=== PATIENT | female | born 2000 | race Caucasian/White ===

== ENCOUNTER 2021-04-07 16:18 | Outpatient (REF) | payer OTHER, MEDICAID, SELFPAY ==
[2021-04-07 18:00] LABS: Alanine Aminotransferase 50 U/L (0-31); Albumin Level 4.3 g/dL (3.5-5.0); Alkaline Phosphatase 52 U/L (39-117); Aspartate Amino Transferase 21 U/L (5-31); Bilirubin Direct < 0.2 mg/dL (0.0-0.5); Bilirubin Total 0.3 mg/dL (0.0-1.0); Total Protein 6.9 g/dL (6.5-8.0)
== END 2021-04-07 16:19 | disposition home or self-care (01) ==
LOC: HO.LAB 16:18
PROVIDERS: PCP Internal Medicine; Visit Provider Psychiatry & Neurology Neurology
DX: G35 Multiple sclerosis (principal)
CPT/HCPCS: 36415; 80076

== ENCOUNTER 2021-10-26 08:35 | Outpatient (REF) | payer OTHER, MEDICAID, SELFPAY | END 2021-10-26 08:36 | disposition home or self-care (01) | LOC: HO.MDS 08:35 | PROVIDERS: PCP Internal Medicine; Visit Provider Psychiatry & Neurology Neurology | DX: G35 Multiple sclerosis (principal) | CPT/HCPCS: 96365; J2930 ==

== ENCOUNTER 2021-10-27 08:53 | Outpatient (REF) | payer OTHER, MEDICAID, SELFPAY | END 2021-10-27 08:54 | disposition home or self-care (01) | LOC: HO.MDS 08:53 | PROVIDERS: PCP Internal Medicine; Visit Provider Psychiatry & Neurology Neurology | DX: G35 Multiple sclerosis (principal) | CPT/HCPCS: 96365; J2930 ==

== ENCOUNTER 2021-10-27 15:43 | Inpatient (IN) | payer OTHER, MEDICAID, SELFPAY ==
[2021-10-27] VITALS (9 sets, daily range): BP systolic 106–132; BP diastolic 68–109; PULSE 87–166; RESP 16–18; TEMP 37; O2SAT 98–99; BMI 49.7
--- NOTE | ~2021-10-27 | XR_ITS ---
EXAMINATION: XR CHEST CLINICAL INFORMATION: Shortness of breath COMPARISON: None TECHNIQUE: 2 views of the chest were obtained. FINDINGS: No significant abnormality is noted involving the heart, lungs, mediastinum, bony thorax or soft tissues. XR/XR chest 2V IMPRESSION: Unremarkable chest examination.
--- NOTE | 2021-10-27 15:47 | ECG_ITS ---
Test Reason : TACHYCARDIA Blood Pressure : / mmHG Vent. Rate : 161 BPM Atrial Rate : 000 BPM P-R Int : 000 ms QRS Dur : 068 ms QT Int : 272 ms P-R-T Axes : 000 044 048 degrees QTc Int : 445 ms Atrial fibrillation with rapid ventricular response Nonspecific ST abnormality Abnormal ECG When compared with ECG of 26-JAN-2019 02:03, Atrial fibrillation has replaced Sinus rhythm Vent. rate has increased BY [address] now depressed in Anterior leads Referred By: Daphne Walsh Electronically Signed By:Fredi Otoole
--- NOTE | 2021-10-27 15:58 | ECG_ITS ---
Test Reason : TACHYCARDIA Blood Pressure : / mmHG Vent. Rate : 113 BPM Atrial Rate : 000 BPM P-R Int : 000 ms QRS Dur : 070 ms QT Int : 318 ms P-R-T Axes : 000 041 040 degrees QTc Int : 436 ms Atrial fibrillation with rapid ventricular response Abnormal ECG When compared with ECG of 27-OCT-2021 15:44, No significant change was found Referred By: En Valladares Electronically Signed By:Fredi Otoole
[2021-10-27] MEDS: dilTIAZem HCL 50 MG/10 ML VIAL 10 MG IVPUSH ×2 (16:08→18:39)
--- NOTE | 2021-10-27 16:19 | ED_ITS ---
HPI - Arrhythmia/Palpitations General Chief Complaint: Arrhythmia/Palpitations Stated Complaint: RAPID HEART RATE 165 Time Seen by Provider: 10/27/21 15:47 Source: patient Mode of arrival: ambulatory Limitations: no limitations History of Present Illness HPI narrative: Patient is a 21-year-old female with a past medical history of SVT, multiple sclerosis. August 2021 was evaluated at [facility] for SVT requiring adenosine. She reports just prior to arrival around 1500 she was experiencing palpitations, shortness of breath, chest discomfort consistent with prior episodes of SVT. She trialed vagal maneuvers without improvement. The heart rate was irregular for EMS concerning for atrial fibrillation, no medications were given rate ranging from 140-180. Upon arrival to the emergency department she continued to have palpitations, but she reports that her chest discomfort and shortness of breath had improved, and heart rate was around 140s. She states earlier today she received a Solu-Medrol infusion for multiple sclerosis exacerbation. She is currently followed by [facility] neurology Dr. Atwood, is prescribed Gilenya for MS and has been on for 4-5 years. MD complaint: rapid heart beat and palpitations Onset (ago): hour(s) Time: 15:00 Duration: constant Arrhythmia history: SVT Associated symptoms: chest pain and shortness of breath Treatments prior to arrival: vagal maneuvers Related Data Home Medications Medication Instructions Recorded Confirmed cholecalciferol (vitamin D3) 1,250 1,250 mcg PO SA 10/27/21 10/27/21 mcg (50,000 unit) tablet fingolimod 0.5 mg capsule (Gilenya) 1 cap PO DAILY 10/27/21 10/27/21 norgestimate 0.25 mg-ethinyl 1 tab PO DAILY 10/27/21 10/27/21 estradiol 35 mcg tablet (Woodward-Linyah) Allergies Allergy/AdvReac Type Severity Reaction Status Date / Time glatiramer (copolymer 1) Allergy Intermediate SHORTNESS Verified 10/27/21 16:05 [From COPAXONE] OF BREATH Review of Systems Review of Systems: Constitutional: No weight loss, fever, chills, weakness or fatigue. HEENT: No visual loss, blurred vision, double vision. No sneezing, congestion, runny nose or sore throat. Skin: No rash or itching. Cardiovascular: + chest pain and palpitations. No pedal edema. Respiratory: + shortness of breath No cough or sputum production. Gastrointestinal: No anorexia, nausea, vomiting or diarrhea. No abdominal pain or blood in stool. Genitourinary: No burning micturition. No urinary frequency or incontinence. Neurologic: No headache, dizziness, syncope, unilateral weakness, ataxia, numbness or tingling in the extremities. Musculoskeletal: No muscle pain, back pain, joint pain or stiffness. Hematologic: No bleeding or bruising. Lymphatics: No enlarged lymph nodes. Psychiatric:No depression or anxiety. Endocrine: No reports of sweating. No cold or heat intolerance. No polyuria or polydipsia. [facility] Past Medical History Attestation statement: The following information was validated with the patient. Source: old records reviewed Medical History Multiple sclerosis PCOS (polycystic ovarian syndrome) SVT (supraventricular tachycardia) Social History Social History Patient Tobacco Use Status: Never used Tobacco Use of substances other than those prescribed or required for medical reasons: No Advance Directives: No Advance Directives Information Provided: No Physical Exam Vital Signs: Vital Signs: Last Vital Signs Pulse 112 H 10/27/21 17:38 Resp 16 10/27/21 17:38 BP 132/76 10/27/21 17:38 Pulse Ox 99 10/27/21 16:11 BMI result Body Mass Index 49.7 Vital signs have been reviewed and appeared to be correct. Blood pressure normal.? Heart rate irregular? Respiration rate normal. Temperature normal.? Oxygen saturation normal. Appearance: Alert.?Oriented to person, place and time. No acute distress.?Normal affect. Eyes: Pupils equal, round and reactive to light.? ENT: Pharynx normal.?? Neck: Normal inspection.? Neck supple.?? CVS: Heart sounds normal. Atrial fibrillation with RVR. Pulses normal.?? Respiratory: No respiratory distress.? Lung sounds clear to auscultation bilaterally?? Abdomen: Soft and non-tender. Normoactive bowel sounds. No pulsatile mass.?? Skin: Skin warm and dry.? Normal skin color.? Normal skin turgor.?? Extremities: No lower extremity edema.? No calf ttp? Neuro: Moves all extremities spontaneously. Sensation intact bilaterally. CN II- XII intact. No focal neuro deficits. Ambulates with normal steady gait. Course Course Course Narrative: Patient is a 21-year-old female who presents emergency department for evaluation of palpitations. Initial EKG on arrival reveals atrial fibrillation with RVR, approximate rate 161. Initially administered Cardizem 10 mg IV which decreased rate to the 110's, repeat EKG continues to reveal atrial fibrillation with RVR. Patient reports no past history of atrial fibrillation. At this time chest pain and shortness of breath have resolved. She is on oral contraceptives Iman is obese, denies history of cigarette smoking, personal history of DVT/PE with/cancer, recent hospitalizations/immobilization, extensive travel, will obtain D-dimer to exclude pulmonary embolism. Will obtain CBC to evaluate for leukocytosis/ anemia, CMP to evaluate for abnormal electrolytes /abnormal renal function/ abnormal hepatic function, EKG and troponin to evaluate for ischemia/ACS. TSH to evaluate for abnormal thyroid function. Chest x-ray to evaluate for consolidation/ infiltrate/ mass/ pulmonary congestion. Urinalysis to evaluate for infection. Will administer second dose of Cardizem 20 mg IV at this time for a total of 30 mg thus far. Reevaluation(s) Reevaluation #1: Patient continues to be in AFib with RVR, rate up to 160's. Patient to receive Cardizem 20mg IV. Troponin is elevated at 65.6 a few insert orders for repeat delta troponin. Hyperthyroidism, TSH is low 0.2 with free T4 of 0.88. CMP unremarkable. D-dimer <150, unlikely to be pulmonary embolism. CBC reveals a significant leukocytosis of 20.8, which may be secondary to IV corticosteroid, tachycardia, stressors, however, urinalysis and chest x-ray are pending at this time to evaluate for infectious process. Spoke with fish tender Dr. Otoole recommend hospital admission at this time, to consider beta-mireya for rate control given hyperthyroidism, can use long-acting if blood pressure will tolerate otherwise try short-acting. Hypotension. She continues to be well- appearing, denies chest pain or shortness of breath, ambulatory with steady gait, no diaphoresis. Time: 17:27 Reevaluation #2: At this time ordered Cardizem 10 mg IV bolus and Cardizem continuous infusion starting at 5 mg in addition to metoprolol tartrate 25 mg p.o. Spoke with hospitalist Dr. Garcia for admission and rate control accepted patient. Urinal ysis was sent, pending evaluation at this time. Patient and her mother updated on all results and plan of care, agreeable for admission. Time: 18:15 MDM - Arrhythmia/Palpitations Lab Data Result diagrams: 10/27/21 17:15 10/27/21 16:41 Labs: Lab Results 10/27/21 10/27/21 10/27/21 Range/Units 16:22 16:22 16:41 WBC (4.8-10.8) X10*3/uL RBC (4.20-5.50) X10*6/uL Hgb (12.0-16.0) g/dl Hct (37.0-47.0) % MCV (80.0-98.0) fL MCH (27.0-33.0) pg MCHC (31.0-35.0) g/dl RDW (11.0-16.0) % Plt Count (160-400) X10*3/uL MPV (9.4-12.3) fL Immature Gran % (Auto) (0.0-0.4) % Neut % (Auto) (45-73) % Lymph % (Auto) (20-40) % Woodward % (Auto) (2-11) % Eos % (Auto) (0-4) % Baso % (Auto) (0-2) % Lymph # (Auto) (1.2-4.9) X10*3/uL Woodward # (Auto) (0.1-1.2) X10*3/uL Eos # (Auto) (0.0-0.4) X10*3/uL Baso # (Auto) (0.0-0.2) X10*3/uL Abs Immat Gran (auto) (0.00-0.03) X10*3/uL Absolute Neuts (auto) (2.0-8.3) x10*3/uL Absolute Nucleated RBC (0.0-0.012) X10*3/uL Nucleated RBC % (auto) (0.0-0.2) /100WBC Smear Tech's Comments PT 10.3 (9.9-13.0) SEC INR 0.9 (0.9-1.1) APTT 25.6 (24.1-38.0) SEC D-Dimer High Sensitivty < 150 NG/ML Sodium 141 (135-145) mmol/L Potassium 4.7 (3.3-5.1) mmol/L Chloride 108 (96-108) mmol/L Carbon Dioxide 22 (22-29) mmol/L Anion Gap 16 (12-20) BUN 11 (9-16) mg/dL Creatinine 0.84 (0.5-1.4) mg/dL Estim Creat Clear Calc 136.6 Estimated GFR > 60 Random Glucose 201 H (60-115) mg/dL Calcium 10.1 (8.4-10.2) mg/dL Total Bilirubin 0.4 (0.0-1.0) mg/dL AST 14 (5-31) U/L ALT 24 (0-31) U/L Alkaline Phosphatase 62 (39-117) U/L Troponin I High Sens (<3.5-17.0) ng/L B-Natriuretic Peptide (<100) pg/mL Total Protein 7.6 (6.5-8.0) g/dL Albumin 4.5 (3.5-5.0) g/dL TSH 0.20 L (0.32-4.0) uIU/mL Free T4 0.88 (0.71-1.85) ng/dL Urine Color Urine Appearance Urine pH (5.0-8.0) Ur Specific Hoffman (1.005-1.025) Urine Protein (NEG-TRACE) MG/DL Urine Glucose (UA) (NEG) MG/DL Urine Ketones (NEG) MG/DL Urine Blood (NEG) Urine Nitrite (NEG) Ur Leukocyte Esterase (NEG) Urine Test (NEGATIVE) COVID-19 (JEWELL) (Negative) COVID-19 Clin Com 10/27/21 10/27/21 10/27/21 Range/Units 16:41 16:41 17:15 WBC 20.8 H (4.8-10.8) X10*3/uL RBC 4.87 (4.20-5.50) X10*6/uL Hgb 14.5 (12.0-16.0) g/dl Hct 43.4 (37.0-47.0) % MCV 89.1 (80.0-98.0) fL MCH 29.8 (27.0-33.0) pg MCHC 33.4 (31.0-35.0) g/dl RDW 12.3 (11.0-16.0) % Plt Count 453 H (160-400) X10*3/uL MPV 9.8 (9.4-12.3) fL Immature Gran % (Auto) 0.7 H (0.0-0.4) % Neut % (Auto) 94.3 H (45-73) % Lymph % (Auto) 2.6 L (20-40) % Woodward % (Auto) 2.2 (2-11) % Eos % (Auto) 0.0 (0-4) % Baso % (Auto) 0.2 (0-2) % Lymph # (Auto) 0.6 L (1.2-4.9) X10*3/uL Woodward # (Auto) 0.5 (0.1-1.2) X10*3/uL Eos # (Auto) 0.0 (0.0-0.4) X10*3/uL Baso # (Auto) 0.0 (0.0-0.2) X10*3/uL Abs Immat Gran (auto) 0.14 H (0.00-0.03) X10*3/uL Absolute Neuts (auto) 19.7 H (2.0-8.3) x10*3/uL Absolute Nucleated RBC 0.000 (0.0-0.012) X10*3/uL Nucleated RBC % (auto) 0.0 (0.0-0.2) /100WBC Smear Tech's Comments VERIFIED PT (9.9-13.0) SEC INR (0.9-1.1) APTT (24.1-38.0) SEC D-Dimer High Sensitivty NG/ML Sodium (135-145) mmol/L Potassium (3.3-5.1) mmol/L Chloride (96-108) mmol/L Carbon Dioxide (22-29) mmol/L Anion Gap (12-20) BUN (9-16) mg/dL Creatinine (0.5-1.4) mg/dL Estim Creat Clear Calc Estimated GFR Random Glucose (60-115) mg/dL Calcium (8.4-10.2) mg/dL Total Bilirubin (0.0-1.0) mg/dL AST (5-31) U/L ALT (0-31) U/L Alkaline Phosphatase (39-117) U/L Troponin I High Sens 65.6 H* (<3.5-17.0) ng/L B-Natriuretic Peptide 77 Cancelled (<100) pg/mL Total Protein (6.5-8.0) g/dL Albumin (3.5-5.0) g/dL TSH (0.32-4.0) uIU/mL Free T4 (0.71-1.85) ng/dL Urine Color Urine Appearance Urine pH (5.0-8.0) Ur Specific Hoffman (1.005-1.025) Urine Protein (NEG-TRACE) MG/DL Urine Glucose (UA) (NEG) MG/DL Urine Ketones (NEG) MG/DL Urine Blood (NEG) Urine Nitrite (NEG) Ur Leukocyte Esterase (NEG) Urine Test (NEGATIVE) COVID-19 (JEWELL) (Negative) COVID-19 Clin Com 10/27/21 10/27/21 10/27/21 Range/Units 18:06 18:06 18:06 WBC (4.8-10.8) X10*3/uL RBC (4.20-5.50) X10*6/uL Hgb (12.0-16.0) g/dl Hct (37.0-47.0) % MCV (80.0-98.0) fL MCH (27.0-33.0) pg MCHC (31.0-35.0) g/dl RDW (11.0-16.0) % Plt Count (160-400) X10*3/uL MPV (9.4-12.3) fL Immature Gran % (Auto) (0.0-0.4) % Neut % (Auto) (45-73) % Lymph % (Auto) (20-40) % Woodward % (Auto) (2-11) % Eos % (Auto) (0-4) % Baso % (Auto) (0-2) % Lymph # (Auto) (1.2-4.9) X10*3/uL Woodward # (Auto) (0.1-1.2) X10*3/uL Eos # (Auto) (0.0-0.4) X10*3/uL Baso # (Auto) (0.0-0.2) X10*3/uL Abs Immat Gran (auto) (0.00-0.03) X10*3/uL Absolute Neuts (auto) (2.0-8.3) x10*3/uL Absolute Nucleated RBC (0.0-0.012) X10*3/uL Nucleated RBC % (auto) (0.0-0.2) /100WBC Smear Tech's Comments PT (9.9-13.0) SEC INR (0.9-1.1) APTT (24.1-38.0) SEC D-Dimer High Sensitivty NG/ML Sodium (135-145) mmol/L Potassium (3.3-5.1) mmol/L Chloride (96-108) mmol/L Carbon Dioxide (22-29) mmol/L Anion Gap (12-20) BUN (9-16) mg/dL Creatinine (0.5-1.4) mg/dL Estim Creat Clear Calc Estimated GFR Random Glucose (60-115) mg/dL Calcium (8.4-10.2) mg/dL Total Bilirubin (0.0-1.0) mg/dL AST (5-31) U/L ALT (0-31) U/L Alkaline Phosphatase (39-117) U/L Troponin I High Sens (<3.5-17.0) ng/L B-Natriuretic Peptide (<100) pg/mL Total Protein (6.5-8.0) g/dL Albumin (3.5-5.0) g/dL TSH (0.32-4.0) uIU/mL Free T4 (0.71-1.85) ng/dL Urine Color YELLOW Urine Appearance CLEAR Urine pH 6.0 (5.0-8.0) Ur Specific Hoffman 1.020 (1.005-1.025) Urine Protein NEG (NEG-TRACE) MG/DL Urine Glucose (UA) 100 H (NEG) MG/DL Urine Ketones 5 (NEG) MG/DL Urine Blood NEG (NEG) Urine Nitrite NEG (NEG) Ur Leukocyte Esterase NEG (NEG) Urine Test NEGATIVE (NEGATIVE) COVID-19 (JEWELL) Negative (Negative) COVID-19 Clin Com See Note Discharge Plan Discharge Clinical Impression: Atrial fibrillation with rapid ventricular response, Multiple sclerosis, Hyperthyroidism Patient Disposition: Admitted As Inpatient
[2021-10-27] MEDS: dilTIAZem HCL 50 MG/10 ML VIAL 20 MG IVPUSH ×2 (16:21→17:34)
[2021-10-27 16:34] LABS: INTERNATIONAL NORM RATIO 0.9 (0.9-1.1); Prothrombin Time 10.3 SEC (9.9-13.0)
[2021-10-27 16:36] LABS: Partial Thromboplastin Time 25.6 SEC (24.1-38.0)
[2021-10-27 17:07] LABS: Alanine Aminotransferase 24 U/L (0-31); Albumin Level 4.5 g/dL (3.5-5.0); Alkaline Phosphatase 62 U/L (39-117); Anion Gap 16 (12-20); Aspartate Amino Transferase 14 U/L (5-31); Bilirubin Total 0.4 mg/dL (0.0-1.0); Blood Urea Nitrogen 11 mg/dL (9-16); Calcium 10.1 mg/dL (8.4-10.2); Carbon Dioxide 22 mmol/L (22-29); Chloride 108 mmol/L (96-108); Creatinine Clr Calc Pharmacy 136.6; Estimated Glomerular Filt Rate > 60; Glucose Random 201 mg/dL (60-115); Potassium 4.7 mmol/L (3.3-5.1); Sodium 141 mmol/L (135-145); Total Protein 7.6 g/dL (6.5-8.0)
[2021-10-27] MEDS: 0.9 % Sodium Chloride 1,000 ML 999 ML IV (17:10)
[2021-10-27 17:14] LABS: B Type Natriuretic Peptide 77 pg/mL (<100); Troponin-I High Sensitivity 65.6 ng/L (<3.5-17.0)
[2021-10-27 17:23] LABS: Hematocrit 43.4 % (37.0-47.0); Hemoglobin 14.5 g/dl (12.0-16.0); Mean Corpuscular HGB Conc 33.4 g/dl (31.0-35.0); Mean Corpuscular Hemoglobin 29.8 pg (27.0-33.0); Mean Corpuscular Volume 89.1 fL (80.0-98.0); Mean Platelet Volume 9.8 fL (9.4-12.3); Platelet Count 453 X10*3/uL (160-400); Red Blood Count 4.87 X10*6/uL (4.20-5.50); Red Cell Distribution Width 12.3 % (11.0-16.0); White Blood Count 20.8 X10*3/uL (4.8-10.8)
[2021-10-27 17:24] LABS: Basophils Percent Auto 0.2 % (0-2); Imm Gran Abs Auto 0.14 X10*3/uL (0.00-0.03); Imm Gran Pct Auto 0.7 % (0.0-0.4); Lymphocytes Absolute Auto 0.6 X10*3/uL (1.2-4.9); Lymphocytes Percent Auto 2.6 % (20-40); MANUAL DIFF FLAG SCAN; Monocytes Absolute Auto 0.5 X10*3/uL (0.1-1.2); Monocytes Percent Auto 2.2 % (2-11); Neutrophils Absolute Auto 19.7 x10*3/uL (2.0-8.3); Neutrophils Percent Auto 94.3 % (45-73); SCAN SMEAR FLAG 1
[2021-10-27 17:24] LABS: D Dimer High Sensitivity < 150 NG/ML
[2021-10-27 17:43] LABS: SLIDE REVIEW VERIFIED
[2021-10-27 18:04] LABS: Free T4 (Free Thyroxine) 0.88 ng/dL (0.71-1.85)
[2021-10-27 18:17] LABS: Appearance Urine CLEAR; Color Urine YELLOW; Glucose Urine UA 100 MG/DL (NEG); Leukocyte Esterase Urine NEG (NEG); Nitrite Urine NEG (NEG); Urine Blood NEG (NEG); Urine Ketones 5 MG/DL (NEG); Urine Pregnancy NEGATIVE (NEGATIVE); Urine Protein NEG (NEG-TRACE)
[2021-10-27 18:18] LABS: UPreg QC Valid YES
[2021-10-27 18:30] LABS: COVID-19 Test Negative (Negative); IDNOW Serial# 55D5AD1C
[2021-10-27] MEDS: Metoprolol Tartrate 25 MG TABLET PO ×2 (18:31→20:16)
[2021-10-27] MEDS: dilTIAZem HCL 125 MG in 0.9 % Sodium Chloride 100 ML 10 MG IVCONT (18:40)
--- NOTE | 2021-10-27 18:42 | PHA.MEDREC ---
Pharmacy Consult ? Medication Reconciliation Pharmacy has completed the medication reconciliation.
--- NOTE | 2021-10-27 19:17 | PC.NURSE ---
As per MD's order Cardizem increased to 15mg/hr. pt denies any complaints. Pt alert respirations easy, n/l. skin w/d. pt denies any cp at this time. Mother at bedside with pt.
--- NOTE | 2021-10-27 20:04 | P.HPHOSP_ITS ---
History of Present Illness Date of Service: 10/27/21 Chief Complaint: Palpitations 21-year-old female with a past medical history of multiple sclerosis presented to the hospital today with a chief complaint of palpitations. Patient reports that in August of 2021 she had SVT. Today she felt palpitations, nausea, vomiting, mild lightheadedness. Denies any chest pain or shortness of breath at the time of my interview reports her symptoms improving. Denies any fever chills cough. Patient reports that about 2 weeks ago she had possible multiple sclerosis flare -had left leg weakness and numbness. Spoke into her neurologist Dr. Atwood couple days ago and who prescribed her with prednisone took 2 doses and last dose is pending tomorrow morning. reports that her multiple sclerosis symptoms currently resolved. Review of all other systems is negative except mentioned above ER course: Per ER team patient noted to be in AFib with RVR; no significant improvement with IV pushes; subsequently started on diltiazem drip. Cardiology on-call was notified. Admitted for further management [facility] Medical History (Updated 11/03/21 @ 00:02 by Farnaz Stinson) Atrial fibrillation with rapid ventricular response Hyperthyroidism Multiple sclerosis Multiple sclerosis Paroxysmal atrial fibrillation PCOS (polycystic ovarian syndrome) SVT (supraventricular tachycardia) Social History Household Members: Significant Other Housing: Apartment Patient Tobacco Use Status: Never used Tobacco service: No Current occupational status: employed Meds Allergies Allergy/AdvReac Type Severity Reaction Status Date / Time glatiramer (copolymer 1) Allergy Intermediate SHORTNESS Verified 10/27/21 16:05 [From COPAXONE] OF BREATH Active Medications: Current Medications Acetaminophen (Acetaminophen 325 Mg Tablet) 650 mg PO Q6H PRN PRN Reason: Pain, Mild (Pain Scale 1-3) Enoxaparin Sodium (Enoxaparin Sodium 40 Mg/0.4 Ml Syringe) 40 mg SUBCUT Q24H [facility] Diltiazem HCl 125 mg/ Sodium (Chloride) 125 mls @ 0 mls/hr IVCONT .Q0M [facility]; Protocol Last Admin: 10/27/21 18:40 Dose: 10 mg/hr, 10 mls/hr Documented by: Melatonin (Melatonin 3 Mg Tablet) 6 mg PO BEDTIME PRN PRN Reason: Insomnia Metoprolol Tartrate (Metoprolol Tartrate 25 Mg Tablet) 25 mg PO BID PAULETTE; Protocol Pharmacy Consult (Consult Rx Perform Med Rec) 1 each MISCELLANE ONCE PRN PRN Reason: Consult order Senna (Sennosides 8.6 Mg Tablet) 17.2 mg PO BEDTIME PRN PRN Reason: Constipation Sodium Chloride (0.9 % Sodium Chloride Flush 3 Ml Syringe) 3 ml IVFLUSH QSHIFT [facility] Home Medications Medication Instructions Recorded Confirmed Last Taken Type cholecalciferol (vitamin D3) 1,250 1,250 mcg PO SA 10/27/21 11/01/21 10/22/21 History mcg (50,000 unit) tablet norgestimate 0.25 mg-ethinyl 1 tab PO DAILY 10/27/21 11/01/21 10/27/21 History estradiol 35 mcg tablet (Candler-Linyah) flecainide 150 mg tablet 150 mg PO BID PRN 11/01/21 11/01/21 Unknown History Physical Exam Vital Signs and Narrative: Vital Signs: Last Vital Signs Temp 98.6 F 10/27/21 18:41 Pulse 134 H 10/27/21 18:41 Resp 16 10/27/21 17:38 BP 126/70 10/27/21 18:41 Pulse Ox 99 10/27/21 16:11 BMI result Body Mass Index 49.7 Gen: Appears be in no acute distress HEENT: NCAT, Moist mucosa. Pulmonary: Vesicular breath sounds, fair air entry CVS: Normal S1-S2 Abdomen: BS+, Soft, Nontender Extremities: Warm well perfused Neuro: Alert and awake. Results Labs CBC and Chem 7: 10/28/21 06:12 10/27/21 16:41 Labs: Laboratory Results - last 24 hr 10/27/21 10/27/21 10/27/21 16:22 16:22 16:41 MCV MCH MCHC RDW Plt Count MPV Immature Gran % (Auto) Neut % (Auto) Lymph % (Auto) Candler % (Auto) Eos % (Auto) Baso % (Auto) Lymph # (Auto) Candler # (Auto) Eos # (Auto) Baso # (Auto) Abs Immat Gran (auto) Absolute Neuts (auto) Absolute Nucleated RBC Nucleated RBC % (auto) Smear Tech's Comments PT 10.3 INR 0.9 APTT 25.6 D-Dimer High Sensitivty < 150 Anion Gap 16 Estim Creat Clear Calc 136.6 Estimated GFR > 60 Random Glucose 201 H Calcium 10.1 Total Bilirubin 0.4 AST 14 ALT 24 Alkaline Phosphatase 62 B-Natriuretic Peptide Total Protein 7.6 Albumin 4.5 TSH 0.20 L Free T4 0.88 Urine Color Urine Appearance Urine pH Ur Specific Ione Urine Protein Urine Glucose (UA) Urine Ketones Urine Blood Urine Nitrite Ur Leukocyte Esterase Urine Test COVID-19 (JEWELL) COVID-19 [employer] Com 10/27/21 10/27/21 10/27/21 16:41 16:41 17:15 MCV 89.1 MCH 29.8 MCHC 33.4 RDW 12.3 Plt Count 453 H MPV 9.8 Immature Gran % (Auto) 0.7 H Neut % (Auto) 94.3 H Lymph % (Auto) 2.6 L Candler % (Auto) 2.2 Eos % (Auto) 0.0 Baso % (Auto) 0.2 Lymph # (Auto) 0.6 L Candler # (Auto) 0.5 Eos # (Auto) 0.0 Baso # (Auto) 0.0 Abs Immat Gran (auto) 0.14 H Absolute Neuts (auto) 19.7 H Absolute Nucleated RBC 0.000 Nucleated RBC % (auto) 0.0 Smear Tech's Comments VERIFIED PT INR APTT D-Dimer High Sensitivty Anion Gap Estim Creat Clear Calc Estimated GFR Random Glucose Calcium Total Bilirubin AST ALT Alkaline Phosphatase B-Natriuretic Peptide 77 Cancelled Total Protein Albumin TSH Free T4 Urine Color Urine Appearance Urine pH Ur Specific Ione Urine Protein Urine Glucose (UA) Urine Ketones Urine Blood Urine Nitrite Ur Leukocyte Esterase Urine Test COVID-19 (JEWELL) COVID-19 [employer] 10/27/21 10/27/21 10/27/21 18:06 18:06 18:06 MCV MCH MCHC RDW Plt Count MPV Immature Gran % (Auto) Neut % (Auto) Lymph % (Auto) Candler % (Auto) Eos % (Auto) Baso % (Auto) Lymph # (Auto) Candler # (Auto) Eos # (Auto) Baso # (Auto) Abs Immat Gran (auto) Absolute Neuts (auto) Absolute Nucleated RBC Nucleated RBC % (auto) Smear Tech's Comments PT INR APTT D-Dimer High Sensitivty Anion Gap Estim Creat Clear Calc Estimated GFR Random Glucose Calcium Total Bilirubin AST ALT Alkaline Phosphatase B-Natriuretic Peptide Total Protein Albumin TSH Free T4 Urine Color YELLOW Urine Appearance CLEAR Urine pH 6.0 Ur Specific Ione 1.020 Urine Protein NEG Urine Glucose (UA) 100 H Urine Ketones 5 Urine Blood NEG Urine Nitrite NEG Ur Leukocyte Esterase NEG Urine Test NEGATIVE COVID-19 (JEWELL) Negative COVID-19 Clin Com See Note Imaging Radiologist's Impressions: Impressions Chest X-Ray 10/27/21 17:30 IMPRESSION: Unremarkable chest examination. Assessment and Plan (1) Paroxysmal atrial fibrillation: Status: Acute Plan 21-year-old female with a past medical history of MS, history of SVT; presented to the hospital today with a chief complaint of palpitations. Noted to be in new onset AFib with RVR. Admitted for further management. New onset AFib: Patient currently on diltiazem drip - heart rate gradually improving. Will titrate on the diltiazem. Cardiology consult on-call was notified - suggested beta-mireya. Patient is on Gilenya - which interacts with Metoprolol Causes bradycardia. CHADVASC 1. Echo. TSH 0.2 but T4 wnl--> recommended repeat thyroid profile in 4-6weeks with PCP Ddimer negative. history of multiple sclerosis: Patient reported that 2 weeks ago she had left lower extremity numbness and weakness; was prescribed on prednisone by her neurologist Dr. Atwood- last dose (3rd) on 10/29/21 AM. DVT prophylaxis: Lovenox Code status: Full code Quality Stroke Does the patient have a stroke diagnosis?: No VTE Prior VTE?: No VTE Risk Level:: Medical - moderate - high VTE Device Contraindication: Treatment Not Indicated VTE Drug Contraindication: Treatment Not Indicated
[2021-10-27] MEDS: Enoxaparin Sodium 40 MG/0.4 ML SYRINGE SUBCUT (20:16)
--- NOTE | 2021-10-27 20:20 | PC.NURSE ---
pt remains on monitor with hr 114. pt denies complaints. respirations easy, n/l.
[2021-10-27 20:36] LABS: Troponin-I High Sensitivity 93.8 ng/L (<3.5-17.0)
--- NOTE | 2021-10-27 21:37 | PC.NURSE ---
HOSPITALIST IN ROOM FOR EVAL. LABS BEING REDRAWN.
--- NOTE | 2021-10-27 21:42 | HE.PHANOTE ---
RE: Patient own medications Patient's family to bring OCP on 10/27/2021. Patient had one Gilenya capsule in their pill box, but will arrange to have more brought in tomorrow. Thanks Kori Olmstead
--- NOTE | 2021-10-27 22:15 | PC.NURSE ---
PT REQUESTING FOOD AND IS EATING TURKEY SANDWICH. CARDIZEM UP AND CONTINUES TO RUN AT 15ML/HR WITH A HR OF 90-94. PT DENIES COMPLAINTS, DENIES CP OR SOB. PT AWAITING FOR ROOM ASSIGNMENT. WILL CONTINUE TO MONITOR PT
--- NOTE | 2021-10-27 22:25 | PC.NURSE ---
PT UP TO RESTROOM WITH STEADY EVEN GAIT.
--- NOTE | 2021-10-28 00:43 | PC.NURSE ---
med was pulled under her name by accident and was witness wasted with tamika Cunningham.
--- NOTE | 2021-10-28 00:46 | PC.NURSE ---
report to USMAN Lehman pt to floor on monitor with Cardizem up and running on pump as per emar.
[2021-10-28 01:11] VITALS: BP 135/75; PULSE 97; RESP 22; TEMP 36.7; O2SAT 97
[2021-10-28 01:20] VITALS: BMI 48.6
[2021-10-28 03:37] VITALS: BP 108/59; PULSE 85; RESP 15; TEMP 37.1; O2SAT 97
[2021-10-28 06:52] LABS: Basophils Percent Auto 0.1 % (0-2); Hematocrit 41.5 % (37.0-47.0); Hemoglobin 13.4 g/dl (12.0-16.0); Imm Gran Abs Auto 0.14 X10*3/uL (0.00-0.03); Imm Gran Pct Auto 0.7 % (0.0-0.4); Lymphocytes Absolute Auto 0.6 X10*3/uL (1.2-4.9); Lymphocytes Percent Auto 3.1 % (20-40); MANUAL DIFF FLAG SCAN; Mean Corpuscular HGB Conc 32.3 g/dl (31.0-35.0); Mean Corpuscular Hemoglobin 29.5 pg (27.0-33.0); Mean Corpuscular Volume 91.4 fL (80.0-98.0); Mean Platelet Volume 10.7 fL (9.4-12.3); Monocytes Absolute Auto 0.9 X10*3/uL (0.1-1.2); Monocytes Percent Auto 4.6 % (2-11); Neutrophils Percent Auto 91.5 % (45-73); Platelet Count 392 X10*3/uL (160-400); Red Blood Count 4.54 X10*6/uL (4.20-5.50); Red Cell Distribution Width 12.4 % (11.0-16.0); SCAN SMEAR FLAG 1; White Blood Count 19.7 X10*3/uL (4.8-10.8)
[2021-10-28 07:11] LABS: Magnesium 2.3 mg/dL (1.6-2.6)
[2021-10-28 07:13] LABS: Cholesterol 242 mg/dL; HDL Cholesterol 48 mg/dL; LDL Cholesterol Calculated 177 mg/dl; Triglycerides 89 mg/dL
[2021-10-28 07:52] LABS: SLIDE REVIEW VERIFIED
[2021-10-28 08:00] VITALS: BP 119/53; PULSE 82; RESP 18; TEMP 37.4; O2SAT 97
[2021-10-28] MEDS: 0.9 % Sodium Chloride Flush 3 ML SYRINGE IVFLUSH ×2 (08:46→16:48)
--- NOTE | 2021-10-28 09:04 | P.PNIM_ITS ---
Subjective Subjective Date of Service: 10/28/21 Interval History: f/u afib, in sinus rythm, h/o MS Review of Systems Gen: no fever Resp: no sob, no cough CV: no chest, no GABRIEL, no leg edema GI: No n/v, no abd pain Neuro: No confusion Physical Exam Vital Signs: Vital Signs: Last Vital Signs Temp 99.3 F 10/28/21 08:00 Pulse 82 10/28/21 08:00 Resp 18 10/28/21 08:00 BP 119/53 L 10/28/21 08:00 Pulse Ox 97 10/28/21 08:00 BMI result Body Mass Index 48.6 Const: Other: General: AO X 3, no acute distress Resp: CTA bilateral CVS: S1,S2,RRR GI: +BS, NT, no distention Skin: No rash Neuro: motor grossly intact Psych: appropriate affect Objective Data Active Medications Acetaminophen (Acetaminophen 325 Mg Tablet) 650 mg PO Q6H PRN PRN Reason: Pain, Mild (Pain Scale 1-3) Enoxaparin Sodium (Enoxaparin Sodium 40 Mg/0.4 Ml Syringe) 40 mg SUBCUT Q24H [facility] Last Admin: 10/27/21 20:16 Dose: 40 mg Documented by: DEBORAH Diltiazem HCl 125 mg/ Sodium (Chloride) 125 mls @ 0 mls/hr IVCONT .Q0M [facility]; Protocol Last Titration: 10/28/21 08:31 Dose: 0 mg/hr, 0 mls/hr Documented by: ANA Methylprednisolone Sodium Succinate 1,000 mg/ Sodium Chloride 66 mls @ 66 mls/hr IV ONCE@1030 [facility] Stop: 10/28/21 11:29 Melatonin (Melatonin 3 Mg Tablet) 6 mg PO BEDTIME PRN PRN Reason: Insomnia Metoprolol Tartrate (Metoprolol Tartrate 25 Mg Tablet) 25 mg PO BID [facility]; Protocol Non-Formulary Medication (Cholecalciferol (Vitamin D3)) 1,250 mcg PO [facility] Patient Own Med ( Fingolimod [Gilenya] 0.5 Mg Capsule) 1 each PO DAILY [facility] Patient Own Med ( [place] Linyah 0.25mg-0 .035mg) 1 each PO DAILY [facility] Pharmacy Consult (Consult Rx Perform Med Rec) 1 each MISCELLANE ONCE PRN PRN Reason: Consult order Senna (Sennosides 8.6 Mg Tablet) 17.2 mg PO BEDTIME PRN PRN Reason: Constipation Sodium Chloride (0.9 % Sodium Chloride Flush 3 Ml Syringe) 3 ml IVFLUSH QSHIFT [facility] Last Admin: 10/28/21 08:46 Dose: 3 ml Documented by: ANA Labs CBC & Chem 7: 10/28/21 06:12 10/27/21 16:41 Labs: Laboratory Results - last 24 hr 10/27/21 10/27/21 10/27/21 16:22 16:22 16:41 MCV MCH MCHC RDW Plt Count MPV Immature Gran % (Auto) Neut % (Auto) Lymph % (Auto) [place] % (Auto) Eos % (Auto) Baso % (Auto) Lymph # (Auto) [place] # (Auto) Eos # (Auto) Baso # (Auto) Abs Immat Gran (auto) Absolute Neuts (auto) Absolute Nucleated RBC Nucleated RBC % (auto) Smear Tech's Comments PT 10.3 INR 0.9 APTT 25.6 D-Dimer High Sensitivty < 150 Anion Gap 16 Estim Creat Clear Calc 136.6 Estimated GFR > 60 Random Glucose 201 H Calcium 10.1 Magnesium Total Bilirubin 0.4 AST 14 ALT 24 Alkaline Phosphatase 62 B-Natriuretic Peptide Total Protein 7.6 Albumin 4.5 Triglycerides Cholesterol LDL Cholesterol, Calc HDL Cholesterol TSH 0.20 L Free T4 0.88 Urine Color Urine Appearance Urine pH Ur Specific [place] Urine Protein Urine Glucose (UA) Urine Ketones Urine Blood Urine Nitrite Ur Leukocyte Esterase Urine Test COVID-19 ([facility]) COVID-19 Clin Com 10/27/21 10/27/21 10/27/21 16:41 16:41 17:15 MCV 89.1 MCH 29.8 MCHC 33.4 RDW 12.3 Plt Count 453 H MPV 9.8 Immature Gran % (Auto) 0.7 H Neut % (Auto) 94.3 H Lymph % (Auto) 2.6 L [place] % (Auto) 2.2 Eos % (Auto) 0.0 Baso % (Auto) 0.2 Lymph # (Auto) 0.6 L [place] # (Auto) 0.5 Eos # (Auto) 0.0 Baso # (Auto) 0.0 Abs Immat Gran (auto) 0.14 H Absolute Neuts (auto) 19.7 H Absolute Nucleated RBC 0.000 Nucleated RBC % (auto) 0.0 Smear Tech's Comments VERIFIED PT INR APTT D-Dimer High Sensitivty Anion Gap Estim Creat Clear Calc Estimated GFR Random Glucose Calcium Magnesium Total Bilirubin AST ALT Alkaline Phosphatase B-Natriuretic Peptide 77 Cancelled Total Protein Albumin Triglycerides Cholesterol LDL Cholesterol, Calc HDL Cholesterol TSH Free T4 Urine Color Urine Appearance Urine pH Ur Specific [place] Urine Protein Urine Glucose (UA) Urine Ketones Urine Blood Urine Nitrite Ur Leukocyte Esterase Urine Test COVID-19 ([facility]) COVID-19 Clin Com 10/27/21 10/27/21 10/27/21 18:06 18:06 18:06 MCV MCH MCHC RDW Plt Count MPV Immature Gran % (Auto) Neut % (Auto) Lymph % (Auto) [place] % (Auto) Eos % (Auto) Baso % (Auto) Lymph # (Auto) [place] # (Auto) Eos # (Auto) Baso # (Auto) Abs Immat Gran (auto) Absolute Neuts (auto) Absolute Nucleated RBC Nucleated RBC % (auto) Smear Tech's Comments PT INR APTT D-Dimer High Sensitivty Anion Gap Estim Creat Clear Calc Estimated GFR Random Glucose Calcium Magnesium Total Bilirubin AST ALT Alkaline Phosphatase B-Natriuretic Peptide Total Protein Albumin Triglycerides Cholesterol LDL Cholesterol, Calc HDL Cholesterol TSH Free T4 Urine Color YELLOW Urine Appearance CLEAR Urine pH 6.0 Ur Specific [place] 1.020 Urine Protein NEG Urine Glucose (UA) 100 H Urine Ketones 5 Urine Blood NEG Urine Nitrite NEG Ur Leukocyte Esterase NEG Urine Test NEGATIVE COVID-19 ([facility]) Negative COVID-19 Clin Com See Note 10/28/21 10/28/21 10/28/21 06:12 06:12 06:12 MCV 91.4 MCH 29.5 MCHC 32.3 RDW 12.4 Plt Count 392 MPV 10.7 Immature Gran % (Auto) 0.7 H Neut % (Auto) 91.5 H Lymph % (Auto) 3.1 L [place] % (Auto) 4.6 Eos % (Auto) 0.0 Baso % (Auto) 0.1 Lymph # (Auto) 0.6 L [place] # (Auto) 0.9 Eos # (Auto) 0.0 Baso # (Auto) 0.0 Abs Immat Gran (auto) 0.14 H Absolute Neuts (auto) 18.0 H Absolute Nucleated RBC 0.000 Nucleated RBC % (auto) 0.0 Smear Tech's Comments VERIFIED PT INR APTT D-Dimer High Sensitivty Anion Gap Estim Creat Clear Calc Estimated GFR Random Glucose Calcium Magnesium 2.3 Total Bilirubin AST ALT Alkaline Phosphatase B-Natriuretic Peptide Total Protein Albumin Triglycerides 89 Cholesterol 242 LDL Cholesterol, Calc 177 HDL Cholesterol 48 TSH Free T4 Urine Color Urine Appearance Urine pH Ur Specific [place] Urine Protein Urine Glucose (UA) Urine Ketones Urine Blood Urine Nitrite Ur Leukocyte Esterase Urine Test COVID-19 ([facility]) COVID-19 Clin Com Assessment and Plan (1) Atrial fibrillation with rapid ventricular response: Status: Acute (2) Multiple sclerosis: Status: Acute (3) Hyperthyroidism: Status: Acute Plan 21/morbidly obese with h/o SVTs, PCOS here with atrial tachycardia 1/Lone AFIB--in sinus, stop cardizem, start metoprolol 25 bid. Echo. No indication for anticoation. Will see what cardiology has to say 2/elevated troponin--d/t AFIB with RVR, echo as above, no further testing at this time unless cardiology advises otherwise 3/ MS--I don't think there is exacerbation, I will check with Dr. Atwood to see if we need to continue IV high dose steroid, and to follow up with Dr. Atwood 4/ Morbid obesity--weight loss advised, aware of health benefits of loosing we ight and options available to her 5/Leukocytosis d/t steroid 6/Suppresed TSH o.2 and FT4, I don't think this cause of AFIB, Quality Stroke Does the patient have a stroke diagnosis?: No VTE Prior VTE?: No VTE Risk Level:: Medical - moderate - high VTE Device Contraindication: Treatment Not Indicated VTE Drug Contraindication: Treatment Not Indicated
--- NOTE | 2021-10-28 09:17 | PM.DS ---
DS: Providers Provider Date of Service: 10/28/21 Date of admission: 10/27/21 19:07 Primary care physician: Tiffanie Rodriguez MD Consults: 10/27/21 19:06 Consult to Cardiology Routine Consulting Provider: Fredi Otoole Reason for consultation: afib rvr; elevated trops Consult to Neurology Routine Consulting Provider: [facility] Reason for consultation: MS flare DS: Diagnosis Discharge Diagnosis (1) Atrial fibrillation with rapid ventricular response: Status: Acute (2) Multiple sclerosis: Status: Acute (3) Hyperthyroidism: Status: Acute DS: Summary Hospital Course Hospital Course: Chief Complaint: Palpitations 21-year-old female with a past medical history of multiple sclerosis presented to the hospital today with a chief complaint of palpitations.? Patient reports that in August of 2021 she had SVT.? Today she felt palpitations, nausea, vomiting, mild lightheadedness.? Denies any chest pain or shortness of breath ?at the time of my interview reports her symptoms improving.? Denies any fever chills cough.? Patient reports that about 2 weeks ago she had possible multiple sclerosis flare -had left leg weakness and numbness.? Spoke into her neurologist Dr. Atwood couple days ago and who prescribed her with prednisone took 2 doses and last dose is pending tomorrow morning.? reports that her multiple sclerosis symptoms currently resolved. Review of all other systems is negative except mentioned above ?ER course: Per ER team patient noted to be in AFib with RVR; no significant improvement with IV pushes; subsequently started on diltiazem drip.? Cardiology on-call was notified.? Admitted for further management Hospital course: 21 morbidly obese with h/o SVTs, PCOS here with atrial tachycardia 1/Lone AFIB--Heart rate was as high as 160s and ECG consistent with AFIB, she was given IV cardizem boluses and ultimately put on IV cardizem drip and eventually converted to sinus rythm and now on PO metoprolol 25 bid to prevent recurrent. Echo..... Trigger of AFIB is unknown but question raised about Golimod and [place] Linyah (MS medications) 2/elevated troponin--d/t AFIB with RVR, echo as above, no further testing at this time unless cardiology advises otherwise 3/ MS--I don't think there is exacerbation, I will check with Dr. Atwood to see if we need to continue IV high dose steroid,? and to follow up with Dr. Atwood 4/ Morbid obesity--weight loss advised, aware of health benefits of loosing weight and options available to her 5/Leukocytosis d/t steroid Time Spent with Patient Time attestation: Total time spent providing and/or coordinating discharge services: Discharge coordination time: Greater than 30 minutes Quality: Stroke Does the patient have a stroke diagnosis?: No Physical Exam Vital Signs: Vital Signs: Last Vital Signs Temp 99.3 F 10/28/21 08:00 Pulse 82 10/28/21 08:00 Resp 18 10/28/21 08:00 BP 119/53 L 10/28/21 08:00 Pulse Ox 97 10/28/21 08:00 BMI result Body Mass Index 48.6 DS: Data Data Completed and Pending Labs on day of discharge: Laboratory Results - last 24 hr 10/27/21 10/27/21 10/27/21 16:22 16:22 16:41 WBC RBC Hgb Hct MCV MCH MCHC RDW Plt Count MPV Immature Gran % (Auto) Neut % (Auto) Lymph % (Auto) [place] % (Auto) Eos % (Auto) Baso % (Auto) Lymph # (Auto) [place] # (Auto) Eos # (Auto) Baso # (Auto) Abs Immat Gran (auto) Absolute Neuts (auto) Absolute Nucleated RBC Nucleated RBC % (auto) Smear Tech's Comments PT 10.3 INR 0.9 APTT 25.6 D-Dimer High Sensitivty < 150 Sodium 141 Potassium 4.7 Chloride 108 Carbon Dioxide 22 Anion Gap 16 BUN 11 Creatinine 0.84 Estim Creat Clear Calc 136.6 Estimated GFR > 60 Random Glucose 201 H Calcium 10.1 Magnesium Total Bilirubin 0.4 AST 14 ALT 24 Alkaline Phosphatase 62 Troponin I High Sens B-Natriuretic Peptide Total Protein 7.6 Albumin 4.5 Triglycerides Cholesterol LDL Cholesterol, Calc HDL Cholesterol TSH 0.20 L Free T4 0.88 Urine Color Urine Appearance Urine pH Ur Specific [place] Urine Protein Urine Glucose (UA) Urine Ketones Urine Blood Urine Nitrite Ur Leukocyte Esterase Urine Test COVID-19 ([facility]) COVID-19 Clin Com 10/27/21 10/27/21 10/27/21 16:41 16:41 17:15 WBC 20.8 H RBC 4.87 Hgb 14.5 Hct 43.4 MCV 89.1 MCH 29.8 MCHC 33.4 RDW 12.3 Plt Count 453 H MPV 9.8 Immature Gran % (Auto) 0.7 H Neut % (Auto) 94.3 H Lymph % (Auto) 2.6 L [place] % (Auto) 2.2 Eos % (Auto) 0.0 Baso % (Auto) 0.2 Lymph # (Auto) 0.6 L [place] # (Auto) 0.5 Eos # (Auto) 0.0 Baso # (Auto) 0.0 Abs Immat Gran (auto) 0.14 H Absolute Neuts (auto) 19.7 H Absolute Nucleated RBC 0.000 Nucleated RBC % (auto) 0.0 Smear Tech's Comments VERIFIED PT INR APTT D-Dimer High Sensitivty Sodium Potassium Chloride Carbon Dioxide Anion Gap BUN Creatinine Estim Creat Clear Calc Estimated GFR Random Glucose Calcium Magnesium Total Bilirubin AST ALT Alkaline Phosphatase Troponin I High Sens 65.6 H* B-Natriuretic Peptide 77 Cancelled Total Protein Albumin Triglycerides Cholesterol LDL Cholesterol, Calc HDL Cholesterol TSH Free T4 Urine Color Urine Appearance Urine pH Ur Specific [place] Urine Protein Urine Glucose (UA) Urine Ketones Urine Blood Urine Nitrite Ur Leukocyte Esterase Urine Test COVID-19 ([facility]) COVID-19 Clin [facility] 10/27/21 10/27/21 10/27/21 18:06 18:06 18:06 WBC RBC Hgb Hct MCV MCH MCHC RDW Plt Count MPV Immature Gran % (Auto) Neut % (Auto) Lymph % (Auto) [place] % (Auto) Eos % (Auto) Baso % (Auto) Lymph # (Auto) [place] # (Auto) Eos # (Auto) Baso # (Auto) Abs Immat Gran (auto) Absolute Neuts (auto) Absolute Nucleated RBC Nucleated RBC % (auto) Smear Tech's Comments PT INR APTT D-Dimer High Sensitivty Sodium Potassium Chloride Carbon Dioxide Anion Gap BUN Creatinine Estim Creat Clear Calc Estimated GFR Random Glucose Calcium Magnesium Total Bilirubin AST ALT Alkaline Phosphatase Troponin I High Sens B-Natriuretic Peptide Total Protein Albumin Triglycerides Cholesterol LDL Cholesterol, Calc HDL Cholesterol TSH Free T4 Urine Color YELLOW Urine Appearance CLEAR Urine pH 6.0 Ur Specific [place] 1.020 Urine Protein NEG Urine Glucose (UA) 100 H Urine Ketones 5 Urine Blood NEG Urine Nitrite NEG Ur Leukocyte Esterase NEG Urine Test NEGATIVE COVID-19 ([facility]) Negative COVID-19 Clin Com See Note 10/27/21 10/28/21 10/28/21 20:07 06:12 06:12 WBC 19.7 H RBC 4.54 Hgb 13.4 Hct 41.5 MCV 91.4 MCH 29.5 MCHC 32.3 RDW 12.4 Plt Count 392 MPV 10.7 Immature Gran % (Auto) 0.7 H Neut % (Auto) 91.5 H Lymph % (Auto) 3.1 L [place] % (Auto) 4.6 Eos % (Auto) 0.0 Baso % (Auto) 0.1 Lymph # (Auto) 0.6 L [place] # (Auto) 0.9 Eos # (Auto) 0.0 Baso # (Auto) 0.0 Abs Immat Gran (auto) 0.14 H Absolute Neuts (auto) 18.0 H Absolute Nucleated RBC 0.000 Nucleated RBC % (auto) 0.0 Smear Tech's Comments VERIFIED PT INR APTT D-Dimer High Sensitivty Sodium Potassium Chloride Carbon Dioxide Anion Gap BUN Creatinine Estim Creat Clear Calc Estimated GFR Random Glucose Calcium Magnesium Total Bilirubin AST ALT Alkaline Phosphatase Troponin I High Sens 93.8 H* B-Natriuretic Peptide Total Protein Albumin Triglycerides 89 Cholesterol 242 LDL Cholesterol, Calc 177 HDL Cholesterol 48 TSH Free T4 Urine Color Urine Appearance Urine pH Ur Specific [place] Urine Protein Urine Glucose (UA) Urine Ketones Urine Blood Urine Nitrite Ur Leukocyte Esterase Urine Test COVID-19 ([facility]) COVID-19 Clin Com 10/28/21 06:12 WBC RBC Hgb Hct MCV MCH MCHC RDW Plt Count MPV Immature Gran % (Auto) Neut % (Auto) Lymph % (Auto) [place] % (Auto) Eos % (Auto) Baso % (Auto) Lymph # (Auto) [place] # (Auto) Eos # (Auto) Baso # (Auto) Abs Immat Gran (auto) Absolute Neuts (auto) Absolute Nucleated RBC Nucleated RBC % (auto) Smear Tech's Comments PT INR APTT D-Dimer High Sensitivty Sodium Potassium Chloride Carbon Dioxide Anion Gap BUN Creatinine Estim Creat Clear Calc Estimated GFR Random Glucose Calcium Magnesium 2.3 Total Bilirubin AST ALT Alkaline Phosphatase Troponin I High Sens B-Natriuretic Peptide Total Protein Albumin Triglycerides Cholesterol LDL Cholesterol, Calc HDL Cholesterol TSH Free T4 Urine Color Urine Appearance Urine pH Ur Specific [place] Urine Protein Urine Glucose (UA) Urine Ketones Urine Blood Urine Nitrite Ur Leukocyte Esterase Urine Test COVID-19 ([facility]) COVID-19 Clin [facility] Discharge Plan Discharge Anticipated Discharge Date/Time: 10/28/21 14:07 Patient Disposition: Home, Self-Care Discharge Diagnosis: AFIB with RVR Referrals: Tiffanie Borjas MD [Primary Care Provider] - 1 Week Discharge Medications: New flecainide 150 mg tablet 300 mg PO Q12H PRN (Reason: tachycardia) Qty: 20 0RF Rx Instructions: take within 30 minutes of experiencing palpitations and if palpitaions metoprolol succinate [Toprol XL] 25 mg tablet extended release 24 hr 25 mg PO DAILY Qty: 30 0RF Continued norgestimate-ethinyl estradiol [[place]Linyah] 0.25-35 mg-mcg tablet 1 tab PO DAILY 0RF cholecalciferol (vitamin D3) 1,250 mcg (50,000 unit) Tablet 1,250 mcg PO SA 0RF Discontinued Gilenya 0.5 mg capsule 1 cap PO DAILY 0RF methylprednisolone sodium succ 1,000 mg Recon Soln 1,000 mg IV [id number] 0RF Rx Instructions: daily for three days for MS flare: 3/, 3/3, 3/4 Discharge Orders: Discharge Order (Routine); Ordered 10/28/21 Ordered By: En Collazo Diet: advance to usual diet Activity on Discharge: As tolerated Stand Alone Forms: Patient Portal Discharge page Care Plan Goals: prevent rehospitalization for t[facility]cyardia Health Concerns: Atrial fibrilation Plan of Treatment: Take Flecained as recommended. Take 300 mg (2 pills) once feeling palpitaions and if doesn't go away in 30 to 60 minutes call 911 to go to emergency room, Cut back on her soda.? Follow up with Dr. Otoole's office for holter (heart monitor) --office will contact you Stop taking Gelenya and make an appointment to see Dr. Atwood next week Assessment: above Discharge Date/Time: 10/28/21 18:53
[2021-10-28] MEDS: Metoprolol Tartrate 25 MG TABLET PO (09:27)
--- NOTE | 2021-10-28 09:30 | CA_ITS ---
Transthoracic Echocardiogram Patient (Last, First, Middle): Diego Lazaro, Gender: Female Date of : 2000 Age: 21 Procedure Date: 10/28/2021 Procedure Type: Transthoracic [place] [facility] [place]: 160.02 cm Weight: 124.29 kg BSA: 2.21 m2 Heart Rate: bpm BP: 108 / 59 mmHg Manager Ent: VH/TO Referring MD: Jimi Juarez MD Symptoms: afib with rvr Study Quality: Fair ECG Rhythm: Sinus Conclusions: - Normal left ventricular size and systolic function. There is mildly increased left ventricular wall thickness. The visually estimated ejection fraction is between 60-65%. - Normal right ventricular cavity size and systolic function. Findings Left Ventricle Normal left ventricular size and systolic function. There is mildly increased left ventricular wall thickness. The visually estimated ejection fraction is between 60-65%. There is no evidence of regional wall motion abnormalities. Diastolic function is normal for age. Right Ventricle Normal right ventricular cavity size and systolic function. Atria Both atria are normal in size. Aortic Valve Normal aortic valve structure and function. There is no aortic valve stenosis. There is no aortic valve regurgitation. Mitral Valve Normal mitral valve structure and function. There is no mitral valve regurgitation. There is no mitral valve stenosis. Pulmonic Valve Normal pulmonic valve structure and function. There is trace pulmonic valve regurgitation. Tricuspid Valve Normal tricuspid valve structure and function. There is no tricuspid valve regurgitation. The right ventricular systolic pressure is 22 mmHg. Normal right atrial pressure. There is no evidence of pulmonary hypertension. Great Vessels All visible segments of the aorta are normal in size. The visualized portions of the pulmonary artery and branches are normal. Venous The inferior vena cava is normal in size and collapses greater than 50% with inspiration. Pericardium/Pleural There is no evidence of pericardial effusion. Prior Study Comparison No prior study available for comparison. Measurements 2D Linear Measurements IVSd: 1.03 0.6-0.9/0.6-1.0 cm LVIDd: 3.43 3.9-5.3/4.2-5.9 cm LVIDd Index: 1.55 2.4-3.2/2.2-3.1 cm/m2 LVIDs: 1.62 2.0-3.6 cm LVPWd: 1.02 0.7-1.1 cm LA Diam: 3.90 2.7-3.8/3.0-4.0 cm LAIDs Index: 1.76 1.5-2.3 cm/m2 LV Mass: 129.18 67-162/88-224 g LV Mass Index: 58.45 43-95/49-115 g/m2 LVOT Diam: 1.90 3.0+(-)1.3 cm Mitral Valve MV Pk E: 1.00 MV PK A: 0.60 MV Decel Time: 169.00 E/A: 1.70 E'Lateral: 12.50 E'Medial: 12.20 E/E' Med: 8.20 E/E' Lat: 8.00 PHT: 49.00 MVA PHT: 4.49 Decel [place]: 5.92 Aortic Valve AoV Pk Genaro: 1.71 AoV Mn Genaro: 1.09 AoV VTI: 0.37 AoV Pk Grad: 12.00 Aov Mn Grad: 6.00 DANYELL Cont.VTI: 2.19 LVOT LVOT Pk Genaro: 1.31 LVOT Mn [place]: 0.88 LVOT VTI: 0.29 LVOT Pk Grad: 7.00 LVOT Mn Grad: 4.00 LVOT Diam: 1.90 LVOT Area: 2.84 Diastolic Function MV Pk E: 1.00 MV Pk A: 0.60 E/A: 1.70 E'Medial: 12.20 E/E' Med: 8.20 E' Laterial: 12.50 E/E' Lat: 8.00 Right Ventricle TAPSE (mm): 28.60 Tricuspid Valve TR Pk Genaro: 2.18 TR Pk Grad: 19.00 RVSP: 22.00 Great Vessels Aorta Ao Asc: 2.70 2.1-3.4 cm Pulmonary Valve PV Pk Genaro: 1.03 Peak PV Grad: 4.00 Updated in Other Vendor System with Status of Final Fredi Otoole MD electronically signed on 10/28/2021 12:48:58 PM with status of Final
[2021-10-28] MEDS: methylPREDNISolone Sod Succ 1,000 MG in 0.9 % Sodium Chloride 50 ML 66 MG IV (11:04)
[2021-10-28 12:00] VITALS: BP 114/68; PULSE 90; RESP 18; O2SAT 95
--- NOTE | 2021-10-28 12:23 | PM.CNCAR ---
History of Present Illness History of Present Illness Date of Service: 10/28/21 Requesting physician: En Collazo Chief complaint: afib with rvr Narrative: 21-year-old female with history of multiple sclerosis diagnosed in 2016 who has been on fingolimod last 2 years. She recently had relapse of multiple sclerosis and was started on methylprednisolone 1000 mg IV for 3 days. She received a dose yesterday and started feeling palpitations, chest pains and vomiting. With these symptoms she called EMS and was found to be in AFib with RVR and was brought to the emergency department. She was given Cardizem boluses which improved her heart rate but she continued to state atrial fibrillation. After that she was given beta-mireya 25 mg twice a day and it appears she broke out of atrial fibrillation. Been doing well since then. She has no symptoms right now. She had palpitations. Sleepy and was told she had supraventricular tachycardia. She does not smoke or drink. She drinks soda and up to 4 cans a day. No energy drinks. She was drinking can of Pepsi and eating some chicken when she developed these symptoms. She does not have any diagnosed sleep apnea at this point but is overweight. [facility] Past Medical History Medical History Multiple sclerosis PCOS (polycystic ovarian syndrome) SVT (supraventricular tachycardia) Social History Social History Household Members: Significant Other Housing: Apartment Patient Tobacco Use Status: Never used Tobacco Use of substances other than those prescribed or required for medical reasons: No Currently Displaying Signs/Symptoms of Drug Intoxication Withdrawal: No Have you been hit, kicked, punched, or otherwise hurt by someone within the past year? If so, by whom?: No Do you feel safe in your current relationship?: Yes Is there a partner from a previous relationship who is making you feel unsafe now?: No Are you made to feel afraid or neglected: No Advance Directives: No Advance Directives Information Provided: No Do you have thoughts of harming others: None Do you have a plan to hurt others: No Plan Recently lost weight without trying: No Meds Allergies Allergy/AdvReac Type Severity Reaction Status Date / Time glatiramer (copolymer 1) Allergy Intermediate SHORTNESS Verified 10/27/21 16:05 [From COPAXONE] OF BREATH Active Medications: Current Medications Acetaminophen (Acetaminophen 325 Mg Tablet) 650 mg PO Q6H PRN PRN Reason: Pain, Mild (Pain Scale 1-3) Enoxaparin Sodium (Enoxaparin Sodium 40 Mg/0.4 Ml Syringe) 40 mg SUBCUT Q24H [facility] Last Admin: 10/27/21 20:16 Dose: 40 mg Documented by: Diltiazem HCl 125 mg/ Sodium (Chloride) 125 mls @ 0 mls/hr IVCONT .Q0M [facility]; Protocol Last Titration: 10/28/21 08:31 Dose: Infused Documented by: Melatonin (Melatonin 3 Mg Tablet) 6 mg PO BEDTIME PRN PRN Reason: Insomnia Metoprolol Tartrate (Metoprolol Tartrate 25 Mg Tablet) 25 mg PO BID [facility]; Protocol Last Admin: 10/28/21 09:27 Dose: 25 mg Documented by: Non-Formulary Medication (Cholecalciferol (Vitamin D3)) 1,250 mcg PO [facility] Patient Own Med ( Fingolimod [Gilenya] 0.5 Mg Capsule) 1 each PO DAILY [facility] Last Admin: 10/28/21 09:28 Dose: 1 each Documented by: Patient Own Med ( [place] Linyah 0.25mg-0 .035mg) 1 each PO DAILY [facility] Last Admin: 10/28/21 09:29 Dose: 1 each Documented by: Pharmacy Consult (Consult Rx Perform Med Rec) 1 each MISCELLANE ONCE PRN PRN Reason: Consult order Senna (Sennosides 8.6 Mg Tablet) 17.2 mg PO BEDTIME PRN PRN Reason: Constipation Sodium Chloride (0.9 % Sodium Chloride Flush 3 Ml Syringe) 3 ml IVFLUSH QSHIFT [facility] Last Admin: 10/28/21 08:46 Dose: 3 ml Documented by: Home Medications Medication Instructions Recorded Confirmed Last Taken Type cholecalciferol (vitamin D3) 1,250 1,250 mcg PO SA 10/27/21 10/27/21 10/22/21 History mcg (50,000 unit) tablet fingolimod 0.5 mg capsule (Gilenya) 1 cap PO DAILY 10/27/21 10/27/21 10/27/21 History methylprednisolone sodium succ 1,000 mg IV [id number] 0310/27/21 10/27/21 History 1,000 mg intravenous solution norgestimate 0.25 mg-ethinyl 1 tab PO DAILY 10/27/21 10/27/21 10/27/21 History estradiol 35 mcg tablet (York-Linyah) Physical Exam Vital Signs: Vital Signs: Last Vital Signs Temp 99.3 F 10/28/21 08:00 Pulse 82 10/28/21 08:00 Resp 18 10/28/21 08:00 BP 119/53 L 10/28/21 08:00 Pulse Ox 97 10/28/21 08:00 BMI result Body Mass Index 48.6 GENERAL APPEARANCE: in no acute distress, pleasant. NECK: no carotid bruit, no jugular venous distention. SKIN: no suspicious lesions, warm and dry. HEART: no murmurs, regular rate and rhythm. LUNGS: clear to auscultation bilaterally. ABDOMEN: soft, nontender. EXTREMITIES: no edema. PERIPHERAL PULSES: equal. NEUROLOGIC: No gross deficits, AAO X 3 Objective Labs and Meds Result diagrams: 10/28/21 06:12 10/27/21 16:41 Lab results: Laboratory Results - last 24 hr 10/27/21 10/27/21 10/27/21 16:22 16:22 16:41 WBC RBC Hgb Hct MCV MCH MCHC RDW Plt Count MPV Immature Gran % (Auto) Neut % (Auto) Lymph % (Auto) [place] % (Auto) Eos % (Auto) Baso % (Auto) Lymph # (Auto) [place] # (Auto) Eos # (Auto) Baso # (Auto) Abs Immat Gran (auto) Absolute Neuts (auto) Absolute Nucleated RBC Nucleated RBC % (auto) Smear Tech's Comments PT 10.3 INR 0.9 APTT 25.6 D-Dimer High Sensitivty < 150 Sodium 141 Potassium 4.7 Chloride 108 Carbon Dioxide 22 Anion Gap 16 BUN 11 Creatinine 0.84 Estim Creat Clear Calc 136.6 Estimated GFR > 60 Random Glucose 201 H Calcium 10.1 Magnesium Total Bilirubin 0.4 AST 14 ALT 24 Alkaline Phosphatase 62 Troponin I High Sens B-Natriuretic Peptide Total Protein 7.6 Albumin 4.5 Triglycerides Cholesterol LDL Cholesterol, Calc HDL Cholesterol TSH 0.20 L Free T4 0.88 Urine Color Urine Appearance Urine pH Ur Specific [place] Urine Protein Urine Glucose (UA) Urine Ketones Urine Blood Urine Nitrite Ur Leukocyte Esterase Urine Test COVID-19 ([facility]) COVID-19 Clin Com 10/27/21 10/27/21 10/27/21 16:41 16:41 17:15 WBC 20.8 H RBC 4.87 Hgb 14.5 Hct 43.4 MCV 89.1 MCH 29.8 MCHC 33.4 RDW 12.3 Plt Count 453 H MPV 9.8 Immature Gran % (Auto) 0.7 H Neut % (Auto) 94.3 H Lymph % (Auto) 2.6 L [place] % (Auto) 2.2 Eos % (Auto) 0.0 Baso % (Auto) 0.2 Lymph # (Auto) 0.6 L [place] # (Auto) 0.5 Eos # (Auto) 0.0 Baso # (Auto) 0.0 Abs Immat Gran (auto) 0.14 H Absolute Neuts (auto) 19.7 H Absolute Nucleated RBC 0.000 Nucleated RBC % (auto) 0.0 Smear Tech's Comments VERIFIED PT INR APTT D-Dimer High Sensitivty Sodium Potassium Chloride Carbon Dioxide Anion Gap BUN Creatinine Estim Creat Clear Calc Estimated GFR Random Glucose Calcium Magnesium Total Bilirubin AST ALT Alkaline Phosphatase Troponin I High Sens 65.6 H* B-Natriuretic Peptide 77 Cancelled Total Protein Albumin Triglycerides Cholesterol LDL Cholesterol, Calc HDL Cholesterol TSH Free T4 Urine Color Urine Appearance Urine pH Ur Specific [place] Urine Protein Urine Glucose (UA) Urine Ketones Urine Blood Urine Nitrite Ur Leukocyte Esterase Urine Test COVID-19 ([facility]) COVID-19 Clin Com 10/27/21 10/27/21 10/27/21 18:06 18:06 18:06 WBC RBC Hgb Hct MCV MCH MCHC RDW Plt Count MPV Immature Gran % (Auto) Neut % (Auto) Lymph % (Auto) [place] % (Auto) Eos % (Auto) Baso % (Auto) Lymph # (Auto) [place] # (Auto) Eos # (Auto) Baso # (Auto) Abs Immat Gran (auto) Absolute Neuts (auto) Absolute Nucleated RBC Nucleated RBC % (auto) Smear Tech's Comments PT INR APTT D-Dimer High Sensitivty Sodium Potassium Chloride Carbon Dioxide Anion Gap BUN Creatinine Estim Creat Clear Calc Estimated GFR Random Glucose Calcium Magnesium Total Bilirubin AST ALT Alkaline Phosphatase Troponin I High Sens B-Natriuretic Peptide Total Protein Albumin Triglycerides Cholesterol LDL Cholesterol, Calc HDL Cholesterol TSH Free T4 Urine Color YELLOW Urine Appearance CLEAR Urine pH 6.0 Ur Specific [place] 1.020 Urine Protein NEG Urine Glucose (UA) 100 H Urine Ketones 5 Urine Blood NEG Urine Nitrite NEG Ur Leukocyte Esterase NEG Urine Test NEGATIVE COVID-19 ([facility]) Negative COVID-19 Clin Com See Note 10/27/21 10/28/21 10/28/21 20:07 06:12 06:12 WBC 19.7 H RBC 4.54 Hgb 13.4 Hct 41.5 MCV 91.4 MCH 29.5 MCHC 32.3 RDW 12.4 Plt Count 392 MPV 10.7 Immature Gran % (Auto) 0.7 H Neut % (Auto) 91.5 H Lymph % (Auto) 3.1 L [place] % (Auto) 4.6 Eos % (Auto) 0.0 Baso % (Auto) 0.1 Lymph # (Auto) 0.6 L [place] # (Auto) 0.9 Eos # (Auto) 0.0 Baso # (Auto) 0.0 Abs Immat Gran (auto) 0.14 H Absolute Neuts (auto) 18.0 H Absolute Nucleated RBC 0.000 Nucleated RBC % (auto) 0.0 Smear Tech's Comments VERIFIED PT INR APTT D-Dimer High Sensitivty Sodium Potassium Chloride Carbon Dioxide Anion Gap BUN Creatinine Estim Creat Clear Calc Estimated GFR Random Glucose Calcium Magnesium Total Bilirubin AST ALT Alkaline Phosphatase Troponin I High Sens 93.8 H* B-Natriuretic Peptide Total Protein Albumin Triglycerides 89 Cholesterol 242 LDL Cholesterol, Calc 177 HDL Cholesterol 48 TSH Free T4 Urine Color Urine Appearance Urine pH Ur Specific [place] Urine Protein Urine Glucose (UA) Urine Ketones Urine Blood Urine Nitrite Ur Leukocyte Esterase Urine Test COVID-19 ([facility]) COVID-19 Clin Com 10/28/21 06:12 WBC RBC Hgb Hct MCV MCH MCHC RDW Plt Count MPV Immature Gran % (Auto) Neut % (Auto) Lymph % (Auto) [place] % (Auto) Eos % (Auto) Baso % (Auto) Lymph # (Auto) [place] # (Auto) Eos # (Auto) Baso # (Auto) Abs Immat Gran (auto) Absolute Neuts (auto) Absolute Nucleated RBC Nucleated RBC % (auto) Smear Tech's Comments PT INR APTT D-Dimer High Sensitivty Sodium Potassium Chloride Carbon Dioxide Anion Gap BUN Creatinine Estim Creat Clear Calc Estimated GFR Random Glucose Calcium Magnesium 2.3 Total Bilirubin AST ALT Alkaline Phosphatase Troponin I High Sens B-Natriuretic Peptide Total Protein Albumin Triglycerides Cholesterol LDL Cholesterol, Calc HDL Cholesterol TSH Free T4 Urine Color Urine Appearance Urine pH Ur Specific [place] Urine Protein Urine Glucose (UA) Urine Ketones Urine Blood Urine Nitrite Ur Leukocyte Esterase Urine Test COVID-19 ([facility]) COVID-19 Clin Com Imaging Radiologist's impression: Impressions Chest X-Ray 10/27/21 17:30 IMPRESSION: Unremarkable chest examination. Assessment and Plan (1) Atrial fibrillation with rapid ventricular response: Status: Acute Plan Pleasant 21-year-old female who has multiple sclerosis since 2016 presenting for palpitations and chest pain and was noted to be in AFib with RVR. She since then has reverted back to sinus rhythm. Chads Vasc score is 0 and she require anticoagulation at this stage. I will review the echocardiogram to see if there is any regional wall motion abnormalities or cardiomyopathy. If she does not have any structure issues then I think flecainide 300 mg as needed, as pill in the pocket approach may be 1 option for this young female. Decrease the metoprolol to Toprol-XL 25 mg once a day because fingolimod has some reported bradycardia in the past. The etiology /trigger of her atrial fibrillation is unclear. Fingolimod has been reported with episode of atrial fibrillation in 1 case report after starting fingolimod in a patient with multiple sclerosis. She has been taking his medication for 2 years and there is no clear tachycardia reported otherwise. There is some bradycardia reported before with Fingolimod. I really doubt that fingolimod is the cause for her atrial fibrillation. She does drink a lot of soda and caffeine intake is associated with arrhythmia and thiscould be the reason for AFib. She previously had SVT after drinking soda and yesterday again she was drinking Pepsi. I think she needs to cut back on her soda. Also she will need outpatient sleep study. We will do of 14 day Holter monitor on her to make sure she does not have recurrent atrial fibrillation. Thank you for allowing me to participate in the care of your patient. Please feel free to contact me if you have any questions. Procedures Date of Service Date of Service: 10/28/21
--- NOTE | 2021-10-28 14:46 | P.CNNE_ITS ---
History of Present Illness Data of Consult Service Date: 10/28/21 Primary Care Provider: Tiffanie Rodriguez MD [facility] Reason for consult: Multiple sclerosis 21 years old woman with remitting relapsing multiple sclerosis who I initially side 2014 when she had right eye blurred vision. Her MRI of brain revealed mu ltiple lesions suggestive of multiple sclerosis. MRI of cervical spine also revealed lesions. CSF did not reveal oligoclonal bands. In 2015 she was on Copaxone when she stopped coming to my office. She started seeing a pediatric neurologist at [facility] and was switched to Tecfidera. For some reason this medicine was changed to Gilenya in 2018. She called my office few days ago stating that she was having MS exacerbation type of symptoms and she was prescribed 3 days of IV Solu-Medrol as an outpatient. In hospital she was noted to have atrial fibrillation and was treated with flecainide. She also has received 3 days of Solu-Medrol. Now she was feeling better. Review of Systems Review of Systems: No recent cold or flu-like illness PMFSH Past Medical History Medical History Multiple sclerosis PCOS (polycystic ovarian syndrome) SVT (supraventricular tachycardia) Social History Social History Household Members: Significant Other Housing: Apartment Patient Tobacco Use Status: Never used Tobacco Use of substances other than those prescribed or required for medical reasons: No Currently Displaying Signs/Symptoms of Drug Intoxication Withdrawal: No Have you been hit, kicked, punched, or otherwise hurt by someone within the past year? If so, by whom?: No Do you feel safe in your current relationship?: Yes Is there a partner from a previous relationship who is making you feel unsafe now?: No Are you made to feel afraid or neglected: No Advance Directives: No Advance Directives Information Provided: No Do you have thoughts of harming others: None Do you have a plan to hurt others: No Plan Recently lost weight without trying: No Meds Allergies Allergy/AdvReac Type Severity Reaction Status Date / Time glatiramer (copolymer 1) Allergy Intermediate SHORTNESS Verified 10/27/21 16:05 [From COPAXONE] OF BREATH Active Medications: Current Medications Acetaminophen (Acetaminophen 325 Mg Tablet) 650 mg PO Q6H PRN PRN Reason: Pain, Mild (Pain Scale 1-3) Enoxaparin Sodium (Enoxaparin Sodium 40 Mg/0.4 Ml Syringe) 40 mg SUBCUT Q24H [facility] Last Admin: 10/27/21 20:16 Dose: 40 mg Documented by: Diltiazem HCl 125 mg/ Sodium (Chloride) 125 mls @ 0 mls/hr IVCONT .Q0M [facility]; Protocol Last Titration: 10/28/21 08:31 Dose: Infused Documented by: Melatonin (Melatonin 3 Mg Tablet) 6 mg PO BEDTIME PRN PRN Reason: Insomnia Metoprolol Tartrate (Metoprolol Tartrate 25 Mg Tablet) 25 mg PO BID [facility]; Protocol Last Admin: 10/28/21 09:27 Dose: 25 mg Documented by: Non-Formulary Medication (Cholecalciferol (Vitamin D3)) 1,250 mcg PO [facility] Patient Own Med ( Fingolimod [Gilenya] 0.5 Mg Capsule) 1 each PO DAILY [facility] Last Admin: 10/28/21 09:28 Dose: 1 each Documented by: Patient Own Med ( [place] Linyah 0.25mg-0 .035mg) 1 each PO DAILY [facility] Last Admin: 10/28/21 09:29 Dose: 1 each Documented by: Pharmacy Consult (Consult Rx Perform Med Rec) 1 each MISCELLANE ONCE PRN PRN Reason: Consult order Senna (Sennosides 8.6 Mg Tablet) 17.2 mg PO BEDTIME PRN PRN Reason: Constipation Sodium Chloride (0.9 % Sodium Chloride Flush 3 Ml Syringe) 3 ml IVFLUSH QSHIFT [facility] Last Admin: 10/28/21 08:46 Dose: 3 ml Documented by: Home Medications Medication Instructions Recorded Confirmed Last Taken Type cholecalciferol (vitamin D3) 1,250 1,250 mcg PO SA 10/27/21 10/27/21 10/22/21 History mcg (50,000 unit) tablet fingolimod 0.5 mg capsule (Gilenya) 1 cap PO DAILY 10/27/21 10/27/21 10/27/21 History methylprednisolone sodium succ 1,000 mg IV [id number] 10/27/21 10/27/21 10/27/21 History 1,000 mg intravenous solution norgestimate 0.25 mg-ethinyl 1 tab PO DAILY 10/27/21 10/27/21 10/27/21 History estradiol 35 mcg tablet (Cole-Linyah) Physical Exam Vital Signs: Vital Signs: Last Vital Signs Temp 99.3 F 10/28/21 08:00 Pulse 90 10/28/21 12:00 Resp 18 10/28/21 12:00 BP 114/68 10/28/21 12:00 Pulse Ox 95 10/28/21 12:00 BMI result Body Mass Index 48.6 Neuro: Other: Alert and awake with normal spontaneity of speech fluency comprehension and affect. There was no focal abnormality or tremor. Results Labs CBC & Chem 7: 10/28/21 06:12 10/27/21 16:41 Labs: Short CBC 10/27/21 10/28/21 Range/Units 17:15 06:12 WBC 20.8 H 19.7 H (4.8-10.8) X10*3/uL Hgb 14.5 13.4 (12.0-16.0) g/dl Hct 43.4 41.5 (37.0-47.0) % Plt Count 453 H 392 (160-400) X10*3/uL BMP 10/27/21 16:41 Sodium 141 Potassium 4.7 Chloride 108 Carbon Dioxide 22 BUN 11 Creatinine 0.84 Calcium 10.1 Liver Function 10/27/21 Range/Units 16:41 Total Bilirubin 0.4 (0.0-1.0) mg/dL AST 14 (5-31) U/L ALT 24 (0-31) U/L Alkaline Phosphatase 62 (39-117) U/L Albumin 4.5 (3.5-5.0) g/dL Urine 10/27/21 Range/Units 18:06 Urine Color YELLOW Urine Appearance CLEAR Urine pH 6.0 (5.0-8.0) Ur Specific [place] 1.020 (1.005-1.025) Urine Protein NEG (NEG-TRACE) MG/DL Urine Glucose (UA) 100 H (NEG) MG/DL Assessment and Plan (1) Multiple sclerosis: Status: Acute Young woman with multiple sclerosis treated with a medicine that potentially has cardiac side effects. At this time I have asked her to stop Gilenya and see me next week in office to discuss further management of MS. Otherwise she can be discharged as far as neurological issues are concerned Procedures Date of Service Date of Service: 10/28/21
[2021-10-28 14:52] VITALS: BP 105/50; PULSE 93; RESP 20; TEMP 36.6; O2SAT 97
--- NOTE | 2021-10-29 09:55 | MHC.CM.PN ---
CM MET WITH PT ON 10/28/21. PT REPORTS SHE LIVES WITH HER S/O AND HER MOTHER LIVES UPSTAIRS FROM THEM SHE REPORTS SHE IS INDEPENDENT WITH CARE, WORKS AND DRIVES PT DENIES USE OF DME PT CONFIRMS HER PCP IS ELMO GREENBERG PT COMPLETED A HCP NAMING HER MOTHER, CRYSTAL NICK ([phone]) AND AUNT ALICIA ARROYO ([phone]) HER PRIMARY AND ALTERNATE AGENTS RESPECTIVELY PT REPORTS SHE IS FULLY VACCINATED AGAINST COVID-19 WITH PFIZER AND RECEIVED THE BOOSTER 10/06/21 PT DISCHARGED ON 10/28/21, HOME WITH NO SERVICES FAMILY PROVIDED TRANSPORTATION
== END 2021-10-28 18:53 | disposition home or self-care (01) | DRG 201 ==
LOC: HO.ED 18:37 → HO.EDOVER 19:22 → HO.IMC 22:31
PROVIDERS: Nurse Practitioner Family; Admitting Provider Hospitalist; Emergency Provider Emergency Medicine Emergency Medical Services; PCP Internal Medicine; Visit Provider Internal Medicine
DX: I48.91 Unspecified atrial fibrillation (principal); D72.829 Elevated white blood cell count, unspecified; E03.9 Hypothyroidism, unspecified; T38.0X5A Adverse effect of glucocorticoids and synthetic analogues, initial encounter; E28.2 Polycystic ovarian syndrome; G35 Multiple sclerosis; E66.01 Morbid (severe) obesity due to excess calories; Z68.42 Body mass index [BMI] 45.0-49.9, adult; Z79.899 Other long term (current) drug therapy
CPT/HCPCS: 36415; 71046; 80053; 80061; 81003; 81025; 83735; 83880; 84439; 84443; 84484; 85025; 85379; 85610; 85730; 87635; 93005; 93306; 96361; 96365; 96375; 96376; 99285; J1650; J2930

== ENCOUNTER 2021-11-01 13:25 | Outpatient (REF) | payer OTHER, MEDICAID, SELFPAY ==
[2021-11-02 08:46] LABS: Triiodothyronine T3 Free 4.2 pg/mL (2.3-4.2); Triiodothyronine T3 Total 126 ng/dL (76-181)
== END 2021-11-01 13:26 | disposition home or self-care (01) ==
LOC: HO.LAB 13:25
PROVIDERS: PCP Internal Medicine; Referring Provider Internal Medicine; Visit Provider Internal Medicine Cardiovascular Disease
DX: I48.0 Paroxysmal atrial fibrillation (principal); I47.1 Supraventricular tachycardia; R79.89 Other specified abnormal findings of blood chemistry
CPT/HCPCS: 36415; 84480; 84481; 93005

== ENCOUNTER → 2021-12-05 13:30 | Outpatient (REF) | payer OTHER, MEDICAID, SELFPAY | LOC: HO.SL 13:30 | PROVIDERS: PCP Internal Medicine; Visit Provider Internal Medicine Cardiovascular Disease | DX: G47.10 Hypersomnia, unspecified (principal) | CPT/HCPCS: 95806 ==

== ENCOUNTER 2021-12-15 18:35 | Outpatient (REF) | payer OTHER, MEDICAID, SELFPAY ==
--- NOTE | ~2021-12-15 | MR_ITS ---
MR BRAIN WITHOUT AND WITH CONTRAST CLINICAL INFORMATION: Relapsing remitting multiple sclerosis. COMPARISON: Brain MRI August 13, 2015. TECHNIQUE: Multiplanar, multisequence MRI of the brain was obtained before and after the intravenous administration of 10 mL of Gadavist. FINDINGS: Interval development of several new T2 signal hyperintense lesions within the right temporal subcortical white matter as well as the periventricular white matter bilaterally. Remaining pattern lesional burden throughout the supratentorial periventricular and subcortical white matter as well as the corpus callosum is unchanged in comparison to the prior study. There are no enhancing lesions to suggest active demyelination. There is no hydrocephalus, extra-axial surface collection, or herniation. The major flow voids at the skull base are preserved. There is no acute infarct on diffusion-weighted imaging. There is no intracranial hemorrhage on the gradient recalled echo acquisition. The midline structures are normal. The cerebellar tonsils are normally positioned. The craniocervical junction is normal. Osseous marrow signal intensity is homogenous. The visualized soft tissues are unremarkable. MR/MR head/brain wo/w con IMPRESSION: Interval development of several new T2 signal hyperintense lesions within the right temporal subcortical white matter as well as the periventricular white matter bilaterally. Otherwise stable pattern lesional burden within the supratentorial white matter in keeping with the clinical history of multiple sclerosis. There are no enhancing lesions to suggest active demyelination.
== END 2021-12-15 18:36 | disposition home or self-care (01) ==
LOC: HO.MRI 18:35
PROVIDERS: Visit Provider Psychiatry & Neurology Neurology
DX: G35 Multiple sclerosis (principal)
CPT/HCPCS: 70553; A9585

== ENCOUNTER → 2021-12-22 13:32 | Outpatient (BNVA) | payer OTHER, MEDICAID, SELFPAY | PROVIDERS: PCP Internal Medicine; Referring Provider Internal Medicine; Visit Provider Internal Medicine Cardiovascular Disease | DX: Z13.89 Encounter for screening for other disorder (principal) ==

== ENCOUNTER 2021-12-26 11:41 | Emergency (ER) | payer OTHER, MEDICAID, SELFPAY ==
--- NOTE | ~2021-12-26 | US_ITS ---
EXAMINATION: US PELVIS CLINICAL INFORMATION: Menorrhagia COMPARISON: None TECHNIQUE: Ultrasound of the pelvis is performed using both transabdominal and transvaginal transducers along with Doppler. Transvaginal imaging is performed due to inadequate visualization transabdominally. FINDINGS: Uterus: The uterus is anteverted and measures 8.1 x 3.9 x 4.9 cm. The double wall endometrial thickness is 12 mm. The uterus is smooth in contour and has normal myometrial echogenicity. No visible fibroid. Adnexa: Both ovaries are visualized. There is normal color flow to the adnexa. There is no ovarian torsion. There is no pelvic ascites or fluid collection. Right ovary measures 4.1 x 2.1 x 2.2 cm. Left ovary measures 3.4 x 2.2 x 2.9 cm. There is a 1.7 cm follicle within the left ovary US/US pelvic and transvaginal IMPRESSION: Unremarkable sonographic appearance of the pelvic viscera.
[2021-12-26 13:02] VITALS: BP 120/79; PULSE 102; RESP 16; TEMP 36.6; O2SAT 99; BMI 47.5
[2021-12-26 14:41] LABS: MANUAL DIFF FLAG NO
[2021-12-26 14:49] LABS: Basophils Percent Auto 0.5 % (0-2); Eosinophils Absolute Auto 0.4 X10*3/uL (0.0-0.4); Eosinophils Percent Auto 4.4 % (0-4); Hematocrit 41.5 % (37.0-47.0); Hemoglobin 13.7 g/dl (12.0-16.0); Imm Gran Abs Auto 0.01 X10*3/uL (0.00-0.03); Imm Gran Pct Auto 0.1 % (0.0-0.4); Lymphocytes Absolute Auto 2.2 X10*3/uL (1.2-4.9); Lymphocytes Percent Auto 26.6 % (20-40); Mean Corpuscular Hemoglobin 29.3 pg (27.0-33.0); Mean Corpuscular Volume 88.7 fL (80.0-98.0); Mean Platelet Volume 9.7 fL (9.4-12.3); Monocytes Absolute Auto 0.6 X10*3/uL (0.1-1.2); Monocytes Percent Auto 6.8 % (2-11); Neutrophils Absolute Auto 5.1 x10*3/uL (2.0-8.3); Neutrophils Percent Auto 61.6 % (45-73); Platelet Count 433 X10*3/uL (160-400); Red Blood Count 4.68 X10*6/uL (4.20-5.50); Red Cell Distribution Width 12.2 % (11.0-16.0); White Blood Count 8.2 X10*3/uL (4.8-10.8)
[2021-12-26 14:53] VITALS: BP 115/87; PULSE 83; RESP 16; O2SAT 98
--- NOTE | 2021-12-26 14:56 | PC.NURSE ---
Pt reports vaginal bleeding since last sunday with clotting. Using sanitary pads q 1/2 hr to 1 hour. VSS. Pt on Xarelto for h/o A fib. Skin is pink warm and dry. Pt denies dizziness or SOB or fatigue. Speech is clear. [employer] to bedside for eval. Plan for ultrasound
[2021-12-26 15:06] LABS: Anion Gap 9 (12-20); Blood Urea Nitrogen 8 mg/dL (9-16); Calcium 10.1 mg/dL (8.4-10.2); Carbon Dioxide 26 mmol/L (22-29); Chloride 107 mmol/L (96-108); Creatinine Clr Calc Pharmacy 174.3; Estimated Glomerular Filt Rate > 60; Glucose Random 98 mg/dL (60-115); Potassium 4.1 mmol/L (3.3-5.1); Sodium 138 mmol/L (135-145)
--- NOTE | 2021-12-26 15:07 | ED_ITS ---
HPI - Female Genitourinary General Chief complaint: Vaginal Bleeding Stated complaint: vag bleed Time Seen by Provider: 12/26/21 14:36 Source: patient Mode of arrival: ambulatory Limitations: no limitations History of Present Illness HPI Narrative: Patient presents to the emergency department for evaluation of heavy menstrual bleeding. Two months ago she was started on Xarelto given her history of atrial fibrillation. Last month have normal menses. Current menstrual period began 12/21/2021 6 days ago, reportedly on time. Over past 2-3 days she has noticed an increase in the heaviness of her menstrual bleeding and presence of clots. This morning she reports going through super tampon every 30 minutes to 1 hour, and regular sanitary pads in addition. Both of which she reports are saturated and filled with large blood clots when she is changing them. She denies headaches, dizziness, lightheadedness, chest pain, palpitations, shortness of breath, difficulty breathing, abdominal pain, pelvic pain, nausea, vomiting, dysuria, urinary frequency, prior abnormal vaginal discharge, concern for sexually t ransmitted infections, denies possibility of as her current sexual partner is a male who is ?sterile?. Related Data Home Medications Medication Instructions Recorded Confirmed cholecalciferol (vitamin D3) 1,250 1,250 mcg PO SA 10/27/21 11/01/21 mcg (50,000 unit) tablet norgestimate 0.25 mg-ethinyl 1 tab PO DAILY 10/27/21 11/01/21 estradiol 35 mcg tablet (Greenbrier-Linyah) flecainide 150 mg tablet 150 mg PO BID PRN 11/01/21 11/01/21 Previous Rx's Medication Instructions Recorded rivaroxaban 20 mg tablet (Xarelto) 20 mg PO DAILY #30 tab 11/01/21 metoprolol succinate 25 mg 25 mg PO DAILY #30 tab 12/22/21 tablet,extended release 24 hr (Toprol XL) Allergies Allergy/AdvReac Type Severity Reaction Status Date / Time glatiramer (copolymer 1) Allergy Intermediate SHORTNESS Verified 10/27/21 16:05 [From COPAXONE] OF BREATH Review of Systems Review of Systems: Constitutional : No Fever, No Chills ENT/Mouth : No sore throat, No Rhinorrhea Eyes: No Eye Pain, No Redness Cardiovascular : No Chest Pain, No SOB Respiratory : No Cough, No Sputum, No Wheezing Gastrointestinal : No Nausea, No Vomiting, No Diarrhea, no abdominal pain, Genitourinary : positive irregular bleeding, No Dysuria, No Urinary Frequency, no pelvic pain Musculoskeletal : No Myalgias Skin : No rash Neuro : No Weakness, No Headache Psych : No Anxiety/Panic, No Depression Heme/Lymph: No bruising, No Lymphadenopathy Endocrine : No Polyuria, No Polydipsia Yes all other systems are reviewed and are negative [facility] Past Medical History Attestation statement: The following information was validated with the patient. Source: old records reviewed Medical History Atrial fibrillation with rapid ventricular response Hyperthyroidism Multiple sclerosis Multiple sclerosis Paroxysmal atrial fibrillation PCOS (polycystic ovarian syndrome) SVT (supraventricular tachycardia) Social History Social History Household Members: Significant Other Housing: Apartment Patient Tobacco Use Status: Never used Tobacco Use of substances other than those prescribed or required for medical reasons: No Advance Directives: No Advance Directives Information Provided: No Patient : No service: No Current occupational status: employed Physical Exam Vital Signs: Vital Signs: Last Vital Signs Temp 97.9 F 12/26/21 15:52 Pulse 92 12/26/21 15:52 Resp 18 12/26/21 15:52 BP 140/68 H 12/26/21 15:52 Pulse Ox 95 12/26/21 15:52 BMI result Body Mass Index 47.5 Vital signs have been reviewed as normal and appeared to be correct. Blood pressure normal.? Heart rate normal.? Respiration rate normal. Temperature normal.? Oxygen saturation normal. Appearance: Alert.?Oriented to person, place and time. No acute distress.?Normal affect. Eyes: Pupils equal, round and reactive to light.? ENT: Pharynx normal.?? Neck: Normal inspection.? Neck supple.?? CVS: Heart sounds normal. Normal heart rate and rhythm.? Pulses normal.?? Respiratory: No respiratory distress.? Lung sounds clear to auscultation bilaterally?? Abdomen: Soft and non-tender. Normoactive bowel sounds. Genitourinary: Declines pelvic examination? Skin: Skin warm and dry.? Normal skin color.? Extremities: No lower extremity edema.? No calf ttp? Neuro: Moves all extremities spontaneously. Sensation intact bilaterally. CN II- XII intact. No focal neuro deficits. Ambulates with normal steady gait. Course Course Course Narrative: Patient is a 21-year-old female with a past medical history of SVT, paroxysmal atrial fibrillation, on Xarelto, hyperthyroidism, multiple sclerosis, PCOS. She presents emergency department for evaluation of heavy menstrual bleeding with presence of clots. Has no additional symptoms at this time. Will obtain basic labs including CBC, BMP, urinalysis to exclude infection, urine in addition to pelvic ultrasound to further evaluate for possible causes of heavy menstrual bleeding. Patient will likely require repeat CBC to assess for stability of blood count. Explained this to patient. She is agreeable with plan of care. Disposition will be pending results Reevaluation(s) Reevaluation #1: CBC is overall unremarkable, current hemoglobin and hematocrit 13.7 and 41.5, mild thrombocytosis platelet count 433 consistent with prior level the october 2021. BMP overall unremarkable. Urine test is negative, no acute findings of urinary tract infection. Pelvic ultrasound is unremarkable no acute findings. Will obtain repeat CBC and H&H is stable will plan for discharge home. Time: 16:39 Reevaluation #2: Repeat hemoglobin 12.9 hematocrit 39.1. Discussed this case with ED attending Dr. De La O, discussed plan of care for patient to hold Xarelto tonight and for next 1-2 days until bleeding stops and then resume. Patient to follow-up with primary care provider within 1-3 days. Discussed reasons to return to the emergency department. All questions were answered. Time: 17:21 [facility] - Female Genitourinary Medical Records Attestation: I reviewed the patient's medical records. Lab Data Attestation: I reviewed the patient's lab results. Result diagrams: 12/26/21 16:46 12/26/21 14:36 Labs: Lab Results 12/26/21 12/26/21 12/26/21 Range/Units 14:36 14:36 15:06 WBC 8.2 (4.8-10.8) X10*3/uL RBC 4.68 (4.20-5.50) X10*6/uL Hgb 13.7 (12.0-16.0) g/dl Hct 41.5 (37.0-47.0) % MCV 88.7 (80.0-98.0) fL MCH 29.3 (27.0-33.0) pg MCHC 33.0 (31.0-35.0) g/dl RDW 12.2 (11.0-16.0) % Plt Count 433 H (160-400) X10*3/uL MPV 9.7 (9.4-12.3) fL Immature Gran % (Auto) 0.1 (0.0-0.4) % Neut % (Auto) 61.6 (45-73) % Lymph % (Auto) 26.6 (20-40) % Green[place]rier % (Auto) 6.8 (2-11) % Eos % (Auto) 4.4 H (0-4) % Baso % (Auto) 0.5 (0-2) % Lymph # (Auto) 2.2 (1.2-4.9) X10*3/uL [place] # (Auto) 0.6 (0.1-1.2) X10*3/uL Eos # (Auto) 0.4 (0.0-0.4) X10*3/uL Baso # (Auto) 0.0 (0.0-0.2) X10*3/uL Abs Immat Gran (auto) 0.01 (0.00-0.03) X10*3/uL Absolute Neuts (auto) 5.1 (2.0-8.3) x10*3/uL Absolute Nucleated RBC 0.000 (0.0-0.012) X10*3/uL Nucleated RBC % (auto) 0.0 (0.0-0.2) /100WBC Sodium 138 (135-145) mmol/L Potassium 4.1 (3.3-5.1) mmol/L Chloride 107 (96-108) mmol/L Carbon Dioxide 26 (22-29) mmol/L Anion Gap 9 L (12-20) BUN 8 L (9-16) mg/dL Creatinine 0.64 (0.5-1.4) mg/dL Estim Creat Clear Calc 174.3 Estimated GFR > 60 Random Glucose 98 (60-115) mg/dL Calcium 10.1 (8.4-10.2) mg/dL Urine Color RED A Urine Appearance TURBID Urine pH 6.5 (5.0-8.0) Ur Specific [place] 1.020 (1.005-1.025) Urine Protein 2+ H (NEG-TRACE) MG/DL Urine Glucose (UA) NEG (NEG) MG/DL Urine Ketones 5 (NEG) MG/DL Urine Blood 3+ H (NEG) Urine Nitrite Not Reportable Ur Leukocyte Esterase Not Reportable Urine RBC 76-150 H (0) /HPF Urine WBC 0-2 (0-4) /HPF Ur Squamous Epith Cells TRACE /LPF Urine Bacteria NONE /LPF Urine Mucus TRACE /LPF Urine Test (NEGATIVE) 12/26/21 12/26/21 Range/Units 15:06 16:46 WBC 8.9 (4.8-10.8) X10*3/uL RBC 4.39 (4.20-5.50) X10*6/uL Hgb 12.9 (12.0-16.0) g/dl Hct 39.1 (37.0-47.0) % MCV 89.1 (80.0-98.0) fL MCH 29.4 (27.0-33.0) pg MCHC 33.0 (31.0-35.0) g/dl RDW 12.1 (11.0-16.0) % Plt Count 417 H (160-400) X10*3/uL MPV 9.6 (9.4-12.3) fL Immature Gran % (Auto) 0.2 (0.0-0.4) % Neut % (Auto) 62.1 (45-73) % Lymph % (Auto) 25.6 (20-40) % [place]rier % (Auto) 7.5 (2-11) % Eos % (Auto) 4.0 (0-4) % Baso % (Auto) 0.6 (0-2) % Lymph # (Auto) 2.3 (1.2-4.9) X10*3/uL [place] # (Auto) 0.7 (0.1-1.2) X10*3/uL Eos # (Auto) 0.4 (0.0-0.4) X10*3/uL Baso # (Auto) 0.1 (0.0-0.2) X10*3/uL Abs Immat Gran (auto) 0.02 (0.00-0.03) X10*3/uL Absolute Neuts (auto) 5.5 (2.0-8.3) x10*3/uL Absolute Nucleated RBC 0.000 (0.0-0.012) X10*3/uL Nucleated RBC % (auto) 0.0 (0.0-0.2) /100WBC Sodium (135-145) mmol/L Potassium (3.3-5.1) mmol/L Chloride (96-108) mmol/L Carbon Dioxide (22-29) mmol/L Anion Gap (12-20) BUN (9-16) mg/dL Creatinine (0.5-1.4) mg/dL Estim Creat Clear Calc Estimated GFR Random Glucose (60-115) mg/dL Calcium (8.4-10.2) mg/dL Urine Color Urine Appearance Urine pH (5.0-8.0) Ur Specific [place] (1.005-1.025) Urine Protein (NEG-TRACE) MG/DL Urine Glucose (UA) (NEG) MG/DL Urine Ketones (NEG) MG/DL Urine Blood (NEG) Urine Nitrite Ur Leukocyte Esterase Urine RBC (0) /HPF Urine WBC (0-4) /HPF Ur Squamous Epith Cells /LPF Urine Bacteria /LPF Urine Mucus /LPF Urine Test NEGATIVE (NEGATIVE) Imaging Data pelvic US: Radiologist's impression: US/US pelvic and transvaginal IMPRESSION: Unremarkable sonographic appearance of the pelvic viscera. Discharge Plan Discharge Clinical Impression: Vaginal bleeding Patient Disposition: Home, Self-Care Instructions: Menorrhagia (ED) Additional Instructions: Do not take your Xarelto tonight. You can hold your Xarelto for the next 1-2 days until the vaginal bleeding stops. Please contact your primary care provider tomorrow morning to schedule a follow-up visit within 1-3 days. You may return to the emergency department with any new or worsening symptoms or concerns Prescriptions: No Action metoprolol succinate [Toprol XL] 25 mg tablet extended release 24 hr 25 mg PO DAILY Qty: 30 0RF norgestimate-ethinyl estradiol [Greenbrier-Linyah] 0.25-35 mg-mcg tablet 1 tab PO DAILY 0RF cholecalciferol (vitamin D3) 1,250 mcg (50,000 unit) Tablet 1,250 mcg PO SA 0RF flecainide 150 mg tablet 150 mg PO BID PRN (Reason: atrial fibrillation) 0RF Xarelto 20 mg tablet 20 mg PO DAILY Qty: 30 2RF Rx Instructions: must administer with evening meal Referrals: Tiffanie Borjas MD [Primary Care Provider] - 3 days
[2021-12-26 15:20] LABS: Appearance Urine TURBID; Color Urine RED; Glucose Urine UA NEG (NEG); PH 6.5 (5.0-8.0); UACC Culture Trigger YES; UPreg QC Valid YES; Urine Blood 3+ (NEG); Urine Ketones 5 MG/DL (NEG); Urine Pregnancy NEGATIVE (NEGATIVE); Urine Protein 2+ MG/DL (NEG-TRACE)
[2021-12-26 15:27] LABS: Mucus Urine TRACE /LPF; Squamous Epithelial Cell Urine TRACE /LPF; WBC Urine 0-2 /HPF (0-4)
[2021-12-26 15:52] VITALS: BP 140/68; PULSE 92; RESP 18; TEMP 36.6; O2SAT 95
[2021-12-26 16:50] LABS: MANUAL DIFF FLAG NO
[2021-12-26 17:03] LABS: Basophils Absolute Auto 0.1 X10*3/uL (0.0-0.2); Basophils Percent Auto 0.6 % (0-2); Eosinophils Absolute Auto 0.4 X10*3/uL (0.0-0.4); Hematocrit 39.1 % (37.0-47.0); Hemoglobin 12.9 g/dl (12.0-16.0); Imm Gran Abs Auto 0.02 X10*3/uL (0.00-0.03); Imm Gran Pct Auto 0.2 % (0.0-0.4); Lymphocytes Absolute Auto 2.3 X10*3/uL (1.2-4.9); Lymphocytes Percent Auto 25.6 % (20-40); Mean Corpuscular Hemoglobin 29.4 pg (27.0-33.0); Mean Corpuscular Volume 89.1 fL (80.0-98.0); Mean Platelet Volume 9.6 fL (9.4-12.3); Monocytes Absolute Auto 0.7 X10*3/uL (0.1-1.2); Monocytes Percent Auto 7.5 % (2-11); Neutrophils Absolute Auto 5.5 x10*3/uL (2.0-8.3); Neutrophils Percent Auto 62.1 % (45-73); Platelet Count 417 X10*3/uL (160-400); Red Blood Count 4.39 X10*6/uL (4.20-5.50); Red Cell Distribution Width 12.1 % (11.0-16.0); White Blood Count 8.9 X10*3/uL (4.8-10.8)
--- NOTE | 2021-12-26 17:29 | PC.NURSE ---
Pt denies any associated sx with bleeding, NAD. Awaits repeat bld results for dispo
== END 2021-12-26 17:35 | disposition home or self-care (01) ==
PROVIDERS: Nurse Practitioner Family; Emergency Provider Internal Medicine; PCP Internal Medicine
DX: N92.0 Excessive and frequent menstruation with regular cycle (principal); I48.0 Paroxysmal atrial fibrillation; Z79.899 Other long term (current) drug therapy; Z79.01 Long term (current) use of anticoagulants
CPT/HCPCS: 36415; 76830; 76856; 80048; 81001; 81025; 85025; 87086; 99284

== ENCOUNTER 2022-01-12 07:41 | Outpatient (REF) | payer OTHER, MEDICAID, SELFPAY ==
[2022-01-12 10:04] LABS: Free T4 (Free Thyroxine) 0.84 ng/dL (0.71-1.85); Thyroid Stimulating Hormone 1.61 uIU/mL (0.32-4.0)
[2022-01-14 04:02] LABS: Triiodothyronine T3 Free 3.6 pg/mL (2.3-4.2)
== END 2022-01-12 07:42 | disposition home or self-care (01) ==
LOC: HO.LAB 07:41
PROVIDERS: PCP Internal Medicine; Visit Provider Internal Medicine Endocrinology, Diabetes & Metabolism
DX: R79.89 Other specified abnormal findings of blood chemistry (principal)
CPT/HCPCS: 36415; 84439; 84443; 84481

== ENCOUNTER → 2022-01-19 12:15 | Outpatient (REF) | payer OTHER, MEDICAID, SELFPAY ==
--- NOTE | 2022-01-19 13:50 | HM_ITS ---
Conclusion: 1. Patient was monitored for total period of 13 days and 22 hours 2. Baseline numbers normal sinus rhythm with average heart of 98 beats per minute with frequent sinus tachycardia, 47% of total time, heart rate greater than 100 beats per minute 3. No significant pauses or bradycardia noted 4. Total of 2075 PVCs accounting for 0.1% of total beats accounting for occasional PVCs 5. 1 patient reported event correlated with PVC MTDD
== END ==
LOC: HO.CARD 12:15
PROVIDERS: PCP Internal Medicine; Visit Provider Internal Medicine Cardiovascular Disease
DX: I48.0 Paroxysmal atrial fibrillation (principal)
CPT/HCPCS: 93246

== ENCOUNTER 2022-06-08 12:51 | Outpatient (REF) | payer OTHER, MEDICAID, SELFPAY ==
[2022-06-08 13:25] LABS: Hematocrit 40.9 % (37.0-47.0); Hemoglobin 13.7 g/dl (12.0-16.0); Mean Corpuscular HGB Conc 33.5 g/dl (31.0-35.0); Mean Corpuscular Hemoglobin 28.7 pg (27.0-33.0); Mean Corpuscular Volume 85.6 fL (80.0-98.0); Mean Platelet Volume 10.1 fL (9.4-12.3); Platelet Count 412 X10*3/uL (160-400); Red Blood Count 4.78 X10*6/uL (4.20-5.50); Red Cell Distribution Width 12.6 % (11.0-16.0); White Blood Count 8.9 X10*3/uL (4.8-10.8)
[2022-06-08 14:03] LABS: Alanine Aminotransferase 33 U/L (0-31); Albumin Level 4.4 g/dL (3.5-5.0); Alkaline Phosphatase 75 U/L (39-117); Aspartate Amino Transferase 20 U/L (5-31); Bilirubin Direct < 0.2 mg/dL (0.0-0.5); Bilirubin Total 0.2 mg/dL (0.0-1.0); Total Protein 7.3 g/dL (6.5-8.0)
== END 2022-06-08 12:52 | disposition home or self-care (01) ==
LOC: HO.LAB 12:51
PROVIDERS: PCP Internal Medicine; Visit Provider Psychiatry & Neurology Neurology
DX: G35 Multiple sclerosis (principal)
CPT/HCPCS: 36415; 80076; 85027

== ENCOUNTER → 2022-11-06 10:46 | Outpatient (BNVA) | payer OTHER, MEDICAID, SELFPAY | PROVIDERS: PCP Internal Medicine; Visit Provider Internal Medicine Cardiovascular Disease | DX: I48.0 Paroxysmal atrial fibrillation (principal); I47.1 Supraventricular tachycardia | CPT/HCPCS: 93005 ==

== ENCOUNTER 2022-12-07 12:02 | Outpatient (REF) | payer OTHER, MEDICAID, SELFPAY ==
[2022-12-07 12:28] LABS: Hematocrit 41.5 % (37.0-47.0); Hemoglobin 13.8 g/dl (12.0-16.0); Mean Corpuscular HGB Conc 33.3 g/dl (31.0-35.0); Mean Corpuscular Hemoglobin 28.9 pg (27.0-33.0); Mean Platelet Volume 9.6 fL (9.4-12.3); Platelet Count 437 X10*3/uL (160-400); Red Blood Count 4.77 X10*6/uL (4.20-5.50); Red Cell Distribution Width 12.3 % (11.0-16.0); White Blood Count 9.8 X10*3/uL (4.8-10.8)
[2022-12-07 12:48] LABS: Alanine Aminotransferase 20 U/L (0-31); Albumin Level 4.2 g/dL (3.5-5.0); Alkaline Phosphatase 83 U/L (39-117); Aspartate Amino Transferase 14 U/L (5-31); Bilirubin Direct 0.1 mg/dL (0.0-0.5); Bilirubin Total 0.5 mg/dL (0.0-1.0); Total Protein 6.6 g/dL (6.5-8.0)
== END 2022-12-07 12:03 | disposition home or self-care (01) ==
LOC: HO.LAB 12:02
PROVIDERS: PCP Internal Medicine; Visit Provider Psychiatry & Neurology Neurology
DX: G35 Multiple sclerosis (principal)
CPT/HCPCS: 36415; 80076; 85027

== ENCOUNTER 2023-02-15 14:18 | Outpatient (REF) | payer OTHER, MEDICAID, SELFPAY ==
--- NOTE | ~2023-02-15 | XR_ITS ---
EXAMINATION: XR HIP, RIGHT CLINICAL INFORMATION: Right hip laxity, worsening over last 4 months. COMPARISON: None available. TECHNIQUE: Two views of the right hip. FINDINGS: There is no evidence of acute fracture or dislocation of the right hip. Right hip joint spaces maintained without significant spurring identified. No abnormal lytic or sclerotic lesions are seen within the femoral head. No evidence of femoral head collapse. XR/XR hip RT min 2V IMPRESSION: No significant bony abnormality of the right hip identified.
== END 2023-02-15 14:19 | disposition home or self-care (01) ==
LOC: HO.HHCX 14:18
PROVIDERS: Visit Provider Family Medicine
DX: R29.898 Other symptoms and signs involving the musculoskeletal system (principal)
CPT/HCPCS: 73502

== ENCOUNTER 2023-03-27 07:14 | Emergency (ER) | payer OTHER, MEDICAID, SELFPAY ==
--- NOTE | ~2023-03-27 | XR_ITS ---
EXAMINATION: XR CHEST CLINICAL INFORMATION: Acute severe chest pain COMPARISON: Chest radiograph from 10/27/2021 TECHNIQUE: 2 views of the chest were obtained. FINDINGS: Bilateral low lung volumes. No pneumothorax. Trachea is midline. Cardiac mediastinal silhouette is not enlarged. No large pleural effusion. Osseous structures are intact. Soft tissues are unremarkable. XR/XR chest 2V IMPRESSION: No acute cardiopulmonary process.
--- NOTE | 2023-03-27 07:17 | ECG_ITS ---
Test Reason : chest pain Blood Pressure : / mmHG Vent. Rate : 065 BPM Atrial Rate : 065 BPM P-R Int : 152 ms QRS Dur : 084 ms QT Int : 386 ms P-R-T Axes : 037 026 029 degrees QTc Int : 401 ms Normal sinus rhythm with sinus arrhythmia Normal ECG When compared with ECG of 27-OCT-2021 15:58, Sinus rhythm has replaced Atrial fibrillation Vent. rate has decreased BY 48 BPM Referred By: Generic ED Physician Electronically Signed By:SANDRA MARIA
[2023-03-27 07:34] VITALS: BP 152/108; PULSE 78; RESP 18; TEMP 36.5; O2SAT 93; BMI 50.5
--- NOTE | 2023-03-27 07:34 | ED_ITS ---
HPI - Chest Pain General Chief Complaint: Chest Pain Stated Complaint: Chest pain/HX of afib Time Seen by Provider: 03/27/23 07:28 Source: patient and family Mode of arrival: ambulatory Limitations: no limitations History of Present Illness HPI narrative: 23-year-old female with history of atrial fibrillation, multiple sclerosis presents with chest pain. The chest pain started acutely this morning. Is severe. It is sternal in nature. Does not radiate. It is not associated with nausea vomiting shortness of breath. Patient has never had pain like this before. Pain appears to be potentially positional. It is not clearly better or worse with sitting or lying down however, patient feels very uncomfortable certain positions. Patient denies any swelling in her lower extremities. She has no history of PE or DVT. She does have an IUD in. Patient describes pain as sharp and constant. Related Data Home Medications Medication Instructions Recorded Confirmed cholecalciferol (vitamin D3) 1,250 1,250 mcg PO SA 10/27/21 11/06/22 mcg (50,000 unit) tablet norgestimate 0.25 mg-ethinyl 1 tab PO DAILY 10/27/21 11/06/22 estradiol 35 mcg tablet (Hayes-Linyah) flecainide 150 mg tablet 150 mg PO BID PRN atrial 11/01/21 11/06/22 fibrillation dimethyl fumarate 120 mg mg PO 01/12/22 11/06/22 capsule,delayed release Previous Rx's Medication Instructions Recorded metoprolol succinate 25 mg 25 mg PO DAILY #90 tabs 12/25/22 tablet,extended release 24 hr Allergies Allergy/AdvReac Type Severity Reaction Status Date / Time glatiramer (copolymer 1) Allergy Intermediate SHORTNESS Verified 01/12/22 07:49 [From COPAXONE] OF BREATH Review of Systems Review of Systems: CONSTITUTIONAL: Denies weight loss, fever and chills. HEENT: Denies changes in vision and hearing. RESPIRATORY: Denies SOB and cough. CV: Denies palpitations + CP. GI: Denies abdominal pain, nausea, vomiting and diarrhea. : Denies dysuria and urinary frequency. MSK: Denies myalgia and joint pain. SKIN: Denies rash and pruritus. NEUROLOGICAL: Denies headache and syncope. PSYCHIATRIC: Denies recent changes in mood. Denies anxiety and depression. All other ROS are negative unless in HPI PMFSH Past Medical History Medical History Atrial fibrillation with rapid ventricular response Hyperthyroidism Multiple sclerosis Multiple sclerosis Paroxysmal atrial fibrillation PCOS (polycystic ovarian syndrome) SVT (supraventricular tachycardia) Surgical History No pertinent past surgical history Social History Social History Household Members: Significant Other Housing: Apartment Alcohol intake: never Patient Tobacco Use Status: Never used Tobacco Smoked in Last 30 Days: No Use of substances other than those prescribed or required for medical reasons: Yes Substance Use Type: Marijuana Advance Directives: Yes Advance Directives Information Provided: Yes Advance Directives on File: No Patient : No service: No Current occupational status: employed Physical Exam Vital Signs: Vital Signs: Last Vital Signs Temp 97.7 F 03/27/23 10:07 Pulse 80 03/27/23 10:07 Resp 16 03/27/23 10:07 BP 108/63 03/27/23 10:07 Pulse Ox 98 03/27/23 10:07 O2 Del Method Room Air 03/27/23 10:07 BMI result Body Mass Index 50.5 GEN: Well developed, acute distress, alert, oriented HEENT: Normocephalic, atraumatic, normal external ears, nose appears normal, no oropharyngeal edema or exudates Eyes: Normal to appearance Neck: Supple, no lymphadenopathy Respiratory: Talks in complete sentences, no respiratory distress, clear to auscultation bilaterally Cardiovascular: Regular rate and rhythm, no murmurs rubs or gallops Abdomen: Soft, nontender, nondistended, no guarding, no rebound Back: No CVA tenderness Extremities: No clubbing cyanosis or edema Neurologic: No focal neurologic deficits, cranial nerves 2-12 intact, strength is 5/5 bilaterally Skin: No rash Chest Wall: Reproducible sternal tenderness to palpation Course Course Course Narrative: The workup is complete. We discussed the workup, patient did have recurrent pain. Was much more mild. She was given Tylenol and ibuprofen which resolved the pain. Repeat cardiac enzymes are negative. That coupled with a nonischemic EKG argues against coronary ischemia. In addition, patient has a negative D- dimer in a PERC score 0. Doubt pulmonary embolus. At this point, will discha rge patient with Tylenol and ibuprofen. Patient can follow up with primary care did a provider in a couple days or return for any worsening or concerning symptoms. Reevaluation(s) Reevaluation #1: Patient is currently pain-free Time: 08:46 Medications Administered Discontinued Medications Generic Name Dose Route Start Last Admin Trade Name Ivanna PRN Reason Stop Dose Admin Acetaminophen 975 mg 03/27/23 07:43 03/27/23 08:38 Acetaminophen 325 Mg Tablet PO 03/27/23 07:44 Not Given ONCE ONE Famotidine 20 mg 03/27/23 07:43 03/27/23 08:39 Famotidine/Pf 20 Mg/2 Ml Vial IVPUSH 03/27/23 07:44 Not Given ONCE ONE Ketorolac Tromethamine 15 mg 03/27/23 07:43 03/27/23 08:39 Ketorolac Tromethamine 15 Mg/Ml Vial IVPUSH 03/27/23 07:44 Not Given ONCE ONE Medical Decision Making Medical Decision Making [facility] Narrative: 23-year-old female with history of multiple sclerosis, paroxysmal atrial fibr illation presents with severe acute chest pain. Examination did have some reproducibility to the sternal area. Rest of her examination is unremarkable. She is not currently in atrial fibrillation. The differential diagnosis includes: Atypical chest pain, musculoskeletal chest pain, chest wall pain, myocardial infarction, pericarditis, myocarditis, anxiety, stress, reflux, pneumonia, pulmonary embolus, dissection Plan: Chest x-ray, EKG, laboratory analysis including inflammatory markers. W ill provide patient with analgesia and frequent re-evaluations. Disposition: Patient may warrant acute hospitalization depending on relief of pain, workup. Differential Diagnosis Differential Diagnoses: The differential diagnosis associated with the presentation includes Admission/Observation Consideration of admission/observation: Escalation of care including admission/observation considered Lab Data [facility] Lab Attestation statement: I reviewed the patient's lab results. 03/27/23 08:25 03/27/23 08:25 Labs: Lab Results 03/27/23 03/27/23 03/27/23 Range/Units 08:25 08:25 08:25 WBC 11.2 H (4.8-10.8) X10*3/uL RBC 4.84 (4.20-5.50) X10*6/uL Hgb 14.0 (12.0-16.0) g/dl Hct 42.4 (37.0-47.0) % MCV 87.6 (80.0-98.0) fL MCH 28.9 (27.0-33.0) pg MCHC 33.0 (31.0-35.0) g/dl RDW 12.5 (11.0-16.0) % Plt Count 403 H (160-400) X10*3/uL MPV 10.0 (9.4-12.3) fL Immature Gran % (Auto) 0.4 (0.0-0.4) % Neut % (Auto) 56.3 (45-73) % Lymph % (Auto) 32.4 (20-40) % [place] % (Auto) 7.8 (2-11) % Eos % (Auto) 2.5 (0-4) % Baso % (Auto) 0.6 (0-2) % Lymph # (Auto) 3.6 (1.2-4.9) X10*3/uL Hayes # (Auto) 0.9 (0.1-1.2) X10*3/uL Eos # (Auto) 0.3 (0.0-0.4) X10*3/uL Baso # (Auto) 0.1 (0.0-0.2) X10*3/uL Abs Immat Gran (auto) 0.04 H (0.00-0.03) X10*3/uL Absolute Neuts (auto) 6.3 (2.0-8.3) x10*3/uL Absolute Nucleated RBC 0.000 (0.0-0.012) X10*3/uL Nucleated RBC % (auto) 0.0 (0.0-0.2) /100WBC ESR (0-20) MM/HR D-Dimer High Sensitivty NG/ML Sodium 141 (135-145) mmol/L Potassium 4.0 (3.3-5.1) mmol/L Chloride 108 (96-108) mmol/L Carbon Dioxide 23 (22-29) mmol/L Anion Gap 14 (12-20) BUN 13 (9-16) mg/dL Creatinine 0.64 (0.5-1.4) mg/dL Estim Creat Clear Calc 177.9 Estimated GFR > 60 Random Glucose 103 (60-115) mg/dL Calcium 9.9 (8.4-10.2) mg/dL Troponin I High Sens < 2.7 (<3.5-17.0) ng/L C-Reactive Protein < 0.10 (< or = 0.50) mg/dL TSH 2.77 (0.32-4.0) uIU/mL 03/27/23 03/27/23 03/27/23 Range/Units 08:54 10:28 10:56 WBC (4.8-10.8) X10*3/uL RBC (4.20-5.50) X10*6/uL Hgb (12.0-16.0) g/dl Hct (37.0-47.0) % MCV (80.0-98.0) fL MCH (27.0-33.0) pg MCHC (31.0-35.0) g/dl RDW (11.0-16.0) % Plt Count (160-400) X10*3/uL MPV (9.4-12.3) fL Immature Gran % (Auto) (0.0-0.4) % Neut % (Auto) (45-73) % Lymph % (Auto) (20-40) % [place] % (Auto) (2-11) % Eos % (Auto) (0-4) % Baso % (Auto) (0-2) % Lymph # (Auto) (1.2-4.9) X10*3/uL [place] # (Auto) (0.1-1.2) X10*3/uL Eos # (Auto) (0.0-0.4) X10*3/uL Baso # (Auto) (0.0-0.2) X10*3/uL Abs Immat Gran (auto) (0.00-0.03) X10*3/uL Absolute Neuts (auto) (2.0-8.3) x10*3/uL Absolute Nucleated RBC (0.0-0.012) X10*3/uL Nucleated RBC % (auto) (0.0-0.2) /100WBC ESR 4 (0-20) MM/HR D-Dimer High Sensitivty 206 NG/ML Sodium (135-145) mmol/L Potassium (3.3-5.1) mmol/L Chloride (96-108) mmol/L Carbon Dioxide (22-29) mmol/L Anion Gap (12-20) BUN (9-16) mg/dL Creatinine (0.5-1.4) mg/dL Estim Creat Clear Calc Estimated GFR Random Glucose (60-115) mg/dL Calcium (8.4-10.2) mg/dL Troponin I High Sens < 2.7 (<3.5-17.0) ng/L C-Reactive Protein (< or = 0.50) mg/dL TSH (0.32-4.0) uIU/mL Independent Interpretation I performed an independent interpretation of an: EKG (Normal sinus rhythm heart rate 65, normal intervals, no acute ST elevations depressions) and Plain X-Ray Independent Historian Clinical information obtained from an independent historian. History obtained from or confirmed by: Parent Prescription Management I considered prescription management with: Pain Medication Chronic Conditions Patient?s care impacted by: Other (afib, MS) Discharge Plan Discharge Clinical Impression: Chest pain Patient Disposition: Home, Self-Care Instructions: Chest Pain (DC) Additional Instructions: Your workup today has been negative for any evidence of cardiac ischemia or pulmonary embolus. Etiology UE of her pain is not entirely clear. However, for ear pain and recommending Tylenol 1000 mg every 6 hours as needed and ibuprofen 600 mg every 6 hours as needed. Please take the ibuprofen with food as this can cause stomach irritation. Return for any worsening or concerning symptoms. Prescriptions: No Action metoprolol succinate 25 mg tablet extended release 24 hr 25 mg PO DAILY Qty: 90 3RF norgestimate-ethinyl estradiol [Hayes-Linyah] 0.25-35 mg-mcg tablet 1 tab PO DAILY cholecalciferol (vitamin D3) 1,250 mcg (50,000 unit) Tablet 1,250 mcg PO SA flecainide 150 mg tablet 150 mg PO BID PRN (Reason: atrial fibrillation) dimethyl fumarate 120 mg capsule,delayed release(DR/EC) PO Referrals: Tiffanie Borjas MD [Primary Care Provider] -
[2023-03-27 08:32] LABS: MANUAL DIFF FLAG NO
[2023-03-27 08:34] LABS: Basophils Absolute Auto 0.1 X10*3/uL (0.0-0.2); Basophils Percent Auto 0.6 % (0-2); Eosinophils Absolute Auto 0.3 X10*3/uL (0.0-0.4); Eosinophils Percent Auto 2.5 % (0-4); Hematocrit 42.4 % (37.0-47.0); Imm Gran Abs Auto 0.04 X10*3/uL (0.00-0.03); Imm Gran Pct Auto 0.4 % (0.0-0.4); Lymphocytes Absolute Auto 3.6 X10*3/uL (1.2-4.9); Lymphocytes Percent Auto 32.4 % (20-40); Mean Corpuscular Hemoglobin 28.9 pg (27.0-33.0); Mean Corpuscular Volume 87.6 fL (80.0-98.0); Monocytes Absolute Auto 0.9 X10*3/uL (0.1-1.2); Monocytes Percent Auto 7.8 % (2-11); Neutrophils Absolute Auto 6.3 x10*3/uL (2.0-8.3); Neutrophils Percent Auto 56.3 % (45-73); Platelet Count 403 X10*3/uL (160-400); Red Blood Count 4.84 X10*6/uL (4.20-5.50); Red Cell Distribution Width 12.5 % (11.0-16.0); White Blood Count 11.2 X10*3/uL (4.8-10.8)
[2023-03-27 08:55] LABS: Anion Gap 14 (12-20); Blood Urea Nitrogen 13 mg/dL (9-16); C Reactive Protein < 0.10 mg/dL (< or = 0.50); Calcium 9.9 mg/dL (8.4-10.2); Carbon Dioxide 23 mmol/L (22-29); Chloride 108 mmol/L (96-108); Creatinine Clr Calc Pharmacy 177.9; Estimated Glomerular Filt Rate > 60; Glucose Random 103 mg/dL (60-115); Sodium 141 mmol/L (135-145)
[2023-03-27 08:56] LABS: Troponin-I High Sensitivity < 2.7 ng/L (<3.5-17.0)
[2023-03-27 08:57] VITALS: BP 127/67; PULSE 87; RESP 18; TEMP 36.7; O2SAT 98
[2023-03-27 09:11] LABS: TSH reflex Free T4 2.77 uIU/mL (0.32-4.0)
--- NOTE | 2023-03-27 09:19 | PC.NURSE ---
Upon medication administration Pt stated she no longer was in pain and didn't want to take the medications. Pt informed staff if the pain come back she will inform staff. Provider made aware.
[2023-03-27 09:50] LABS: Erythrocyte Sedimentation Rate 4 MM/HR (0-20)
[2023-03-27 10:07] VITALS: BP 108/63; PULSE 80; RESP 16; TEMP 36.5; O2SAT 98
[2023-03-27 10:56] LABS: Troponin-I High Sensitivity < 2.7 ng/L (<3.5-17.0)
[2023-03-27 11:20] LABS: D Dimer High Sensitivity 206 NG/ML
== END 2023-03-27 12:20 | disposition home or self-care (01) ==
PROVIDERS: Emergency Provider Emergency Medicine; PCP Internal Medicine
DX: R07.9 Chest pain, unspecified (principal); G35 Multiple sclerosis; I48.0 Paroxysmal atrial fibrillation; F12.90 Cannabis use, unspecified, uncomplicated
CPT/HCPCS: 36415; 71046; 80048; 84443; 84484; 85025; 85379; 85652; 86140; 93005; 96374; 99284; 99285

== ENCOUNTER → 2023-03-27 07:17 | Outpatient (BNV) | payer OTHER, MEDICAID, SELFPAY | PROVIDERS: Emergency Provider Emergency Medicine; PCP Internal Medicine; Visit Provider Internal Medicine | DX: R07.9 Chest pain, unspecified (principal) | CPT/HCPCS: 93010 ==

== ENCOUNTER 2023-06-06 13:07 | Outpatient (AMB) | payer OTHER, MEDICAID, SELFPAY ==
--- NOTE | 2023-06-06 13:19 | A.OFFVIS_ITS ---
Intake Vital Signs 06/06/23 13:20 06/06/23 13:57 Height 5 ft 3 in Weight 282 lb 3.067 oz BMI 50.0 BP 128/80 Blood Pressure Location Lt brachial Position Sitting Pulse 101 H 89 Pulse Source Pulse Oximeter Intake Visit Reasons: c/o center of the chest pain since Mar Intake Note: Follow-up has had some chest pain since Mar c/o yesterday woke up with chest pain center of chest stronger took extra stenth tylenolol went away within an hour Hematologist Required: No Allergies glatiramer (copolymer 1) [From COPAXONE] Allergy (Intermediate, Verified 06/06/23 14:10) SHORTNESS OF BREATH Medication List - Last Reconciled 06/06/23 by Li Croft NP cholecalciferol (vitamin D3) 1,250 mcg PO SA dimethyl fumarate mg PO flecainide 150 mg PO BID PRN levonorgestrel (Liletta) intrauterine metoprolol succinate ER 25 mg PO DAILY HPI HPI Comments History of Present Illness Details 23-year-old female present for a ED foll ow-up for chest pain. She [place] [facility]. She states the longest episode was the day she went into the ED and it was 2.5 hours long. The last episode was yesterday and she took tylenol immedialtly and within the hour the pain was resolved. She struggles to describe the pain she states it just hurts . She denies SOB, vision changes, or dizziness with the episodes. The pain is in the middle of the chest but feels internal and is worse with laying down. She reports some stress. She was slightly tachcardic at 101 bpm - rechecked by me is 89 bpm. [facility] Medical History Paroxysmal atrial fibrillation Hyperthyroidism Multiple sclerosis Atrial fibrillation with rapid ventricular response PCOS (polycystic ovarian syndrome) Multiple sclerosis SVT (supraventricular tachycardia) Surgical History No pertinent past surgical history Social History Household Members: Significant Other Housing: Apartment Alcohol intake: never Patient Tobacco Use Status: Never used Tobacco Substance Use Type: Marijuana service: No Current occupational status: employed Review of Systems Const Denies chills, Denies fatigue, Denies fever(s), Denies frequent falls, Denies weakness, Denies weight gain and Denies weight loss ENT Denies dizziness Card Denies chest pain, Denies leg edema, Denies lightheadedness, Denies palpitations, Denies dyspnea, Denies dyspnea on exertion, Denies orthopnea and Denies other (loss of consciousness) Resp Denies cough, Denies dyspnea and Denies dyspnea on exertion GI Denies hematochezia and Denies change in stool character Musc Denies abnormal gait, Denies muscle weakness, Denies numbness, Denies radiating pain into limb and Denies tingling Neuro Denies abnormal gait, Denies dizziness, Denies frequent falls, Denies numbness, Denies tingling and Denies weakness Endo Denies fatigue and Denies palpitations Physical Exam Vital Signs: Last Vital Signs Pulse 89 06/06/23 13:57 BP 128/80 06/06/23 13:20 BMI result Body Mass Index 50.0 Const General: healthy appearing and no acute distress Orientation/consciousness: patient oriented x3 HEENT Head: Yes normal to inspection Eyes General: appearance normal, both eyes and all related structures Neck Neck: Yes normal visual inspection Chest Chest palpation & inspection: normal inspection of the chest Resp Effort & Inspection: normal respiratory effort Auscultation: clear to auscultation bilaterally Cardio Jugular venous distension: no JVD Palpation: normal PMI Rate: regular rate Rhythm: regular rhythm Heart sounds: S1 normal heart sound present, S2 normal heart sound present, no click, no gallops, no murmurs and no rubs GI Inspection: Yes normal to inspection Palpation (GI): Soft to palpation Skin General skin exam: no rashes or lesions noted Neuro General: patient oriented x3 Extrem General: Yes normal to inspection Psych Appearance: grossly normal Office Procedures EKG Details: EKG today: Sinus Tachycardia 101 bpm. [place]KG. [id number], Complete Assessment & Plan Assessment & Plan (1) Chest pain: Code(s): R07.9 - Chest pain, unspecified Plan ETT to see if we can reproduce symptoms and find any changes. Avoid caffeine, heart healthy diet, and stress mitigation. Will see Dr. Thurman as planned. Will call with results. Can call sooner for appointment if needed or seek ED care. Orders: Orders CA stress test 06/06/23 R07.9 - Chest pain, unspecified Medications: Refilled metoprolol succinate ER 25 mg PO DAILY 90 tabs 3RF Coding Level of Care Code Est Pt Level 3 (89880) Diagnoses Chest pain R07.9 CPT Codes EKG - CPT: 71324-[id number], Complete ([id number])
[2023-06-06 13:20] VITALS: BP 128/80; PULSE 101; BMI 50.0
[2023-06-06 13:57] VITALS: PULSE 89
== END 2023-06-06 14:02 | disposition home or self-care (01) ==
PROVIDERS: PCP Internal Medicine; Visit Provider Nurse Practitioner
DX: R00.0 Tachycardia, unspecified (principal)
CPT/HCPCS: 93010; 99213

== ENCOUNTER → 2023-06-06 13:07 | Outpatient (BNVA) | payer OTHER, MEDICAID, SELFPAY | PROVIDERS: PCP Internal Medicine; Visit Provider Nurse Practitioner | DX: R07.9 Chest pain, unspecified (principal) | CPT/HCPCS: 93005 ==

== ENCOUNTER 2023-07-17 15:10 | Outpatient (REF) | payer OTHER, MEDICAID, SELFPAY ==
[2023-07-17 16:19] LABS: Estimated Average Glucose 114 mg/dL; Hemoglobin A1c % 5.6 % (<6.0)
[2023-07-17 18:22] LABS: CT PCR NOT DETECTED (Not Detect.); NG PCR NOT DETECTED (Not Detect.)
[2023-07-18 04:32] LABS: HIV AB/AG Nonreactive (Nonreactive); HIV Num 1 0.06 S/CO (0.00-0.99); ~Hepatitis C Antibody Nonreactive (Nonreactive)
[2023-07-20 14:48] LABS: RPR Rapid Plasma Reagin NON-REACTIVE (NON-REACTIVE)
== END 2023-07-17 15:11 | disposition home or self-care (01) ==
LOC: HO.HHCL 15:10
PROVIDERS: Visit Provider Internal Medicine
DX: Z00.00 Encounter for general adult medical examination without abnormal findings (principal); Z11.4 Encounter for screening for human immunodeficiency virus [HIV]; Z20.2 Contact with and (suspected) exposure to infections with a predominantly sexual mode of transmission; E66.01 Morbid (severe) obesity due to excess calories; E28.2 Polycystic ovarian syndrome; I47.10 Supraventricular tachycardia, unspecified; G35 Multiple sclerosis
CPT/HCPCS: 0353U; 36415; 83036; 86592; 86803; 87389

== ENCOUNTER 2023-09-14 14:13 | Emergency (ER) | payer OTHER, MEDICAID, SELFPAY ==
--- NOTE | ~2023-09-14 | XR_ITS ---
EXAMINATION: XR CHEST CLINICAL INFORMATION: Paresthesias COMPARISON: None available. TECHNIQUE: 2 views of the chest were obtained. FINDINGS: No significant abnormality is noted involving the heart, lungs, mediastinum, bony thorax or soft tissues. XR/XR chest 2V IMPRESSION: Unremarkable
[2023-09-14 15:14] VITALS: BP 115/80; PULSE 91; RESP 18; TEMP 36; O2SAT 98; BMI 50.7
--- NOTE | 2023-09-14 15:15 | ED.GENADULT ---
HPI - General Adult General Chief complaint: Neuro Symptoms/Deficit Stated complaint: MS flare up - numbness in legs/hands Time Seen by Provider: 09/14/23 20:21 Related Data Home Medications Medication Instructions Recorded Confirmed cholecalciferol (vitamin D3) 1,250 1,250 mcg PO SA 10/27/21 11/06/22 mcg (50,000 unit) tablet flecainide 150 mg tablet 150 mg PO BID PRN atrial 11/01/21 11/06/22 fibrillation dimethyl fumarate 120 mg mg PO 01/12/22 11/06/22 capsule,delayed release levonorgestrel 20.4 mcg/24 hrs (8 intrauterine 06/06/23 yrs) 52 mg intrauterine device (Liletta) Previous Rx's Medication Instructions Recorded metoprolol succinate 25 mg 25 mg PO DAILY #90 tabs 06/06/23 tablet,extended release 24 hr Allergies Allergy/AdvReac Type Severity Reaction Status Date / Time glatiramer (copolymer 1) Allergy Intermediate SHORTNESS Verified 06/06/23 14:10 [From COPAXONE] OF BREATH PMFSH Past Medical History Onset Date is defined in the Problem List Problems that require an onset date and time if occurred within 24 hrs of arrival to the ED Aortic Dissection and Rupture; Neurologic impairment; Cardiopulmonary Arrest; Endotracheal Intubation; Insertion or Replacement of Mechanical Circulatory Assist Device Medical History Paroxysmal atrial fibrillation Hyperthyroidism Multiple sclerosis Atrial fibrillation with rapid ventricular response PCOS (polycystic ovarian syndrome) Multiple sclerosis SVT (supraventricular tachycardia) Surgical History No pertinent past surgical history Social History Social History Household Members: Significant Other Housing: Apartment Alcohol intake: never Patient Tobacco Use Status: Never used Tobacco Substance Use Type: Marijuana service: No Current occupational status: employed Physical Exam ED Vital Signs: BMI result Body Mass Index 50.7 Course Course Course Narrative: RME- 15:20pm 23yoF with a PMHx of MS currently being followed by Dr. Atwood presenting to the ER with complaints of B/l foot numbness ascending to chest/breast/arms since yesterday. Reports typical presentation for MS flare-up. Reports she has been without other MS flare up in many years. She reports usually she received an infusion of methylprednisone. She is concerned and would like an infusion as soon as possible. She has been out of her dimethyl fumarate medications for 8 days, due to change/delay in pharmacy. She has not taken her medications as of yet she does have him with her. She just received the medications today. Dr. Thurman is her almond grinder. Plan: Labs ordered at this time. Patient will be sent back to the waiting room. Medications Administered Discontinued Medications Generic Name Dose Route Start Last Admin Trade Name Ivanna PRN Reason Stop Dose Admin Methylprednisolone Sodium 66 mls @ 66 mls/hr 09/14/23 21:11 09/14/23 23:27 Succinate 1,000 mg/ Sodium IV 09/14/23 22:10 Infused Chloride ONCE ONE Infusion Medical Decision Making Lab Data 09/14/23 18:30 09/14/23 17:09 Labs: Lab Results 09/14/23 09/14/23 Range/Units 17:09 18:30 WBC 10.9 H (4.8-10.8) X10*3/uL RBC 5.11 (4.20-5.50) X10*6/uL Hgb 15.0 (12.0-16.0) g/dl Hct 44.9 (37.0-47.0) % MCV 87.9 (80.0-98.0) fL MCH 29.4 (27.0-33.0) pg MCHC 33.4 (31.0-35.0) g/dl RDW 12.2 (11.0-16.0) % Plt Count 427 H (160-400) X10*3/uL MPV 9.6 (9.4-12.3) fL Immature Gran % (Auto) 0.3 (0.0-0.4) % Neut % (Auto) 65.2 (45-73) % Lymph % (Auto) 27.3 (20-40) % [place] % (Auto) 4.0 (2-11) % Eos % (Auto) 2.7 (0-4) % Baso % (Auto) 0.5 (0-2) % Lymph # (Auto) 3.0 (1.2-4.9) X10*3/uL [place] # (Auto) 0.4 (0.1-1.2) X10*3/uL Eos # (Auto) 0.3 (0.0-0.4) X10*3/uL Baso # (Auto) 0.1 (0.0-0.2) X10*3/uL Abs Immat Gran (auto) 0.03 (0.00-0.03) X10*3/uL Absolute Neuts (auto) 7.1 (2.0-8.3) x10*3/uL Absolute Nucleated RBC 0.000 (0.0-0.012) X10*3/uL Nucleated RBC % (auto) 0.0 (0.0-0.2) /100WBC PT 11.6 (11.1-13.3) SEC INR 1.0 (0.9-1.1) Sodium 138 (135-145) mmol/L Potassium 4.1 (3.3-5.1) mmol/L Chloride 106 (96-108) mmol/L Carbon Dioxide 24 (22-29) mmol/L Anion Gap 12 (12-20) BUN 11 (9-16) mg/dL Creatinine 0.58 (0.5-1.4) mg/dL Estim Creat Clear Calc 196.7 Estimated GFR > 60 Random Glucose 99 (60-115) mg/dL Calcium 9.5 (8.4-10.2) mg/dL Magnesium 1.9 (1.6-2.6) mg/dL Total Bilirubin 0.3 (0.0-1.0) mg/dL AST 18 (5-31) U/L ALT 26 (0-31) U/L Alkaline Phosphatase 69 (39-117) U/L Total Creatine Kinase 54 (26-140) U/L Troponin I High Sens < 2.7 (<3.5-17.0) ng/L Total Protein 7.2 (6.5-8.0) g/dL Albumin 4.1 (3.5-5.0) g/dL TSH 0.88 (0.32-4.0) uIU/mL Beta HCG, Quant < 2 mIU/mL Discharge Plan Discharge Clinical Impression: Multiple sclerosis Patient Disposition: Home, Self-Care Instructions: Multiple Sclerosis (DC) Additional Instructions: Please come back tomorrow at approximately 8-9 p.m. for your 2nd dose of steroids. Prescriptions: No Action cholecalciferol (vitamin D3) 1,250 mcg (50,000 unit) Tablet 1,250 mcg PO SA flecainide 150 mg tablet 150 mg PO BID PRN (Reason: atrial fibrillation) dimethyl fumarate 120 mg capsule,delayed release(DR/EC) PO Liletta 20.4 mcg/24 hrs (8 yrs) 52 mg intrauterine device intrauterine metoprolol succinate 25 mg tablet extended release 24 hr 25 mg PO DAILY Qty: 90 3RF Referrals: WillisVera short MD [Emergency Provider] - 09/15/23 Interventions: ED Discharge Assessment Last Done: 09/14/23 23:43 Discharge Date/Time: 09/14/23 23:48
--- NOTE | 2023-09-14 15:18 | ECG_ITS ---
Test Reason : NEURO SYMPTOMS Blood Pressure : / mmHG Vent. Rate : 071 BPM Atrial Rate : 071 BPM P-R Int : 136 ms QRS Dur : 084 ms QT Int : 388 ms P-R-T Axes : 033 021 039 degrees QTc Int : 421 ms Normal sinus rhythm with sinus arrhythmia Normal ECG When compared with ECG of 27-MAR-2023 07:23, No significant change was found Referred By: Arabella Allen Electronically Signed By:SANDRA MARIA
[2023-09-14 17:44] LABS: Alanine Aminotransferase 26 U/L (0-31); Albumin Level 4.1 g/dL (3.5-5.0); Alkaline Phosphatase 69 U/L (39-117); Anion Gap 12 (12-20); Aspartate Amino Transferase 18 U/L (5-31); Bilirubin Total 0.3 mg/dL (0.0-1.0); Blood Urea Nitrogen 11 mg/dL (9-16); Calcium 9.5 mg/dL (8.4-10.2); Carbon Dioxide 24 mmol/L (22-29); Chloride 106 mmol/L (96-108); Creatinine Clr Calc Pharmacy 196.7; Estimated Glomerular Filt Rate > 60; Glucose Random 99 mg/dL (60-115); HCG Quantitative < 2 mIU/mL; Magnesium 1.9 mg/dL (1.6-2.6); Potassium 4.1 mmol/L (3.3-5.1); Sodium 138 mmol/L (135-145); Total Protein 7.2 g/dL (6.5-8.0); Troponin-I High Sensitivity < 2.7 ng/L (<3.5-17.0)
[2023-09-14 17:57] LABS: TSH reflex Free T4 0.88 uIU/mL (0.32-4.0)
[2023-09-14 18:37] LABS: Basophils Absolute Auto 0.1 X10*3/uL (0.0-0.2); Basophils Percent Auto 0.5 % (0-2); Eosinophils Absolute Auto 0.3 X10*3/uL (0.0-0.4); Eosinophils Percent Auto 2.7 % (0-4); Hematocrit 44.9 % (37.0-47.0); Imm Gran Abs Auto 0.03 X10*3/uL (0.00-0.03); Imm Gran Pct Auto 0.3 % (0.0-0.4); Lymphocytes Percent Auto 27.3 % (20-40); Mean Corpuscular HGB Conc 33.4 g/dl (31.0-35.0); Mean Corpuscular Hemoglobin 29.4 pg (27.0-33.0); Mean Corpuscular Volume 87.9 fL (80.0-98.0); Mean Platelet Volume 9.6 fL (9.4-12.3); Monocytes Absolute Auto 0.4 X10*3/uL (0.1-1.2); Neutrophils Absolute Auto 7.1 x10*3/uL (2.0-8.3); Neutrophils Percent Auto 65.2 % (45-73); Platelet Count 427 X10*3/uL (160-400); Red Blood Count 5.11 X10*6/uL (4.20-5.50); Red Cell Distribution Width 12.2 % (11.0-16.0); White Blood Count 10.9 X10*3/uL (4.8-10.8)
[2023-09-14 18:47] VITALS: BP 114/68; PULSE 71; RESP 20; O2SAT 100
[2023-09-14 18:51] LABS: Prothrombin Time 11.6 SEC (11.1-13.3)
[2023-09-14 19:54] LABS: MANUAL DIFF FLAG NO
[2023-09-14 20:26] VITALS: BP 130/89; PULSE 82; RESP 18; TEMP 36.9; O2SAT 98
--- NOTE | 2023-09-14 20:56 | ED.NEUROSD ---
HPI - Neuro Symptoms/Deficit General Chief Complaint: Neuro Symptoms/Deficit Stated Complaint: MS flare up - numbness in legs/hands Time Seen by Provider: 09/14/23 20:21 History of Present Illness HPI Narrative: Patient is a 23-year-old female with a history of MS. Presents today with having numbness that goes from the knees to the hip to the chest. No fever no chills. No coughing or congestion or upper respiratory symptoms. No diaphoresis. Related Data Home Medications Medication Instructions Recorded Confirmed cholecalciferol (vitamin D3) 1,250 1,250 mcg PO SA 10/27/21 11/06/22 mcg (50,000 unit) tablet flecainide 150 mg tablet 150 mg PO BID PRN atrial 11/01/21 11/06/22 fibrillation dimethyl fumarate 120 mg mg PO 01/12/22 11/06/22 capsule,delayed release levonorgestrel 20.4 mcg/24 hrs (8 intrauterine 06/06/23 yrs) 52 mg intrauterine device (Liletta) Previous Rx's Medication Instructions Recorded metoprolol succinate 25 mg 25 mg PO DAILY #90 tabs 06/06/23 tablet,extended release 24 hr Allergies Allergy/AdvReac Type Severity Reaction Status Date / Time glatiramer (copolymer 1) Allergy Intermediate SHORTNESS Verified 06/06/23 14:10 [From COPAXONE] OF BREATH Review of Systems Review of Systems: No fever no chills no chest pain positive numbness to the knees to the hip into the chest PMFSH Past Medical History Onset Date is defined in the Problem List Problems that require an onset date and time if occurred within 24 hrs of arrival to the ED Aortic Dissection and Rupture; Neurologic impairment; Cardiopulmonary Arrest; Endotracheal Intubation; Insertion or Replacement of Mechanical Circulatory Assist Device Medical History Paroxysmal atrial fibrillation Hyperthyroidism Multiple sclerosis Atrial fibrillation with rapid ventricular response PCOS (polycystic ovarian syndrome) Multiple sclerosis SVT (supraventricular tachycardia) Surgical History No pertinent past surgical history Social History Social History Household Members: Significant Other Housing: Apartment Alcohol intake: never Patient Tobacco Use Status: Never used Tobacco Substance Use Type: Marijuana Advance Directives: No Advance Directives Information Provided: No service: No Current occupational status: employed Physical Exam Vital Signs: Vital Signs: Last Vital Signs Temp 98.4 F 09/14/23 20:26 Pulse 82 09/14/23 20:26 Resp 18 09/14/23 20:26 BP 130/89 09/14/23 20:26 Pulse Ox 98 09/14/23 20:26 O2 Del Method Room Air 09/14/23 20:26 BMI result Body Mass Index 50.7 Appearance: Alert. Oriented X3. No acute distress. Eyes: Pupils equal, round and reactive to light. ENT: Pharynx normal. Neck: Normal inspection. Neck supple. No lymph nodes noted. No crepitus CVS: Normal heart rate and rhythm. Pulses normal. Normal S1 and S2 Respiratory: No respiratory distress. Breath sounds normal. No Wheezing. No rales Abdomen: Soft and nontender. No rigidity. No distention. good BS x4 Skin: Skin warm and dry. Normal skin color. Normal skin turgor. Extremities: No lower extremity edema. Neurovascular intact to all extremities. No Lacerations. No Rash Neuro: Oriented X 3. No motor deficit. No sensory deficit. Moving all extermities. No slurred speech. Equal reflexes at the knee. Equal reflexes at the ankle. Ambulates with a normal gait. Medical Decision Making Medical Decision Making [facility] Narrative: Positive numbness change in sensation similar to previous bouts of MS exacerbation. Patient's glucose was normal. Electrolytes were normal. Her case was consulted by the neurology team Dr. Atwood. Mayank with giving 3 day treatment of 1 g Solu-Medrol IV. First dose was given today. Ask patient to come back tomorrow for further treatment. Will also need a treatment on Sunday. She is currently in stable condition. Differential Diagnosis Differential Diagnoses: The differential diagnosis associated with the presentation includes MS exacerbation Admission/Observation Consideration of admission/observation: Escalation of care including admission/observation considered No need for admission Consult Healthcare Provider Management of the patient was discussed with: General Clerk (Neurology) Lab Data [facility] Lab Attestation statement: I reviewed the patient's lab results. 09/14/23 18:30 09/14/23 17:09 Labs: Lab Results 09/14/23 09/14/23 Range/Units 17:09 18:30 WBC 10.9 H (4.8-10.8) X10*3/uL RBC 5.11 (4.20-5.50) X10*6/uL Hgb 15.0 (12.0-16.0) g/dl Hct 44.9 (37.0-47.0) % MCV 87.9 (80.0-98.0) fL MCH 29.4 (27.0-33.0) pg MCHC 33.4 (31.0-35.0) g/dl RDW 12.2 (11.0-16.0) % Plt Count 427 H (160-400) X10*3/uL MPV 9.6 (9.4-12.3) fL Immature Gran % (Auto) 0.3 (0.0-0.4) % Neut % (Auto) 65.2 (45-73) % Lymph % (Auto) 27.3 (20-40) % [place] % (Auto) 4.0 (2-11) % Eos % (Auto) 2.7 (0-4) % Baso % (Auto) 0.5 (0-2) % Lymph # (Auto) 3.0 (1.2-4.9) X10*3/uL [place] # (Auto) 0.4 (0.1-1.2) X10*3/uL Eos # (Auto) 0.3 (0.0-0.4) X10*3/uL Baso # (Auto) 0.1 (0.0-0.2) X10*3/uL Abs Immat Gran (auto) 0.03 (0.00-0.03) X10*3/uL Absolute Neuts (auto) 7.1 (2.0-8.3) x10*3/uL Absolute Nucleated RBC 0.000 (0.0-0.012) X10*3/uL Nucleated RBC % (auto) 0.0 (0.0-0.2) /100WBC PT 11.6 (11.1-13.3) SEC INR 1.0 (0.9-1.1) Sodium 138 (135-145) mmol/L Potassium 4.1 (3.3-5.1) mmol/L Chloride 106 (96-108) mmol/L Carbon Dioxide 24 (22-29) mmol/L Anion Gap 12 (12-20) BUN 11 (9-16) mg/dL Creatinine 0.58 (0.5-1.4) mg/dL Estim Creat Clear Calc 196.7 Estimated GFR > 60 Random Glucose 99 (60-115) mg/dL Calcium 9.5 (8.4-10.2) mg/dL Magnesium 1.9 (1.6-2.6) mg/dL Total Bilirubin 0.3 (0.0-1.0) mg/dL AST 18 (5-31) U/L ALT 26 (0-31) U/L Alkaline Phosphatase 69 (39-117) U/L Total Creatine Kinase 54 (26-140) U/L Troponin I High Sens < 2.7 (<3.5-17.0) ng/L Total Protein 7.2 (6.5-8.0) g/dL Albumin 4.1 (3.5-5.0) g/dL TSH 0.88 (0.32-4.0) uIU/mL Beta HCG, Quant < 2 mIU/mL External Record Review External record reviewed: Inpatient record Chronic Conditions Multiple sclerosis Discharge Plan Discharge Clinical Impression: Multiple sclerosis Patient Disposition: Home, Self-Care Instructions: Multiple Sclerosis (DC) Additional Instructions: Please come back tomorrow at approximately 8-9 p.m. for your 2nd dose of steroids. Prescriptions: No Action cholecalciferol (vitamin D3) 1,250 mcg (50,000 unit) Tablet 1,250 mcg PO SA flecainide 150 mg tablet 150 mg PO BID PRN (Reason: atrial fibrillation) dimethyl fumarate 120 mg capsule,delayed release(DR/EC) PO Liletta 20.4 mcg/24 hrs (8 yrs) 52 mg intrauterine device intrauterine metoprolol succinate 25 mg tablet extended release 24 hr 25 mg PO DAILY Qty: 90 3RF Referrals: Vera Willis MD [Emergency Provider] - 09/15/23
--- NOTE | 2023-09-14 21:41 | PC.NURSE ---
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
[2023-09-14] MEDS: methylPREDNISolone Sod Succ 1,000 MG in 0.9 % Sodium Chloride 50 ML 66 MG IV (21:57)
[2023-09-14 23:33] VITALS: BP 117/78; PULSE 87; RESP 18; TEMP 37.1; O2SAT 97
== END 2023-09-14 23:48 | disposition home or self-care (01) ==
PROVIDERS: Physician Assistant Medical; Emergency Provider Emergency Medicine Emergency Medical Services; PCP Internal Medicine
DX: G35 Multiple sclerosis (principal); I48.0 Paroxysmal atrial fibrillation; I47.10 Supraventricular tachycardia, unspecified; Z79.899 Other long term (current) drug therapy
CPT/HCPCS: 36415; 71046; 80053; 82550; 83735; 84443; 84484; 84702; 85025; 85610; 93005; 96365; 96366; 99284; J2930

== ENCOUNTER → 2023-09-14 15:18 | Outpatient (BNV) | payer OTHER, SELFPAY | PROVIDERS: Emergency Provider Emergency Medicine Emergency Medical Services; PCP Internal Medicine; Visit Provider Internal Medicine | DX: G35 Multiple sclerosis (principal); R20.2 Paresthesia of skin | CPT/HCPCS: 93010 ==

== ENCOUNTER 2023-09-15 20:15 | Emergency (ER) | payer OTHER, MEDICAID, SELFPAY ==
[2023-09-15 20:20] VITALS: BP 136/90; PULSE 108; RESP 18; TEMP 36.2; O2SAT 97; BMI 51.5
--- NOTE | 2023-09-15 20:38 | ED_ITS ---
HPI - General Adult General Chief complaint: General Medical Stated complaint: return for steriods infusion Time Seen by Provider: 09/15/23 20:21 History of Present Illness HPI narrative: Patient is a 23-year-old female presents today for her 2nd dose of steroid infusion. Patient has numbness to her body in the upper extremity in the hands down to the thigh area. I saw her yesterday. She was given a dose of Solu- Medrol 1 g after consultation with Neurology Dr. Atwood. Because it is the weekend patient came back to the emergency department for her 2nd infusion today. Patient will also need a 3rd infusion tomorrow same dose 1 g of Solu- Medrol IV. Patient denies any systemic complaints. The numbness has not gotten worse. In fact is improving. Patient denies any chest pain or diaphoresis. Related Data Home Medications Medication Instructions Recorded Confirmed cholecalciferol (vitamin D3) 1,250 1,250 mcg PO SA 10/27/21 11/06/22 mcg (50,000 unit) tablet flecainide 150 mg tablet 150 mg PO BID PRN atrial 11/01/21 11/06/22 fibrillation dimethyl fumarate 120 mg mg PO 01/12/22 11/06/22 capsule,delayed release levonorgestrel 20.4 mcg/24 hrs (8 intrauterine 06/06/23 yrs) 52 mg intrauterine device (Liletta) Previous Rx's Medication Instructions Recorded metoprolol succinate 25 mg 25 mg PO DAILY #90 tabs 06/06/23 tablet,extended release 24 hr Allergies Allergy/AdvReac Type Severity Reaction Status Date / Time glatiramer (copolymer 1) Allergy Intermediate SHORTNESS Verified 06/06/23 14:10 [From COPAXONE] OF BREATH Review of Systems Review of Systems: No fever no chills no chest pain or shortness of breath Yes all other systems are reviewed and are negative PMFSH Past Medical History Attestation statement: The following information was validated with the patient. Onset Date is defined in the Problem List Problems that require an onset date and time if occurred within 24 hrs of arrival to the ED Aortic Dissection and Rupture; Neurologic impairment; Cardiopulmonary Arrest; Endotracheal Intubation; Insertion or Replacement of Mechanical Circulatory Assist Device Medical History Paroxysmal atrial fibrillation Hyperthyroidism Multiple sclerosis Atrial fibrillation with rapid ventricular response PCOS (polycystic ovarian syndrome) Multiple sclerosis SVT (supraventricular tachycardia) Surgical History No pertinent past surgical history Social History Social History Household Members: Significant Other Housing: Apartment Alcohol intake: never Patient Tobacco Use Status: Never used Tobacco Substance Use Type: Marijuana service: No Current occupational status: employed Physical Exam ED Vital Signs: Vital Signs - 24 hr 09/15/23 20:20 Temperature 97.2 F Pulse Rate 108 H Respiratory Rate 18 Blood Pressure 136/90 H Pulse Oximetry 97 Oxygen Delivery Method Room Air BMI result Body Mass Index 51.5 Appearance: Alert. Oriented X3. No acute distress. Eyes: Pupils equal, round and reactive to light. ENT: Pharynx normal. Neck: Normal inspection. Neck supple. No lymph nodes noted. No crepitus CVS: Normal heart rate and rhythm. Pulses normal. Normal S1 and S2 Respiratory: No respiratory distress. Breath sounds normal. No Wheezing. No rales Abdomen: Soft and nontender. No rigidity. No distention. good BS x4 Skin: Skin warm and dry. Normal skin color. Normal skin turgor. Extremities: No lower extremity edema. Neurovascular intact to all extremities. No Lacerations. No Rash Neuro: Oriented X 3. No motor deficit. No sensory deficit. Moving all extermities. No slurred speech Medical Decision Making Medical Decision Making MDM Narrative: Patient given 2nd dose of Solu-Medrol 1 g IV. Will need a 3rd dose tomorrow. Then closely follow up with Dr. Atwood. In stable condition. No distress. Differential Diagnosis Differential Diagnoses: The differential diagnosis associated with the presentation includes MS Admission/Observation Consideration of admission/observation: Escalation of care including admission/observation considered Independent Historian Clinical information obtained from an independent historian. History obtained from or confirmed by: Parent External Record Review External record reviewed: Inpatient record Discharge Plan Discharge Clinical Impression: Multiple sclerosis Patient Disposition: Home, Self-Care Instructions: Multiple Sclerosis (DC) Additional Instructions: Please come back tomorrow for your last dose of 1 g Solu-Medrol IV injection. Prescriptions: No Action cholecalciferol (vitamin D3) 1,250 mcg (50,000 unit) Tablet 1,250 mcg PO SA flecainide 150 mg tablet 150 mg PO BID PRN (Reason: atrial fibrillation) dimethyl fumarate 120 mg capsule,delayed release(DR/EC) PO Liletta 20.4 mcg/24 hrs (8 yrs) 52 mg intrauterine device intrauterine metoprolol succinate 25 mg tablet extended release 24 hr 25 mg PO DAILY Qty: 90 3RF Referrals: Vera Willis MD [Emergency Provider] - 09/16/23 Spencer Atwood MD [Physician] - 09/18/23
[2023-09-15 21:04] LABS: Glucose, Whole Blood 147 mg/dL (60-115)
[2023-09-15] MEDS: methylPREDNISolone Sod Succ 1,000 MG in 0.9 % Sodium Chloride 50 ML 33 MG IV (21:21)
[2023-09-15 21:57] VITALS: BP 114/71; PULSE 104; RESP 16; TEMP 36.9; O2SAT 97
--- NOTE | 2023-09-15 23:16 | PC.NURSE ---
Pt is a difficult stick. Multiple RN's attempted. Finally got it with the assistance of a heat pack. medications given at half of the rate, as a precaution to not blow the vein. Pt will be discharged after meds are administered.
== END 2023-09-15 23:42 | disposition home or self-care (01) ==
PROVIDERS: Emergency Provider Emergency Medicine Emergency Medical Services; PCP Internal Medicine
DX: G35 Multiple sclerosis (principal); R20.0 Anesthesia of skin; I48.0 Paroxysmal atrial fibrillation
CPT/HCPCS: 82947; 96365; 96366; 99284; J2930

== ENCOUNTER 2023-09-16 20:02 | Emergency (ER) | payer OTHER, MEDICAID, SELFPAY ==
[2023-09-16 20:15] VITALS: BP 135/78; PULSE 84; RESP 18; TEMP 36.9; O2SAT 97; BMI 50.7
--- NOTE | 2023-09-16 20:15 | ED.GENADULT ---
HPI - General Adult General Chief complaint: General Medical Stated complaint: here for infusion, was seen by garcia sunday Time Seen by Provider: 09/16/23 21:11 Source: patient and family (Mother) Mode of arrival: ambulatory History of Present Illness HPI narrative: 23-year-old female states that she was seen by Dr. Atwood on the of this month and at that time was feeling fine and then appears to been evaluated 2 days ago and felt to be in a flare with recommendations for daily 1 g Solu-Medrol infusion by Neurology. According to the patient she has improved over the 1st 2 days but then between yesterday and today states that the symptoms have returned and are stronger . Related Data Home Medications Medication Instructions Recorded Confirmed cholecalciferol (vitamin D3) 1,250 1,250 mcg PO SA 10/27/21 11/06/22 mcg (50,000 unit) tablet flecainide 150 mg tablet 150 mg PO BID PRN atrial 11/01/21 11/06/22 fibrillation dimethyl fumarate 120 mg mg PO 01/12/22 11/06/22 capsule,delayed release levonorgestrel 20.4 mcg/24 hrs (8 intrauterine 06/06/23 yrs) 52 mg intrauterine device (Liletta) Previous Rx's Medication Instructions Recorded metoprolol succinate 25 mg 25 mg PO DAILY #90 tabs 06/06/23 tablet,extended release 24 hr Allergies Allergy/AdvReac Type Severity Reaction Status Date / Time glatiramer (copolymer 1) Allergy Intermediate SHORTNESS Verified 06/06/23 14:10 [From COPAXONE] OF BREATH Review of Systems Review of Systems: Pertinent positives and negatives as stated in HPI [facility] Past Medical History Source: nursing notes reviewed Onset Date is defined in the Problem List Problems that require an onset date and time if occurred within 24 hrs of arrival to the ED Aortic Dissection and Rupture; Neurologic impairment; Cardiopulmonary Arrest; Endotracheal Intubation; Insertion or Replacement of Mechanical Circulatory Assist Device Medical History Paroxysmal atrial fibrillation Hyperthyroidism Multiple sclerosis Atrial fibrillation with rapid ventricular response PCOS (polycystic ovarian syndrome) Multiple sclerosis SVT (supraventricular tachycardia) Surgical History No pertinent past surgical history Social History Social History Household Members: Significant Other Housing: Apartment Alcohol intake: never Patient Tobacco Use Status: Never used Tobacco Substance Use Type: Marijuana Advance Directives: No Advance Directives Information Provided: No Patient : No service: No Current occupational status: employed Physical Exam ED Vital Signs: Vital Signs - 24 hr 09/16/23 20:15 Temperature 98.5 F Pulse Rate 84 Respiratory Rate 18 Blood Pressure 135/78 Pulse Oximetry 97 Oxygen Delivery Method Room Air BMI result Body Mass Index 50.7 VITAL SIGNS: Reviewed. GENERAL: Elevated BMI, Well developed, well nourished, in no acute distress. HEAD: Normocephalic/atraumatic EYES: PERRLA, EOMI EARS: Ext canals without abnormality NOSE: Nares patent bilateral OROPHARYNX: no oral lesions noted, posterior pharynx clear NECK: Supple, no adenopathy LUNGS: Normal breath sounds. No adventitious sounds or accessory muscle use. SpO2<97> CARDIOVASCULAR: Regular rate and rhythm without noted murmurs ABDOMEN: Soft, non-tender, non-distended with bowel sounds. MUSCULOSKELETAL: No tenderness, deformities, or effusions noted on gross inspection. EXTREMITIES: No cyanosis, clubbing or edema. SKIN: Inspection of the skin reveals no rashes NEUROLOGIC: Alert and oriented x 4. Strength and sensation to light touch were grossly intact x 4, gait is normal, no slurred speech, no blurry vision. Course Course Course Narrative: This is an RME: Additional HPI, ROS, PE not included below will be deferred to primary provider. Patient is a 23 old female who presents emergency department, past medical history multiple sclerosis, reporting that she needs Solu-Medrol 1 g IV infusion as per recommendation from Neurology, Dr. Atwood. So be her 3rd infusion today. At this time she reports hips and legs with numbness, worse today when compared to last night. States hand numbness more severe. Medications Administered Discontinued Medications Generic Name Dose Route Start Last Admin Trade Name Freq PRN Reason Stop Dose Admin Methylprednisolone Sodium 66 mls @ 66 mls/hr 09/16/23 21:00 09/16/23 22:34 Succinate 1,000 mg/ Sodium IV 09/16/23 21:59 66 mls/hr Chloride ONCE ONE Administration Procedures EJ/Peripheral Line Arm L: Time Out Performed: No Skin Cleansed in Sterile Fashion: Yes Size (gauge): 20 IV Secured and Dressing Applied: Yes Patient Tolerated Procedure: well Additional Comments: Peripheral line placed under ultrasound guidance. Medical Decision Making Medical Decision Making MDM Narrative: 23-year-old female with history and clinical presentation consistent with current management for what was presumed to be an MS flare with 1st and 2nd day of 1 g Solu-Medrol, however today she reports that her symptoms have returned and are stronger. 2134: I am reaching out to Neurology for further recommendation and it is my interpretation that if patient is undergoing a non-life threatening relapse steroids should be ameliorating the symptoms. There is no evidence of acute infection or encephalitis. At this time will hold 3rd g of Solu-Medrol until after discussing with Neurology. 2155: I discussed the case with Dr. Atwood who recommends to proceed with the 3rd g of Solu-Medrol and further management will best be addressed in the outpatient setting and he will see the patient in the office this week. Infusion is completed, patient continues to do well and is otherwise discharged with instructions to follow-up with neurology. Differential Diagnosis Differential Diagnoses: The differential diagnosis associated with the presentation includes Please see the discussion above Admission/Observation Consideration of admission/observation: Escalation of care including admission/observation considered Please see the discussion above Lab Data Labs: Lab Results 09/16/23 Range/Units 22:01 POC Glucose 86 (60-115) mg/dL External Record Review External record reviewed: Outpatient record and Prior outpatient labs Chronic Conditions Patient?s care impacted by: Other MS Discharge Plan Discharge Clinical Impression: Multiple sclerosis Patient Disposition: Home, Self-Care Instructions: Multiple Sclerosis (DC) Additional Instructions: 1. Resume all home medications as prescribed. 2. Please call the office of Neurology tomorrow morning and set up an appointment this week for re-evaluation and follow-up. Return to the ER for any worsening of symptoms. Prescriptions: No Action cholecalciferol (vitamin D3) 1,250 mcg (50,000 unit) Tablet 1,250 mcg PO SA flecainide 150 mg tablet 150 mg PO BID PRN (Reason: atrial fibrillation) dimethyl fumarate 120 mg capsule,delayed release(DR/EC) PO Liletta 20.4 mcg/24 hrs (8 yrs) 52 mg intrauterine device intrauterine metoprolol succinate 25 mg tablet extended release 24 hr 25 mg PO DAILY Qty: 90 3RF Referrals: Tiffanie Borjas MD [Primary Care Provider] - Spencer Atwood MD [Physician] -
[2023-09-16 22:11] LABS: Glucose, Whole Blood 86 mg/dL (60-115)
[2023-09-16] MEDS: methylPREDNISolone Sod Succ 1,000 MG in 0.9 % Sodium Chloride 50 ML 66 MG IV (22:34)
== END 2023-09-17 01:07 | disposition home or self-care (01) ==
PROVIDERS: Emergency Provider Student in an Organized Health Care Education/Training Program; PCP Internal Medicine
DX: G35 Multiple sclerosis (principal); Z79.899 Other long term (current) drug therapy
CPT/HCPCS: 36556; 82947; 96374; 99283; 99284; J2930

== ENCOUNTER 2023-09-24 14:40 | Outpatient (REF) | payer OTHER, SELFPAY ==
[2023-10-03 13:13] LABS: NMO IgG Autoantibodies NEGATIVE (NEGATIVE)
== END 2023-09-24 14:41 | disposition home or self-care (01) ==
LOC: HO.LAB 14:40
PROVIDERS: PCP Internal Medicine; Visit Provider Psychiatry & Neurology Neurology
DX: G35 Multiple sclerosis (principal)
CPT/HCPCS: 36415; 86052

== ENCOUNTER 2023-10-12 14:56 | Outpatient (REF) | payer OTHER, SELFPAY ==
--- NOTE | ~2023-10-12 | MR_ITS ---
EXAMINATION: MR BRAIN WITH AND WITHOUT CONTRAST CLINICAL INFORMATION: Relapsing, remitting multiple sclerosis COMPARISON: MR brain 12/15/2021 TECHNIQUE: MRI of the brain was obtained using routine sequences before and following administration of intravenous contrast. A total of 10 mL of Gadavist was administered intravenously. FINDINGS: There is no reduced diffusion to suggest acute infarct. Susceptibility weighted sequence is within normal limits. Interval development of several new T2/FLAIR hyperintense foci, for example in the right periventricular alcantar radiata/centrum semiovale, and in the right periatrial region. No associated enhancement or restricted diffusion to suggest active demyelination. There is a questionable lesion along the dorsal cervical spinal cord at the level of C2-C3. Redemonstrated left frontal developmental venous anomaly. Stable ventricular caliber. No midline shift or downward herniation. Intracranial flow voids are preserved. Scattered polypoid mucosal thickening in the paranasal sinuses. The mastoid air cells are well-aerated. No focal expansile or destructive osseous lesion. MR/MR head/brain wo/w con IMPRESSION: Redemonstrated T2/FLAIR hyperintense lesions compatible with the provided history of multiple sclerosis. Several lesions appear new from the prior examination, most prominent in the right periventricular region. No associated contrast enhancement to indicate active demyelination. There is likely demyelinating lesions along the dorsal cervical spinal cord at the level of C2 and C2-C3. If there is symptomatology referrable to this region, cervical spine MRI is recommended for further delineation.
[2023-10-12] MEDS: gadobutroL 10 ML VIAL IVPUSH (15:48)
== END 2023-10-12 14:57 | disposition home or self-care (01) ==
LOC: HO.MRI 14:56
PROVIDERS: PCP Internal Medicine; Visit Provider Psychiatry & Neurology Neurology
DX: G35 Multiple sclerosis (principal)
CPT/HCPCS: 70553; A9585

== ENCOUNTER 2023-11-27 14:07 | Outpatient (AMB) | payer OTHER, SELFPAY ==
[2023-11-27 14:20] VITALS: BP 132/82; PULSE 89; BMI 51.2
--- NOTE | 2023-11-27 14:20 | MHC.OFFVIS ---
Intake Vital Signs 11/27/23 14:20 Height 5 ft 3 in Weight 288 lb 12.889 oz BMI 51.2 BP 132/82 Blood Pressure Location Lt brachial Position Sitting Pulse 89 Intake Visit Reasons: 1 year follow up (rs) Intake Note: 1 year follow-up with ekg feeling good maybe starting new MS infussions [employer] Required: No Allergies glatiramer (copolymer 1) [From COPAXONE] Allergy (Intermediate, Verified 06/06/23 14:10) SHORTNESS OF BREATH Medication List - Last Reconciled 11/27/23 by Dusty Thurman MD cholecalciferol (vitamin D3) 1,250 mcg PO SA dimethyl fumarate mg PO flecainide 150 mg PO BID PRN levonorgestrel (Liletta) intrauterine metoprolol succinate ER 25 mg PO DAILY HPI HPI Comments History of Present Illness Details Diego comes for follow-up. Last year she has not had any recurrent episodes of SVT. She has been doing overall well. She has not taken additional flecainide. She said there is recently an exacerbation of her multiple sclerosis and this has shown some new lesions on MRI. They are considering to start her on new immediately modulators. She concerned about interactions with the cardiac meds. She has not lost weight and says she has gained some weight. Denies any worsening shortness of breath, chest pain, lightheadedness, syncope. [facility] Medical History Paroxysmal atrial fibrillation Hyperthyroidism Multiple sclerosis Atrial fibrillation with rapid ventricular response PCOS (polycystic ovarian syndrome) Multiple sclerosis SVT (supraventricular tachycardia) Surgical History No pertinent past surgical history Social History Household Members: Significant Other Housing: Apartment Alcohol intake: never Patient Tobacco Use Status: Never used Tobacco Substance Use Type: Marijuana service: No Current occupational status: employed Review of Systems Const Denies chills, Denies fatigue, Denies fever(s), Denies frequent falls, Denies weakness, Denies weight gain and Denies weight loss ENT Denies dizziness Card Denies chest pain, Denies leg edema, Denies lightheadedness, Denies palpitations, Denies dyspnea, Denies dyspnea on exertion, Denies orthopnea and Denies other (loss of consciousness) Resp Denies cough, Denies dyspnea and Denies dyspnea on exertion GI Denies hematochezia and Denies change in stool character Musc Denies abnormal gait, Denies muscle weakness, Denies numbness, Denies radiating pain into limb and Denies tingling Neuro Denies Abnormal speech present, Denies abnormal gait, Denies dizziness, Denies frequent falls, Denies numbness, Denies tingling and Denies weakness Endo Denies fatigue and Denies palpitations Physical Exam Vital Signs: Last Vital Signs Pulse 89 11/27/23 14:20 BP 132/82 11/27/23 14:20 BMI result Body Mass Index 51.2 Const General: cooperative, comfortable, no acute distress, alert, awake and anxious Nutritional Appearance: obese morbidly obese Orientation/consciousness: patient oriented x3 Limitations: no limitations HEENT Head: Yes normocephalic and Yes atraumatic Neck Neck: Yes trachea midline, Yes supple and Yes no JVD Chest Chest palpation & inspection: normal inspection of the chest Resp Effort & Inspection: normal respiratory effort Auscultation: clear to auscultation bilaterally Cardio Jugular venous distension: no JVD Palpation: normal PMI Rate: regular rate Rhythm: regular rhythm Heart sounds: S1 normal heart sound present, S2 normal heart sound present, no click, no gallops, no murmurs and no rubs GI Auscultation: normal bowel sounds Skin General skin exam: no rashes or lesions noted Neuro General: patient oriented x3 and no focal motor deficits Speech: No Abnormal speech present Extrem General: Yes no clubbing, cyanosis or edema Psych Appearance: grossly normal Office Procedures EKG Details: EKG shows normal sinus rhythm with normal EKG with normal axis and normal intervals [id number], Complete Assessment & Plan Assessment & Plan (1) SVT (supraventricular tachycardia): Code(s): I47.1 - Supraventricular tachycardia Plan: SVT with no obvious clinical recurrence on current metoprolol therapy. Continue the same therapy. Discussed management of SVT. No further therapy recommended. Avoidance of stimulants was discussed. Vagal maneuvers were discussed. Reviewed the immunomodulators she suggested and there is no clear interaction with metoprolol therapy. (2) Paroxysmal atrial fibrillation: Code(s): I48.0 - Paroxysmal atrial fibrillation Plan: Paroxysmal atrial fibrillation without any clinical recurrence. Continue risk factor modification. She is encouraged to participate in aggressive weight loss program. P.r.n. flecainide use was discussed if need be. Continue metoprolol therapy. Avoidance of stimulants was discussed. Will follow up in the clinic in 1 year's time, sooner p.r.n.. Thank you for allowing me to partake in the care Coding Level of Care Code Est Pt Level 4 (85008) Diagnoses SVT (supraventricular tachycardia) I47.1 Paroxysmal atrial fibrillation I48.0 CPT Codes EKG - CPT: 76080-[id number], Complete ([id number])
== END 2023-11-27 14:51 | disposition home or self-care (01) ==
PROVIDERS: PCP Internal Medicine; Visit Provider Internal Medicine Cardiovascular Disease
DX: I47.10 Supraventricular tachycardia, unspecified (principal); I48.0 Paroxysmal atrial fibrillation
CPT/HCPCS: 93010; 99214

== ENCOUNTER → 2023-11-27 14:07 | Outpatient (BNVA) | payer OTHER, SELFPAY | PROVIDERS: PCP Internal Medicine; Visit Provider Internal Medicine Cardiovascular Disease | DX: I47.10 Supraventricular tachycardia, unspecified (principal); I48.0 Paroxysmal atrial fibrillation; Z79.899 Other long term (current) drug therapy | CPT/HCPCS: 93005 ==

== ENCOUNTER 2024-05-07 06:18 | Emergency (ER) | payer OTHER, SELFPAY ==
--- NOTE | 2024-05-07 | ECG_ITS ---
Test Reason : CHEST PAIN Blood Pressure : / mmHG Vent. Rate : 061 BPM Atrial Rate : 061 BPM P-R Int : 120 ms QRS Dur : 080 ms QT Int : 414 ms P-R-T Axes : 024 019 031 degrees QTc Int : 416 ms Normal sinus rhythm with sinus arrhythmia Normal ECG When compared with ECG of 14-SEP-2023 16:50, No significant change was found Referred By: Generic ED Physician Electronically Signed By:NAVJOT SANON
[2024-05-07 06:24] VITALS: BP 128/81; PULSE 70; O2SAT 98
[2024-05-07 06:27] VITALS: BP 132/80; PULSE 72; RESP 16; TEMP 36.8; O2SAT 100; BMI 50.7
[2024-05-07 06:42] LABS: Basophils Absolute Auto 0.1 X10*3/uL (0.0-0.2); Basophils Percent Auto 0.7 % (0-2); Eosinophils Absolute Auto 0.4 X10*3/uL (0.0-0.4); Eosinophils Percent Auto 3.3 % (0-4); Hematocrit 42.8 % (37.0-47.0); Hemoglobin 14.4 g/dl (12.0-16.0); Imm Gran Abs Auto 0.03 X10*3/uL (0.00-0.03); Imm Gran Pct Auto 0.3 % (0.0-0.4); Lymphocytes Absolute Auto 3.1 X10*3/uL (1.2-4.9); MANUAL DIFF FLAG NO; Mean Corpuscular HGB Conc 33.6 g/dl (31.0-35.0); Mean Corpuscular Hemoglobin 29.8 pg (27.0-33.0); Mean Corpuscular Volume 88.4 fL (80.0-98.0); Mean Platelet Volume 9.9 fL (9.4-12.3); Monocytes Absolute Auto 0.8 X10*3/uL (0.1-1.2); Monocytes Percent Auto 7.2 % (2-11); Neutrophils Percent Auto 61.5 % (45-73); Platelet Count 442 X10*3/uL (160-400); Red Blood Count 4.84 X10*6/uL (4.20-5.50); Red Cell Distribution Width 12.4 % (11.0-16.0); White Blood Count 11.4 X10*3/uL (4.8-10.8)
[2024-05-07 06:57] LABS: Alanine Aminotransferase 17 U/L (0-31); Albumin Level 3.9 g/dL (3.5-5.0); Alkaline Phosphatase 71 U/L (39-117); Anion Gap 11 (12-20); Aspartate Amino Transferase 15 U/L (5-31); Bilirubin Total 0.4 mg/dL (0.0-1.0); Blood Urea Nitrogen 16 mg/dL (9-16); Calcium 9.6 mg/dL (8.4-10.2); Carbon Dioxide 24 mmol/L (22-29); Chloride 108 mmol/L (96-108); Creatinine Clr Calc Pharmacy 146.9; Estimated Glomerular Filt Rate > 60; Glucose Random 110 mg/dL (60-115); Potassium 3.7 mmol/L (3.3-5.1); Sodium 139 mmol/L (135-145); Total Protein 6.7 g/dL (6.5-8.0)
[2024-05-07 07:01] LABS: Troponin-I High Sensitivity < 2.7 ng/L (<3.5-17.0)
[2024-05-07 08:01] VITALS: BP 135/68; PULSE 69; RESP 16; TEMP 36.6; O2SAT 99
--- NOTE | 2024-05-07 08:13 | ED.CHESTPAIN ---
HPI - Chest Pain General Chief Complaint: Chest Pain Stated Complaint: CP 2x hours no radiating Time Seen by Provider: 05/07/24 08:08 Source: patient Mode of arrival: ambulatory Limitations: no limitations History of Present Illness ED Provider: jaguar ROSAS narrative: Patient is a 24-year-old female with history of MS, paroxysmal afib on metoprolol, not anticoagulated, SVT, hyperthyroidism, PCOS presenting to the emergency department with complaint of chest pain which woke her from sleep this morning. States that she took 1 g of Tylenol but pain persisted for approximately 1 hour and has since resolved. Denies associated nausea, dyspnea, palpitations. Reports she also took 324 mg of aspirin as advised by stem roller or crusher operator. Patient states that she used her THC vape pen last night, which she uses daily. Has experienced similar chest pain in the past after using the THC. Does not want her mother to be aware that she is using THC. She states that she is using the THC recreationally. Does report history of anxiety for which she has been seeing a therapist on a weekly basis. He is not taking any prescription medications for anxiety. MD complaint: chest pain Pertinent past history: other Onset (ago): hour(s) Timing of current episode: now resolved Prior episodes: Yes Onset: awoke with symptoms Pain location: substernal Pain radiation: none Severity: severe Quality: sharp Context: other Treatment prior to arrival: aspirin and other Related Data Home Medications ?Medication ?Instructions ?Recorded ?Confirmed cholecalciferol (vitamin D3) 1,250 1,250 mcg PO SA 10/27/21 11/27/23 mcg (50,000 unit) tablet flecainide 150 mg tablet 150 mg PO BID PRN atrial 11/01/21 11/27/23 fibrillation dimethyl fumarate 120 mg mg PO 01/12/22 11/27/23 capsule,delayed release levonorgestrel 20.4 mcg/24 hr (up intrauterine 06/06/23 11/27/23 to 8 yrs) 52 mg intrauterine device (Liletta) Previous Rx's ?Medication ?Instructions ?Recorded metoprolol succinate 25 mg 25 mg PO DAILY #90 tabs 06/06/23 tablet,extended release 24 hr Allergies Allergy/AdvReac Type Severity Reaction Status Date / Time glatiramer (copolymer 1) Allergy Intermediate SHORTNESS Verified 05/07/24 06:31 [From COPAXONE] OF BREATH Review of Systems Review of Systems: As per HPI. Yes all other systems are reviewed and are negative Constitutional: Constitutional: Reports as per HPI [facility] Past Medical History Medical History Paroxysmal atrial fibrillation Hyperthyroidism Multiple sclerosis Atrial fibrillation with rapid ventricular response PCOS (polycystic ovarian syndrome) Multiple sclerosis SVT (supraventricular tachycardia) Surgical History No pertinent past surgical history Social History Social History Household Members: Significant Other Housing: Apartment Alcohol intake: never Patient Tobacco Use Status: Never used Tobacco Substance Use Type: Marijuana Advance Directives: No Advance Directives Information Provided: No Do you have a plan to hurt others: No Plan service: No Current occupational status: employed Physical Exam Vital Signs: Vital Signs: Last Vital Signs Temp 97.8 F 05/07/24 08:01 Pulse 69 05/07/24 08:01 Resp 16 05/07/24 08:01 BP 135/68 05/07/24 08:01 Pulse Ox 99 05/07/24 08:01 O2 Del Method Room Air 05/07/24 08:01 BMI result Body Mass Index 50.7 Vital signs have been reviewed and appear to be correct. Blood pressure normal. Heart rate normal. Respiratory rate normal. Temperature normal. Oxygen saturation normal. Const: General: cooperative, healthy appearing and no acute distress Orientation/consciousness: oriented to person, oriented to place, oriented to time and patient oriented x3 Limitations: no limitations HEENT: Head: Yes normocephalic and Yes atraumatic Ears: external ears normal General nose exam: Normal external nose present Face and sinus: Yes face symmetric Mouth: oropharynx normal and moist mucous membranes Throat: Yes uvula midline Eyes: Pupils: Equal, round and reactive pupils present Neck: Neck: Yes normal visual inspection and Yes supple Resp: Effort & Inspection: normal respiratory effort and able to speak in complete sentences Auscultation: clear to auscultation bilaterally Cardio: Rate: regular rate Rhythm: regular rhythm Heart sounds: S1 normal heart sound present and S2 normal heart sound present GI: Palpation (GI): Soft to palpation and nontender Auscultation: normoactive bowel sounds : General: Yes no CVA tenderness Back/Spine/Pelvis: Back: no CVA tenderness Skin: General skin exam: elasticity normal and turgor normal Neuro: General: oriented to person, oriented to place, oriented to time, patient oriented x3, moves all extremities, no focal motor deficits and CN's II-XI intact bilaterally Cranial nerves: Yes Equal, round and reactive pupils present Cognition (Neuro): normal cognition Extrem: General: Yes full ROM, Yes no pedal edema and Yes no calf tenderness Psych: Mental Status: mental status grossly normal Affect: normal affect Thought process: Normal thought process present Medical Decision Making Medical Decision Making [facility] Narrative: Patient is a 24-year-old female with history of MS, paroxysmal afib on metoprolol, not anticoagulated, SVT, hyperthyroidism, PCOS presenting to the emergency department with complaint of chest pain which woke her from sleep this morning. On exam patient is awake, A+Ox3, VS WNL, afebrile, normal neurological exam without focal deficits, physical exam findings as above. Given reported symptoms and physical exam findings, initial differential includes cardiac arrhythmia, musculoskeletal pain, anxiety, GERD, adverse reaction to THC. Less likely ACS, pneumonia, PE. EKG shows normal sinus rhythm. Labs notable for negative D-dimer, slight leukocytosis consistent with prior values, negative initial and repeat troponin. Discussed with patient that if she is repeatedly having chest pain after using THC, she may want to consider discontinuation of this. Did discuss asking therapist about medication for anxiety. All results discussed with patient all questions answered. Feel patient is stable for discharge home at this time. Return precautions discussed. Follow up with PCP/fruit buying grader as needed. Patient verbalized understanding of and agreement with plan. Differential Diagnosis Differential Diagnoses: The differential diagnosis associated with the presentation includes As per [facility]. Admission/Observation Consideration of admission/observation: Escalation of care including admission/observation considered Patient would have been admitted to the hospital had their work up had any findings where hospital admission was appropriate and their clinical presentation warranted hospital admission. Lab Data [facility] Lab Attestation statement: I reviewed the patient's lab results. As per MDM. 05/07/24 06:35 05/07/24 06:35 Labs: Lab Results 05/07/24 05/07/24 Range/Units 06:35 08:38 WBC 11.4 H (4.8-10.8) X10*3/uL RBC 4.84 (4.20-5.50) X10*6/uL Hgb 14.4 (12.0-16.0) g/dl Hct 42.8 (37.0-47.0) % MCV 88.4 (80.0-98.0) fL MCH 29.8 (27.0-33.0) pg MCHC 33.6 (31.0-35.0) g/dl RDW 12.4 (11.0-16.0) % Plt Count 442 H (160-400) X10*3/uL MPV 9.9 (9.4-12.3) fL Immature Gran % (Auto) 0.3 (0.0-0.4) % Neut % (Auto) 61.5 (45-73) % Lymph % (Auto) 27.0 (20-40) % Simpson % (Auto) 7.2 (2-11) % Eos % (Auto) 3.3 (0-4) % Baso % (Auto) 0.7 (0-2) % Lymph # (Auto) 3.1 (1.2-4.9) X10*3/uL Simpson # (Auto) 0.8 (0.1-1.2) X10*3/uL Eos # (Auto) 0.4 (0.0-0.4) X10*3/uL Baso # (Auto) 0.1 (0.0-0.2) X10*3/uL Abs Immat Gran (auto) 0.03 (0.00-0.03) X10*3/uL Absolute Neuts (auto) 7.0 (2.0-8.3) x10*3/uL Absolute Nucleated RBC 0.000 (0.0-0.012) X10*3/uL Nucleated RBC % (auto) 0.0 (0.0-0.2) /100WBC D-Dimer High Sensitivty 150 NG/ML Sodium 139 (135-145) mmol/L Potassium 3.7 (3.3-5.1) mmol/L Chloride 108 (96-108) mmol/L Carbon Dioxide 24 (22-29) mmol/L Anion Gap 11 L (12-20) BUN 16 (9-16) mg/dL Creatinine 0.77 (0.5-1.4) mg/dL Estim Creat Clear Calc 146.9 Estimated GFR > 60 Random Glucose 110 (60-115) mg/dL Calcium 9.6 (8.4-10.2) mg/dL Total Bilirubin 0.4 (0.0-1.0) mg/dL AST 15 (5-31) U/L ALT 17 (0-31) U/L Alkaline Phosphatase 71 (39-117) U/L Troponin I High Sens < 2.7 < 2.7 (<3.5-17.0) ng/L Total Protein 6.7 (6.5-8.0) g/dL Albumin 3.9 (3.5-5.0) g/dL TSH 2.02 (0.32-4.0) uIU/mL Independent Interpretation I performed an independent interpretation of an: EKG (normal sinus rhythm, rate 61bpm, normal MS interval and QTc, no significant change from prior) External Record Review External record reviewed: Inpatient record, Office record and Outpatient record Discharge Plan Discharge Clinical Impression: Chest pain Patient Disposition: Home, Self-Care Instructions: Chest Pain (DC), Noncardiac Chest Pain (ED) Additional Instructions: You were evaluated in the emergency department today for chest pain. Your evaluation has shown no signs of medical conditions requiring emergent intervention at this time, however we recommend that you follow-up with your primary care physician or your fruit buying grader for further testing as an outpatient. Please schedule an appointment for follow-up with your primary care physician as soon as possible. Return to the emergency department if you experience worsening or uncontrolled chest pain, shortness of breath, lightheadedness, feeling faint, loss of consciousness, nausea, vomiting, or any other concerning symptoms. Prescriptions: No Action cholecalciferol (vitamin D3) 1,250 mcg (50,000 unit) Tablet 1,250 mcg PO SA flecainide 150 mg tablet 150 mg PO BID PRN (Reason: atrial fibrillation) dimethyl fumarate 120 mg capsule,delayed release(DR/EC) PO Liletta 20.4 mcg/24 hrs (8 yrs) 52 mg intrauterine device intrauterine metoprolol succinate 25 mg tablet extended release 24 hr 25 mg PO DAILY Qty: 90 3RF Print Language: Macedonian
[2024-05-07 08:52] LABS: D Dimer High Sensitivity 150 NG/ML
[2024-05-07 09:17] LABS: Troponin-I High Sensitivity < 2.7 ng/L (<3.5-17.0)
[2024-05-07 09:23] LABS: TSH reflex Free T4 2.02 uIU/mL (0.32-4.0)
[2024-05-07 10:28] VITALS: BP 135/68; PULSE 69; RESP 16; TEMP 36.6; O2SAT 99
== END 2024-05-07 10:29 | disposition home or self-care (01) ==
PROVIDERS: Registered Nurse Emergency; Emergency Provider Emergency Medicine Emergency Medical Services; PCP Internal Medicine
DX: R07.9 Chest pain, unspecified (principal); G35 Multiple sclerosis; I48.0 Paroxysmal atrial fibrillation; Z79.899 Other long term (current) drug therapy
CPT/HCPCS: 36415; 80053; 84443; 84484; 85025; 85379; 93005; 99283; 99284

== ENCOUNTER 2024-05-28 00:46 | Emergency (ER) | payer OTHER, MEDICAID, SELFPAY ==
--- NOTE | 2024-05-28 | ECG_ITS ---
Test Reason : CHEST PAIN Blood Pressure : / mmHG Vent. Rate : 055 BPM Atrial Rate : 055 BPM P-R Int : 142 ms QRS Dur : 086 ms QT Int : 442 ms P-R-T Axes : 018 013 017 degrees QTc Int : 422 ms Sinus bradycardia with sinus arrhythmia Otherwise normal ECG When compared with ECG of 07-MAY-2024 06:19, No significant change was found Referred By: Generic ED Physician Electronically Signed By:NAVJOT SANON
[2024-05-28 00:52] VITALS: BP 156/89; PULSE 60; O2SAT 100
[2024-05-28 00:54] VITALS: BP 135/85; PULSE 63; RESP 18; TEMP 36.6; O2SAT 97
--- NOTE | 2024-05-28 01:03 | MHC.EDTECH ---
patient BIBA from home with chest pain for 8hrs. patient to room 22, patient changed in to gown and cardiac leads placed on patient.
[2024-05-28 01:09] VITALS: BMI 51.6
--- NOTE | 2024-05-28 01:25 | ED.CHESTPAIN ---
HPI - Chest Pain General Chief Complaint: Chest Pain Stated Complaint: CHEST PAIN Time Seen by Provider: 05/28/24 01:25 Source: patient Mode of arrival: EMS Limitations: no limitations History of Present Illness ED Provider: braden ROSAS narrative: Patient's history of paroxysmal AFib otherwise normal coronary arteries no other cardiac disease last week patient was here for palpitation episode with 2 sets of cardiac enzymes negative patient's feels very anxious Related Data Home Medications ?Medication ?Instructions ?Recorded ?Confirmed cholecalciferol (vitamin D3) 1,250 1,250 mcg PO SA 10/27/21 11/27/23 mcg (50,000 unit) tablet flecainide 150 mg tablet 150 mg PO BID PRN atrial 11/01/21 11/27/23 fibrillation dimethyl fumarate 120 mg mg PO 01/12/22 11/27/23 capsule,delayed release levonorgestrel 20.4 mcg/24 hr (up intrauterine 06/06/23 11/27/23 to 8 yrs) 52 mg intrauterine device (Liletta) Previous Rx's ?Medication ?Instructions ?Recorded metoprolol succinate 25 mg 25 mg PO DAILY #90 tabs 06/06/23 tablet,extended release 24 hr lorazepam 1 mg tablet (Ativan) 1 mg PO BEDTIME PRN anxiety/sleep 05/28/24 #7 tabs Allergies Allergy/AdvReac Type Severity Reaction Status Date / Time glatiramer (copolymer 1) Allergy Intermediate SHORTNESS Verified 05/28/24 01:09 [From COPAXONE] OF BREATH Review of Systems Review of Systems: Yes all other systems are reviewed and are negative PMFSH Past Medical History Medical History Paroxysmal atrial fibrillation Hyperthyroidism Multiple sclerosis Atrial fibrillation with rapid ventricular response PCOS (polycystic ovarian syndrome) Multiple sclerosis SVT (supraventricular tachycardia) Surgical History No pertinent past surgical history Social History Social History Household Members: Significant Other Housing: Apartment Alcohol intake: never Patient Tobacco Use Status: Never used Tobacco Substance Use Type: Marijuana Advance Directives: No Advance Directives Information Provided: Yes service: No Current occupational status: employed Physical Exam Vital Signs: Vital Signs: Last Vital Signs Temp 97.8 F 05/28/24 00:54 Pulse 63 05/28/24 00:54 Resp 18 05/28/24 00:54 BP 135/85 05/28/24 00:54 Pulse Ox 97 05/28/24 00:54 O2 Del Method Room Air 05/28/24 00:54 BMI result Body Mass Index 51.6 Appearance: Alert. Oriented X3. No acute distress. Eyes: PERRLA, No Nystagmus ENT: Pharynx normal. Oral Mucosa moist Neck: Normal inspection. Neck supple. CVS: Normal heart rate and rhythm. Pulses normal. Chest wall tenderness+ Respiratory: No respiratory distress. Equal air entry bilateral, no wheezing/rales/rhonchi Abdomen: Soft and nontender. Bowel sounds are present, no mass palpable, no CVA tenderness Skin: Skin warm and dry. Normal skin color. Normal skin turgor. Extremities: No lower extremity edema. No calf tenderness Neuro: Oriented X 3. No motor deficit. No sensory deficit.No cerebellar signs , cranial nerves II-XII intact Medical Decision Making Medical Decision Making MDM Narrative: Patient with costochondritis with increased anxiety will discharge patient home on ibuprofen and ativan to relax advised to follow with PCP Independent Interpretation I performed an independent interpretation of an: EKG Interpretation: Sinus bradycardia with heart rate of 55 beats per minute normal interval normal axis no acute ST-T changes no acute ischemia Discharge Plan Discharge Clinical Impression: Costalchondritis Patient Disposition: Home, Self-Care Instructions: Costochondritis (ED) Additional Instructions: Take ibuprofen for pain Ativan 1 tablet every night as needed for anxiety/sleep Prescriptions: New lorazepam [Ativan] 1 mg tablet 1 mg PO BEDTIME PRN (Reason: anxiety/sleep) Qty: 7 0RF No Action cholecalciferol (vitamin D3) 1,250 mcg (50,000 unit) Tablet 1,250 mcg PO SA flecainide 150 mg tablet 150 mg PO BID PRN (Reason: atrial fibrillation) dimethyl fumarate 120 mg capsule,delayed release(DR/EC) PO Liletta 20.4 mcg/24 hrs (8 yrs) 52 mg intrauterine device intrauterine metoprolol succinate 25 mg tablet extended release 24 hr 25 mg PO DAILY Qty: 90 3RF Print Language: Moroccan
[2024-05-28 02:08] VITALS: BP 120/78; PULSE 61; RESP 15; TEMP 36.7; O2SAT 98
[2024-05-28 02:10] VITALS: BP 120/78; PULSE 61; RESP 15; TEMP 36.7; O2SAT 98
== END 2024-05-28 02:12 | disposition home or self-care (01) ==
PROVIDERS: Emergency Provider Internal Medicine; PCP Internal Medicine
DX: M94.0 Chondrocostal junction syndrome [Tietze] (principal)
CPT/HCPCS: 93005; 99283; 99284

== ENCOUNTER 2024-08-15 15:48 | Outpatient (REF) | payer OTHER, MEDICAID, SELFPAY ==
--- OUTSIDE RECORDS SUMMARY | 2024-08-15 15:51 | XMS_ITS ---
Author Name [facility] Organization Unknown History of Medication Use Medication Directions Dispensed Refills Start Date End Date Status escitalopram (LEXAPRO) tablet 10 mg Take 1 tablet (10 mg total) by mouth daily. 4 active fluconazole (DIFLUCAN) 150 MG tablet Take 1 tablet (150 mg total) by mouth once a week. 4 active methylPREDNISolone sodium succinate (SOLU-Medrol) injection 125 mg 125 mg, Intravenous, Once, On Sun12/31/23 at 1030, For 1 doseGive 30 minutes prior to ocrelizumab.??Admin ister over 2-3 minutes 4 completed sodium chloride 0.9% (NS) infusion 500 mL, Intravenous, Once, On Sun12/31/23 at 1030, For 1 doseAdminister at 999 mL/hr. 4 completed acetaminophen (TYLENOL) tablet 975 mg 975 mg, Oral, Once, On Sun12/31/23 at 1030, For 1 doseAdminister 30 minutes prior to ocrelizumab. 4 completed ocrelizumab (OCREVUS) 300 mg in sodium chloride (NS) 0.9 % 250 mL IVPB 300 mg, Intravenous, Once, On Sun12/31/23 at 1030, For 1 doseMust use in-line 0.22 micron filter. Administer though a dedicated IV line.??First 2 infusions (300 mg dose): Begin infusion at 30 mL/hr. Increase by 30 mL/hr every 30 minutes to a maximum rate of 180 ml/hr. Infusion duration: 2.5 hours or 4 completed diphenhydrAMINE (BENADRYL) injection 50 mg 50 mg, Intravenous, Once, On Sun12/31/23 at 1030, For 1 doseGive 30 minutes prior to ocrelizumab. IV push over 2-3 minutes.??See PO diphenhydramine order. Please give PO or IV.??Common Side Effects: Drowsiness, stomach upset, confusion, dry mouth.??Administer undiluted. Maximum rate 25 mg/min. 4 completed Dimethyl Fumarate 240 MG CPDR 4 active metoprolol succinate (TOPROL-XL) 24 hr tablet 25 mg Take 1 tablet (25 mg total) by mouth daily. 4 active Cholecalciferol (VITAMIN D3 PO) Take by mouth. 4 active levonorgestrel (LILETTA) 20.1 MCG/DAY IUD 1 each by Intrauterine route once. 4 active Problems Problem Status Onset Date Problem Type Date of Resoluti on Source Multiple sclerosis active 2023-12-21 ProblemAct [id number]
[2024-08-15 17:48] LABS: Estimated Average Glucose 111 mg/dL; Hemoglobin A1C 138.4834 umol/L; Hemoglobin A1c % 5.5 % (<6.0)
[2024-08-15 17:51] LABS: Anion Gap 10 (12-20); Blood Urea Nitrogen 9 mg/dL (9-16); Calcium 9.3 mg/dL (8.4-10.2); Carbon Dioxide 25 mmol/L (22-29); Chloride 107 mmol/L (96-108); Cholesterol 168 mg/dL (<200); Estimated Glomerular Filt Rate > 60; Glucose Random 91 mg/dL (60-115); HDL Cholesterol 32 mg/dL (>40); LDL Cholesterol Calculated 107 mg/dL (<100); Sodium 138 mmol/L (135-145); Triglycerides 147 mg/dL (<150)
[2024-08-16 04:43] LABS: HIV AB/AG Nonreactive (Nonreactive); HIV Num 1 0.06 S/CO (0.00-0.99); ~HepC Num1 0.16 S/CO (0.00-0.79); ~Hepatitis C Antibody Nonreactive (Nonreactive)
== END 2024-08-15 15:49 | disposition home or self-care (01) ==
LOC: HO.HHCL 15:48
PROVIDERS: Visit Provider Internal Medicine
DX: Z00.00 Encounter for general adult medical examination without abnormal findings (principal); Z13.1 Encounter for screening for diabetes mellitus
CPT/HCPCS: 36415; 80048; 80061; 83036; 86803; 87389

== ENCOUNTER 2024-12-02 13:36 | Outpatient (AMB) | payer OTHER, SELFPAY ==
[2024-12-02 13:38] VITALS: BP 130/74; PULSE 57; BMI 47.6
--- NOTE | 2024-12-02 13:38 | A.OFFVIS_ITS ---
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 She has been doing well overall. She has been taking sertraline and she thinks that has helped her depression anxiety very much. She is much more energetic. She says she is also more motivated now to participate in weight loss program. She was not had any episodes of atrial fibrillation or prolonged palpitations. Has not taken flecainide. Takes metoprolol on a regular basis. [facility] Medical History Paroxysmal atrial fibrillation Hyperthyroidism Multiple sclerosis Atrial fibrillation with rapid ventricular response PCOS (polycystic ovarian syndrome) Multiple sclerosis SVT (supraventricular tachycardia) Surgical History No pertinent past surgical history Social History Household Members: Significant Other Housing: Apartment Alcohol intake: never Patient Tobacco Use Status: Never used Tobacco Substance Use Type: Marijuana service: No Current occupational status: employed Review of Systems Const Denies chills, Denies fatigue, Denies fever(s), Denies frequent falls, Denies weakness, Denies weight gain and Denies weight loss ENT Denies dizziness Card Denies chest pain, Denies leg edema, Denies lightheadedness, Denies palpitations, Denies dyspnea, Denies dyspnea on exertion, Denies orthopnea and Denies other (loss of consciousness) Resp Denies cough, Denies dyspnea and Denies dyspnea on exertion GI Denies hematochezia and Denies change in stool character Musc Denies abnormal gait, Denies muscle weakness, Denies numbness, Denies radiating pain into limb and Denies tingling Neuro Denies Abnormal speech present, Denies abnormal gait, Denies dizziness, Denies frequent falls, Denies numbness, Denies tingling and Denies weakness Endo Denies fatigue and Denies palpitations Physical Exam Vital Signs: Last Vital Signs Pulse 57 12/02/24 13:38 BP 130/74 12/02/24 13:38 BMI result Body Mass Index 47.6 Const General: cooperative, comfortable, no acute distress, alert, awake and anxious Nutritional Appearance: obese morbidly obese Orientation/consciousness: patient oriented x3 Limitations: no limitations HEENT Head: Yes normocephalic and Yes atraumatic Neck Neck: Yes trachea midline, Yes supple and Yes no JVD Chest Chest palpation & inspection: normal inspection of the chest Resp Effort & Inspection: normal respiratory effort Auscultation: clear to auscultation bilaterally Cardio Jugular venous distension: no JVD Palpation: normal PMI Rate: regular rate Rhythm: regular rhythm Heart sounds: S1 normal heart sound present, S2 normal heart sound present, no click, no gallops, no murmurs and no rubs GI Auscultation: normal bowel sounds Skin General skin exam: no rashes or lesions noted Neuro General: patient oriented x3 and no focal motor deficits Speech: No Abnormal speech present Extrem General: Yes no clubbing, cyanosis or edema Psych Appearance: grossly normal Office Procedures EKG Details: EKG shows normal sinus rhythm with normal EKG [id number], Complete Assessment & Plan Assessment & Plan (1) Paroxysmal atrial fibrillation: Code(s): I48.0 - Paroxysmal atrial fibrillation Category: Medical Plan: Highly symptomatic paroxysmal atrial fibrillation without any obvious clinical recurrence. Continue metoprolol therapy. Continue participate in aggressive weight loss program which will help. Avoidance of stimulants was discussed. P.r.n. flecainide use was discussed. She understands management well. (2) Morbid obesity: Code(s): E66.01 - Morbid (severe) obesity due to excess calories Category: Medical Plan: Significant weight which is a big risk factor for future health problems including recurrent atrial fibrillation. Discussed about management of weight. She understands. We discussed about participate in regular physical activity and weight loss program. She understands and agrees. She does not want to currently get on to any additional medications for weight loss. Will follow up in the clinic in 1 year's time, sooner p.r.n.. Thank you for allowing me to partake in her care Coding Level of Care Code Est Pt Level 4 (28348) Complex EM visit Add On G2211 Diagnoses Paroxysmal atrial fibrillation I48.0 Morbid obesity E66.01 CPT Codes EKG - CPT: 51540-[id number], Complete ([id number])
--- OUTSIDE RECORDS SUMMARY | 2024-12-02 16:34 | XMS_ITS | Clinical Summary ---
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 Active metoprolol succinate (TOPROL-XL) 25 mg 24 hr tablet Take 1 tablet (25 mg total) by mouth 1 (one) time each day. 4 Active sertraline (ZOLOFT) 25 mg tablet Take 1 tablet (25 mg total) by mouth 1 (one) time each day. Active hydrOXYzine HCL (ATARAX) 25 mg tablet Take 1 tablet (25 mg total) by mouth every 8 hours as needed. 4 Active ocrelizumab (OCREVUS IV) Infuse into a venous catheter. Active flecainide (TAMBOCOR) 150 mg tablet Take by mouth. Activ e Active Problems Problem Noted Date Diagnosed Date Multiple sclerosis 12/21/2023 Immunizations Name Administration Dates Next Due Pfizer SARS-CoV-2 COVID-19, mRNA, LNP-S, preservative free 10/06/2021 Surgical History Surgery Date Site/Laterality Comments OTHER SURGICAL HISTORY PROCEDURE:Aspiration TUBAL LIGATION PROCEDURE:TUBAL LIGATION Medical History Medical History Date Comments Atrial fibrillation (CMS/HCC) DX :Atrial fibrillation (HCC) PCOS (polycystic ovarian syndrome) DX:PCOS (polycystic ovarian syndrome) Family History Medical History Relation Name Comments Autism Cousin Cervical cancer Cousin Cancer Maternal Grandmother Diabetes Maternal Grandmother Schizophrenia Maternal Grandmother Depression Mother Ovarian cancer Mother Thyroid disease Mother Diabetes Paternal Grandmother Multiple sclerosis Neg Hx Relation Name Status Comments Cousin Alive Maternal Grandmother Mother Paternal Grandmother Social History Tobacco Use Types Packs/Day Years Used Date Smoking Tobacco: Unknown Tobacco Cessation:Counseling Given: Not Answered Comments Unknown Sex and Gender Information Value Date Recorded Sex Assigned at Not on file Legal Sex Female 5:03 PM EDT Gender Identity Not on file Sexual Orientation Not on file Obstetrics History Last Filed Vital Signs Vital Sign Reading Time Taken Comments Blood Pressure 118/79 08/04/2024 3:41 PM EST Pulse 76 08/04/2024 3:41 PM EST Temperature 36 ??C (96.8 ??F) 08/04/2024 3:41 PM EST Respiratory Rate 16 07/09/2024 1:07 PM EST Oxygen Saturation 97% 08/04/2024 3:41 PM EST Inhaled Oxygen Concentration - - Weight 127 kg (280 lb) 08/04/2024 3:41 PM EST Height 160 cm (5' 3 ) 08/04/2024 3:41 PM EST Body Mass Index 49.6 08/04/2024 3:41 PM EST Plan of Treatment Upcoming Encounters Date Type Department Care Team (Late st Contact Info) Description 01/07/2025 8:00 AM EDT Appointment [facility] [place] [address] [phone] 01/07/2025 8:00 AM EDT Office Visit [facility] [place] 175 [facility] [address] [place] [phone] Shiloh Morales MD 175 [facility] [address] [place] [phone] Health Maintenance Due Date Last Done Comments Cervical Cancer Screening: Pap Smear 02/15/2020 HPV Vaccines (2 - 3-dose series) 08/05/2020 07/08/2020 DTaP,Tdap,and Td Vaccines (2 - Td or Tdap) 02/17/2021 02/17/2011 Social Influencers of Health Screening 03/18/2024 COVID-19 Vaccine ( season) 2024 10/06/2021 Influenza Vaccine (#1) 2024 , 05/11/2022, 05/26/2021, Additional history exists Depression Screening 05/15/2025 05/15/2024 Cholesterol Screening (Lipid Panel) 06/01/2027 06/01/2022 Meningococcal ACWY Vaccine Completed 09/26/2016 Meningococcal B Vaccine Completed 01/27/2020, 11/19 Pneumococcal Vaccine: Pediatrics (0 to 5 Years) and At-Risk Patients (6 to 64 Years) Aged Out 01/27/2020 No longer eligible based on patient's age to complete this topic Hepatitis B Vaccines Completed 07/08/2020, 03/15/2020, 1999 MMR Vaccines Completed 07/08/2020, 04/10/2003 Varicella Vaccines Aged Out 07/08/2020, 01/14/2009 No longer eligible based on patient's age to complete this topic HIV Screening Completed 07/17/2023 Hepatitis C Screening Completed 07/17/2023 HIB Vaccines Aged Out No longer eligi ble based on patient's age to complete this topic Hepatitis A Vaccines Aged Out No long er eligible based on patient's age to complete this topic IPV Vaccines Aged Out No longer eligi ble based on patient's age to complete this topic RSV Immunization Patients Under 20 months Aged Out No longer eligible based on patient's age to complete this topic Insurance [facility] [address] [place] [address] MEDICAID - [place] Care Teams District Scout Executive Relationship Specialty Start Date End Date Tiffanie Borjas MD [address] [place] [address] PCP - General 11/26/23
--- OUTSIDE RECORDS SUMMARY | 2024-12-02 16:34 | XMS_ITS | Clinical Summary ---
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 0 11/05/2023 Active Cholecalciferol (VITAMIN D3 PO) Take by mouth. 0 Activ e levonorgestrel (LILETTA) 20.1 MCG/DAY IUD 1 each by Intrauterine route once. 0 Active escitalopram (LEXAPRO) tablet 10 mg Take 1 tablet (10 mg total) by mouth daily. 30 tablet 3 02/18/2024 Active fluconazole (DIFLUCAN) 150 MG tablet Take 1 tablet (150 mg total) by mouth once a week. 0 02/01/2024 Active Ocrelizumab (OCREVUS IV) Inject into the vein. 0 Active Active Problems Problem Noted Date Diagnosed Date Multiple sclerosis 12/21/2023 Family History Medical History Relation Name Comments [...] Tobacco: Unknown Tobacco Cessation:Counseling Given: Not Answered Sex and Gender Information Value Date Recorded Sex Assigned at Female 11/26/2023 9:17 AM EDT Gender Identity Not on file Sexual Orientation Not on file Job Start Date Occupation Industry Not on file Not on file Not on file Last Filed Vital Signs Vital Sign Reading Time Taken Comments Blood Pressure 114/79 03/18/2024 2:40 PM EDT Pulse 71 03/18/2024 2:40 PM EDT Temperature 36.1 ??C (97 ??F) 03/18/2024 2:40 PM EDT Respiratory Rate 18 01/17/2024 11:4 7 AM EDT Oxygen Saturation 97% 03/18/2024 2:40 PM EDT Inhaled Oxygen Concentration - - Weight 128.5 kg (283 lb 3.2 oz) 03/18/2024 2:40 PM EDT Height 160 cm (5' 3 ) 03/18/2024 2:40 PM EDT Body Mass Index 50.17 03/18/2024 2:40 PM EDT Plan of Treatment Health Maintenance Due Date Last Done Comments Depression Screening 2011 Gonorrhea and Chlamydia Screening 02/15/2012 BMI Counseling 2017 Preventative Health Evaluation 2017 Cervical Cancer Screening (Pap Smear) 02/15/2020 DTap / Tdap / Td (2 - Td or Tdap) 02/17/2021 02/17/2011 COVID-19 Vaccine ( season) 2024 10/06/2021, 05/05/2021, 04/14/2021 Influenza Vaccine (#1) 2024 , 05/11/2022, 05/26/2021, Additional history exists Pneumococcal Vaccine Aged Out 01/27/2020 No long er eligible based on patient's age to complete this topic Hepatitis B Vaccines Completed 07/08/2020, 03/15/2020, 1999 Hepatitis C Screening Completed 07/17/2023 RSV Ped < 20 months Aged Out No longe r eligible based on patient's age to complete this topic Insurance Payer Benefit Plan / Group Subscriber ID Effective Dates Phone Address [facility] [id number] 2023-Prese nt [address] [place] [address] [facility] [place] [facility] MEDICAID [place] [id number] 2024-Pre s ent [address] [place] [address] Medicaid [facility] [id number] 2024-Ligia ponce [address] [place] [address] Care Teams Railroad Super[employer] Relationship Specialty Start Date End Date Tiffanie Borjas MD [address] [address] [place] [phone] PCP - General Internal Medicine 11/26/23
== END 2024-12-02 14:05 | disposition home or self-care (01) ==
LOC: HO.HCS 13:37
PROVIDERS: PCP Internal Medicine; Visit Provider Internal Medicine Cardiovascular Disease
DX: I48.0 Paroxysmal atrial fibrillation (principal); E66.01 Morbid (severe) obesity due to excess calories
CPT/HCPCS: 93010; 99214

== ENCOUNTER → 2024-12-02 13:36 | Outpatient (BNVA) | payer OTHER, SELFPAY | PROVIDERS: PCP Internal Medicine; Visit Provider Internal Medicine Cardiovascular Disease | DX: I48.0 Paroxysmal atrial fibrillation (principal); E66.01 Morbid (severe) obesity due to excess calories; Z68.42 Body mass index [BMI] 45.0-49.9, adult | CPT/HCPCS: 93005 ==